=== PATIENT | male | born 1960 | race Caucasian/White ===

== ENCOUNTER 2018-07-23 22:12 | Inpatient (IN) | payer OTHER, SELFPAY ==
[2018-07-23] VITALS (19 sets, daily range): BP systolic 160–229; BP diastolic 81–156; PULSE 68–89; RESP 4–37; TEMP 36.6–36.8; O2SAT 91–98
--- NOTE | 2018-07-23 22:40 | W.ED.GENAD ---
Discharge Plan Disposition Patient Disposition: [facility] INPATIENT Condition: Poor Discharge Details Chief Complaint: SOB Clinical Impression: COPD exacerbation Primary Care Provider: None,None ED Provider: Camacho Brown Home Meds and New Rx's Prescriptions: No Action ibuprofen 200 mg Tablet 600 mg PO PRN PRNRF: 0 Medical Decision Making Patient presenting with increasing shortness of breath with diffuse wheezing throughout. He is a smoker. He has not seen a physician in years. His EKG is unremarkable other than left axis. Will start on neb treatments and give steroids. Will check laboratory studies including troponin. Will get chest x-ray. We will then reevaluate. 00:05 - Patient feels like he is breathing a little better but he is still short of breath with wheezing. His labs are unremarkable including normal BNP and troponin. Chest x-ray is unremarkable per my review and prelim radiology read. His blood pressure has come down but is still high. Room air saturations are > 95% after nebs. He is still SOB with wheezing and will benefit from admision for frequent nebs and IV steroids. He is agreeable to this. Case discussed with hospitalist, Dr. Meyer, who will accept the patient to hospitalist service. I have discussed code status with the patient. He does not wish to be intubated nor does he want to have CPR or resuscitation. I asked him a couple of times if he was sure about this. He replied yes. He does have family (brother and sister) but has not discussed this with them at all. Lab Data Lab results reviewed: Yes I reviewed the patient's lab results. ECG Data Attestation: I personally reviewed and interpreted this ECG (s) as follows: Prior ECG tracings: not available for review Interpretation: Sinus rhythm at 74. Left axis. Normal intervals. No acute ST changes. HPI General Mode of arrival: wheelchair. Date/Time Provider Initiated Documentation: 07/23/18 22:34. Limitations to Documentation: no limitations. Information obtained by: patient. HPI Narrative: Patient presents to ED with complaint of shortness of breath and cough. Patient reports symptoms gradually getting worse over the last couple of weeks. Cough is nonproductive. Shortness of breath is to the point where he could not work today. He describes some chest tightness for the last few days that he associated with coughing. He has had no fever. He has developed a rash over the last couple of days which is pleuritic in nature. He does smoke but is down to about 3 cigarettes a day as opposed to 2 packs. He does not have a primary care doctor and has not seen a physician in years. He denies any leg pain or swelling. He did not have acute onset of shortness of breath. He finally came in tonight as his breathing has just been getting steadily worse. Related Data Home Medications Medication Instructions Recorded Confirmed ibuprofen 600 mg PO PRN PRN 07/23/18 07/23/18 Allergies Allergy/AdvReac Type Severity Reaction Status Date / Time nut - unspecified Allergy Severe Anaphylaxsi Unverified 07/23/18 22:26 s latex Allergy Unverified 07/23/18 23:27 General Stated Complaint: SOB LILI: 2 Review of Systems Review of Systems 11/24 Review of Systems completed and is negative except as stated above in HPI (Systems reviewed: Const, Eyes, ENT, Resp, CV, GI, , MSK, Skin, Neuro) PFSH Social History Smoking/Tobacco Use Status: Current every day Tobacco Type: cigarettes Smoking cigarettes per day: 3 Exam Narrative Exam Narrative: Vitals: Afebrile. Markedly hypertensive. Normal saturations. Const: WDWN male in NAD. HEENT: NC/AT. Normal facial exam. Eyes: Normal conjunctiva and sclera. Neck: Supple. Trachea midline. Lungs: Normal respiratory effort. Lungs with diffuse wheezing throughout. Cor: RRR without murmur/gallop. Good radial pulses. GI: Soft. NT/ND. No guarding or rebound. Neuro: A+O x 3. CN grossly in tact. Good strength and no focal deficit. Ext: No C/C/E. No deformity or tenderness. Venous stasis changes of BLE. Skin: Warm and dry with pruritic, papular type rash that involves torso and extremities. Course Vital Signs Temperature 97.9 F 07/23/18 22:18 Pulse 74 07/23/18 22:18 Respiratory Rate 18 07/23/18 22:18 Blood Pressure 205/124 H 07/23/18 22:18 Pulse Oximetry 97 07/23/18 22:18 Temperature 97.9 F 07/23/18 22:18 Pulse 74 07/23/18 22:18 Respiratory Rate 24 07/23/18 22:29 Respiratory Effort 07/23/18 22:29 Blood Pressure 205/124 H 07/23/18 22:18 Blood Pressure Position Sitting 07/23/18 22:18 Pulse Oximetry 97 07/23/18 22:18 Oxygen Delivery Method Room Air 07/23/18 22:18 Oxygen Flow Rate 0 07/23/18 22:18 Pain Level 0 07/23/18 22:29
[2018-07-23 22:49] LABS: Abs Immature Grans 0.01 k/cumm (0.0-0.09); Absolute Basophil Count 0.02 k/cumm (0.0-0.2); Absolute Lymphocyte Count 0.95 k/cumm (1.2-3.4); Absolute Monocyte Count 0.32 k/cumm (0.11-0.7); Basophils % 0.6; Eosinophils % 11.4; HCT 44.8 % (40.0-50.0); HGB 15.1 g/dL (13.5-17.5); Immature Grans % 0.3; Lymphocytes % 27.1; Mean Corp. HGB Concentration 33.7 g/dL (32.0-36.0); Mean Corpuscular Hemoglobin 28.1 pg (27.0-33.0); Mean Corpuscular Volume 83.3 fL (80-95); Mean Platelet Volume 10.6 fL (8.0-11.0); Monocytes % 9.1; Neutrophils % 51.5; Platelet Count 143 x1000/uL (130-400); RBC 5.38 m/cumm (4.50-6.00); RBC Distribution Width 15.8 % (11.8-14.1)
[2018-07-23] MEDS: Albuterol/Ipratropium 3 ML UPD VIAL UPD (22:49)
[2018-07-23] MEDS: methylPREDNISolone SUCC 125 MG VIAL IVP (22:49)
[2018-07-23] MEDS: Albuterol 2.5 MG/3 ML INH SOLN VIAL UPD ×2 (23:04→23:12)
[2018-07-23 23:09] LABS: ALT 58 U/L (12-78); Albumin 3.3 g/dL (3.4-5.0); Alkaline Phosphatase 130 U/L (46-116); Anion Gap 7.8 mmol/L (3-11); BUN 15 mg/dL (7-18); Bilirubin, Total 0.3 mg/dL (0.2-1.0); CO2 29.2 mmol/L (21.0-32.0); Calcium 8.7 mg/dL (8.5-10.1); Chloride 105 mmol/L (98-107); Glucose 97 mg/dL (70-100); Magnesium 1.7 mg/dL (1.8-2.4); NT-proBNP 150 pg/mL; Potassium 4.1 mmol/L (3.5-5.1); Sodium 142 mmol/L (136-145); Total Protein 7.9 g/dL (6.4-8.2); Troponin I 0.02 ng/mL (0.00-0.06)
[2018-07-23 23:29] LABS: AST 74 U/L (15-37)
--- NOTE | 2018-07-23 23:37 | DI.RAD_ITS ---
SYMPTOM/DIAGNOSIS: COUGH, SOB PA AND LATERAL CHEST: The heart is normal in size. The lungs are clear. The mediastinal structures and pleura appear intact. CONCLUSION: Normal chest.
--- NOTE | 2018-07-23 23:41 | DI.VRAD_ITS ---
EXAM: XR Chest, 2 Views EXAM DATE/TIME: 07/23/2018 10:41 PM CLINICAL HISTORY: 58 years old, male; Signs and symptoms; Cough and shortness of breath; Patient HX: Cough, SOB x couple weeks, worsening TECHNIQUE: Imaging protocol: XR of the chest, 2 views. COMPARISON: No relevant prior studies available. FINDINGS: Lungs: Unremarkable. No consolidation. Pleural space: Unremarkable. No evidence of pneumothorax. Heart/Mediastinum: Unremarkable. Heart size within normal limits for technique. Bones/joints: Unremarkable. IMPRESSION: No acute findings. Dictated and Authenticated by: Jay Meneses MD. Ordering:NENA Sauer MD
[2018-07-24] VITALS (14 sets, daily range): BP systolic 130–179; BP diastolic 88–100; PULSE 67–95; RESP 2–24; TEMP 35.9–36.4; O2SAT 93–97
[2018-07-24 01:49] LABS: C-Reactive Protein 0.41 mg/dL (0.0-0.3)
[2018-07-24] MEDS: Albuterol 2.5 MG/3 ML INH SOLN VIAL UPD (01:55)
[2018-07-24] MEDS: Normal Saline Flush 10 ML SYR IVP ×3 (02:09→08:16)
[2018-07-24] MEDS: MAGNESIUM SULFATE 2 GM/50 ML BAG IVPB (02:09)
[2018-07-24 02:20] LABS: Procalcitonin < 0.1 ng/mL
[2018-07-24 02:22] LABS: ESR 15 MM/HR (1-20)
[2018-07-24 02:38] LABS: D-Dimer 548 ng/mlFEU (<500)
[2018-07-24] MEDS: amLODIPine 5 MG TAB PO ×2 (02:44→18:17)
[2018-07-24] MEDS: methylPREDNISolone SUCC 125 MG VIAL 80 MG IVP (05:41)
[2018-07-24 07:01] LABS: Abs Immature Grans 0.01 k/cumm (0.0-0.09); Absolute Basophil Count 0.01 k/cumm (0.0-0.2); Absolute Eosinophil Count 0.02 k/cumm (0.0-0.7); Absolute Lymphocyte Count 0.54 k/cumm (1.2-3.4); Absolute Monocyte Count 0.07 k/cumm (0.11-0.7); Absolute Neutrophil Count 2.57 k/cumm (1.2-6.7); Basophils % 0.3; Eosinophils % 0.6; Immature Grans % 0.3; Lymphocytes % 16.8; Mean Corp. HGB Concentration 33.3 g/dL (32.0-36.0); Mean Corpuscular Hemoglobin 27.6 pg (27.0-33.0); Mean Corpuscular Volume 82.9 fL (80-95); Mean Platelet Volume 10.5 fL (8.0-11.0); Monocytes % 2.2; Neutrophils % 79.8; Platelet Count 145 x1000/uL (130-400); RBC 5.43 m/cumm (4.50-6.00); RBC Distribution Width 15.7 % (11.8-14.1); White Blood Cell Count 3.22 k/cumm (4.4-10.8)
[2018-07-24 07:02] LABS: Anion Gap 10.4 mmol/L (3-11); BUN 14 mg/dL (7-18); CO2 25.6 mmol/L (21.0-32.0); CREATININE 1.15 mg/dL (0.70-1.30); Chloride 104 mmol/L (98-107); Glucose 192 mg/dL (70-100); Potassium 4.3 mmol/L (3.5-5.1); Sodium 140 mmol/L (136-145)
[2018-07-24] MEDS: Albuterol/Ipratropium 3 ML UPD VIAL UPD ×4 (07:40→20:51)
[2018-07-24] MEDS: Budesonide/Formoterol 160/4.5 6 GM 60 PUFF INH IH ×2 (07:47→20:50)
[2018-07-24] MEDS: Enoxaparin 40 MG/0.4 ML SYR SC (08:15)
[2018-07-24] MEDS: Ibuprofen 600 MG TAB PO ×2 (09:51→16:36)
[2018-07-24] MEDS: Chlorthalidone 25 MG TAB PO (10:11)
--- NOTE | 2018-07-24 11:34 | PHARADMIT ---
Admission Pharmacy Clinical Review COPD EXACERBATION (new diagnosis) Code Status DNR/DNI Current Weight Wgt-97.2 kg Renally Cleared and Narrow Therapeutic Index Meds CrCl~ 76 mL/min Meds-OK QTc Value / Action Taken QTc-413 NA BP Control, Fever BP- 167/100 Tmax- 36.8C Electrolytes reviewed Na-140 K+4.3 Mag-2.0 DVT Prophylaxis Lovenox 40m Opiate Usage / Scheduled Bowel Regimen Ordered No Yes Plt/SCr for Heparin / Enoxaparin Plts-145 SCr-1.15 INR for Warfarin NA H/H stable, WBC/Bands H&H- 15.0/45.0 WBC- 3.22 Antibiotic appropriateness NA Cultures and Sensitivities NA Surgical ABX d/c within 24 hr NA DM control / Insulin Dosing BG- 192 Heart Failure (Check EF%) (SAQIB's, B-Block, Diuretics) Norvasc, Chlorthalidone(both New), IV to PO Switch No Home Meds Reviewed Yes Home Meds Not Ordered None, Ordered Comments
--- NOTE | 2018-07-24 11:57 | W.PM.PROGNOT ---
Date of Service Date of service: 07/24/18 Time of Service: 11:57 Assessment and Plan (1) Restrictive airway disease: Start date: 07/24/18 Start time: 12:10 Current visit: Yes Status: Acute Questionable underlying COPD, has never had PFT will need an outpatient study to diagnose. Treat with steroids, nebs, udrafts. Spoke at length about smoking cessation. Lungs with rhonchi, RA saturation 97% however RODRIGUEZ. (2) HTN (hypertension): Start date: 07/24/18 Start time: 12:11 Current visit: Yes Status: Chronic Was being monitored as an outpatient started on norvasc and chlorithadone for BP in 190's systolically and 100's diastolically. Continue to monitor bp. (3) Tobacco abuse: Start date: 07/24/18 Start time: 12:12 Current visit: Yes Status: Acute Endorses smoking marble 1/2 pack daily with marijuana. Nicoderm patch ordered. Smoking cessation discussed. (4) Headache: Start date: 07/24/18 Start time: 12:13 Current visit: Yes Status: Acute C/O h.a x weeks, could be related to BP, ibuprofen 600 given for headache. Recommend follow up with neurology if headache continues. (5) DVT prophylaxis: Start date: 07/24/18 Start time: 12:13 Current visit: Yes Status: Acute enoxaparin Subjective Patient reports: no new complaints Interval history since last seen: Continues to have SOB with excertion, Lungs with rhonchi, slight expiratory wheezing to upper lobes. RA saturation 97. Transitioned to PO steroids BID. Asking to go home though he could use another night of nebs. Nebs changed to every 4 hours, continue updrafts, symbicort, steroids. Spoke at length about smoking cessation and COPD, will need PFT as an outpatient. Nicoderm patch ordered for patient. Also c/o headache could be blood pressure related ibuprofen for headache. BP at 167/100 after on dose norvasc, chloritaldone added to bp medication. Continue to monitor patient and make adjustments as needed. Denies SOB, CP, n/v/d Exam Const General: cooperative and no acute distress HENMT Head: normal to inspection Eyes General: appearance normal, both eyes and all related structures Neck Lymphatic: no lymphadenopathy noted and no lymphedema noted Chest Chest: normal inspection of the chest Resp Effort & Inspection: able to speak in complete sentences Auscultation: rhonchi and wheezes (scattered) expiratory wheezes Cardio Jugular venous pressure: no JVD Rate: regular rate Rhythm: regular rhythm GI Inspection: normal to inspection Palpation: soft Auscultation: normal bowel sounds Skin General skin exam: no rashes or lesions noted Rashes: no rashes Neuro General: alert, awake and oriented x3 Cognition: normal cognition Speech: speech normal Objective Objective Clinical Data: Abnormal lab results 07/23/18 07/23/18 07/23/18 Range/Units 00:35 22:35 22:35 WBC 3.50 L (4.4-10.8) k/cumm RDW 15.8 H (11.8-14.1) % Absolute Lymphocytes 0.95 L (1.2-3.4) k/cumm Absolute Monocytes (0.11-0.7) k/cumm D-Dimer (<500) ng/mlFEU Glucose (70-100) mg/dL Magnesium 1.7 L (1.8-2.4) mg/dL AST 74 H (15-37) U/L Alkaline Phosphatase 130 H (46-116) U/L C-Reactive Protein 0.41 H (0.0-0.3) mg/dL Albumin 3.3 L (3.4-5.0) g/dL 07/24/18 07/24/18 07/24/18 Range/Units 00:35 06:36 06:36 WBC 3.22 L (4.4-10.8) k/cumm RDW 15.7 H (11.8-14.1) % Absolute Lymphocytes 0.54 L (1.2-3.4) k/cumm Absolute Monocytes 0.07 L (0.11-0.7) k/cumm D-Dimer 548 H (<500) ng/mlFEU Glucose 192 H D (70-100) mg/dL Magnesium (1.8-2.4) mg/dL AST (15-37) U/L Alkaline Phosphatase (46-116) U/L C-Reactive Protein (0.0-0.3) mg/dL Albumin (3.4-5.0) g/dL Vital Signs Temperature 36.2 C L 07/24/18 07:44 Temperature Source Tympanic 07/24/18 07:44 Pulse 95 H 07/24/18 07:44 Pulse Rhythm Regular 07/24/18 07:56 Pulse 72 07/24/18 00:20 Respiratory Rate 24 07/24/18 07:44 Respiratory Effort 07/24/18 07:56 Respiratory Depth Shallow 07/24/18 07:56 Respiratory Pattern Tachypnea 07/24/18 07:56 Blood Pressure 167/100 H 07/24/18 07:44 Blood Pressure Mean 109 07/24/18 00:01 Blood Pressure Position Sitting 07/23/18 22:18 Pulse Oximetry 97 07/24/18 07:44 Oxygen Delivery Method Room Air 07/24/18 07:44 Oxygen Flow Rate 0 07/24/18 07:44 Pain Level 0 07/24/18 07:44 Intake & Output 07/23/18 07/23/18 07/24/18 11:59 23:59 11:59 Intake Total 570 / 570 Balance 570 / 570 Weight 96.1 kg 97.2 kg Intake: Oral 570 / 570 Laboratory Results WBC 3.22 k/cumm (4.4-10.8) L 07/24/18 06:36 RBC 5.43 m/cumm (4.50-6.00) 07/24/18 06:36 Hgb 15.0 g/dL (13.5-17.5) 07/24/18 06:36 Hct 45.0 % (40.0-50.0) 07/24/18 06:36 MCV 82.9 fL (80-95) 07/24/18 06:36 MCH 27.6 pg (27.0-33.0) 07/24/18 06:36 MCHC 33.3 g/dL (32.0-36.0) 07/24/18 06:36 RDW 15.7 % (11.8-14.1) H 07/24/18 06:36 Plt Count 145 x1000/uL (130-400) 07/24/18 06:36 MPV 10.5 fL (8.0-11.0) 07/24/18 06:36 Immature Gran % 0.3 07/24/18 06:36 Neutrophils % 79.8 07/24/18 06:36 Lymphocytes % 16.8 07/24/18 06:36 Monocytes % 2.2 07/24/18 06:36 Eosinophils % 0.6 07/24/18 06:36 Basophils % 0.3 07/24/18 06:36 Absolute Neutrophils 2.57 k/cumm (1.2-6.7) 07/24/18 06:36 Absolute Lymphocytes 0.54 k/cumm (1.2-3.4) L 07/24/18 06:36 Absolute Monocytes 0.07 k/cumm (0.11-0.7) L 07/24/18 06:36 Absolute Eosinophils 0.02 k/cumm (0.0-0.7) 07/24/18 06:36 Absolute Basophils 0.01 k/cumm (0.0-0.2) 07/24/18 06:36 ESR 15 MM/HR (1-20) 07/23/18 00:35 D-Dimer 548 ng/mlFEU (<500) H 07/24/18 00:35 Sodium 140 mmol/L (136-145) 07/24/18 06:36 Potassium 4.3 mmol/L (3.5-5.1) 07/24/18 06:36 Chloride 104 mmol/L (98-107) 07/24/18 06:36 Carbon Dioxide 25.6 mmol/L (21.0-32.0) 07/24/18 06:36 Anion Gap 10.4 mmol/L (3-11) 07/24/18 06:36 BUN 14 mg/dL (7-18) 07/24/18 06:36 Creatinine 1.15 mg/dL (0.70-1.30) 07/24/18 06:36 Estimated GFR/1.73 m2 >= 60.00 (mL/min/1.73m2) 07/24/18 06:36 Glucose 192 mg/dL (70-100) H D 07/24/18 06:36 Calcium 9.0 mg/dL (8.5-10.1) 07/24/18 06:36 Magnesium 2.0 mg/dL (1.8-2.4) 07/24/18 06:36 Total Bilirubin 0.3 mg/dL (0.2-1.0) 07/23/18 22:35 AST 74 U/L (15-37) H 07/23/18 22:35 ALT 58 U/L (12-78) 07/23/18 22:35 Alkaline Phosphatase 130 U/L (46-116) H 07/23/18 22:35 Troponin I 0.02 ng/mL (0.00-0.06) 07/23/18 22:35 C-Reactive Protein 0.41 mg/dL (0.0-0.3) H 07/23/18 00:35 NT-Pro-B Natriuret Pep 150 pg/mL (-299) 07/23/18 22:35 Total Protein 7.9 g/dL (6.4-8.2) 07/23/18 22:35 Albumin 3.3 g/dL (3.4-5.0) L 07/23/18 22:35 Procalcitonin < 0.1 ng/mL 07/23/18 00:35
--- NOTE | 2018-07-24 14:10 | CHAPLAIN ---
Orlin had just has a visit from his sister when I arrived. He said he wasn't on his way out, but I told him I visit most all patients. He was pleasant and said he appreciated the visit.
--- NOTE | 2018-07-24 16:56 | PDOC.CMIN ---
- If Service Date Differs Date of service: 07/24/18 Time of Service: 16:56 Care Management Initial Assess REASON FOR HOSPITALIZATION:: COPD PAST MEDICAL HISTORY/PAST SURGICAL HISTORY:: HTN, restrictive airway disease, tobacco abuse, headaches. PREVIOUS FUNCTIONAL STATUS/SOCIAL/FAMILY SUPPORTS:: Orlin is indepdent he lives in [place], [place]. He works fulltime at [employer]. He is independent with ADLS including transportation. CURRENT FUNCTIONAL STATUS:: Orlin is sitting up in the chair when CM into visit. He is about to start his updraft treatment when CM into meet with him. He reports he does not have a long history of COPD that he is aware of. ADVANCE DIRECTIVES:: None on file - CM offered packet. Has patient been provided with information about the portal?: Yes Did the patient sign up for the portal?: No CODE STATUS:: DNR/DNI INSURANCE COVERAGE / FINANCIAL ISSUES:: CBA CURRENT HOME/COMMUNITY SERVICES/EQUIPMENT:: None PRIMARY CARE PHYSICIAN:: POTENTIAL DISCHARGE NEEDS:: Follow up appointment with primary care provider, outpatient schedule for PFT's PATIENT/FAMILY EDUCATION NEEDS:: Discharge education, limitations and follow up plan of care including ask me three. Pt has a blue book with education related to COPD ANTICIPATED BARRIERS TO DISCHARGE:: none TRANSPORTATION:: Via private car at time of discharge. PLAN:: Orlin is receiving oral steroids, resp support including updrafts. Anticipate he will need follow up outpatient PFT's and follow up with primary care provider. Anticiapte no other home services at time of discharge. CM to continue to provide support discharge planning and disposition.
--- NOTE | 2018-07-24 17:09 | INITIAL_ITS ---
- If Service Date Differs Date of service: 07/24/18 Time of Service: 16:56 Care Management Initial Assess REASON FOR HOSPITALIZATION:: COPD PAST MEDICAL HISTORY/PAST SURGICAL HISTORY:: HTN, restrictive airway disease, tobacco abuse, headaches. PREVIOUS FUNCTIONAL STATUS/SOCIAL/FAMILY SUPPORTS:: Orlin is indepdent he lives in [place], [place]. He works fulltime at [employer]. He is independent with ADLS including transportation. CURRENT FUNCTIONAL STATUS:: Orlin is sitting up in the chair when CM into visit. He is about to start his updraft treatment when CM into meet with him. He reports he does not have a long history of COPD that he is aware of. ADVANCE DIRECTIVES:: None on file - CM offered packet. Has patient been provided with information about the portal?: Yes Did the patient sign up for the portal?: No CODE STATUS:: DNR/DNI INSURANCE COVERAGE / FINANCIAL ISSUES:: CBA CURRENT HOME/COMMUNITY SERVICES/EQUIPMENT:: None PRIMARY CARE PHYSICIAN:: POTENTIAL DISCHARGE NEEDS:: Follow up appointment with primary care provider, outpatient schedule for PFT's PATIENT/FAMILY EDUCATION NEEDS:: Discharge education, limitations and follow up plan of care including ask me three. Pt has a blue book with education related to COPD ANTICIPATED BARRIERS TO DISCHARGE:: none TRANSPORTATION:: Via private car at time of discharge. PLAN:: Orlin is receiving oral steroids, resp support including updrafts. Anticipate he will need follow up outpatient PFT's and follow up with primary care provider. Anticiapte no other home services at time of discharge. CM to continue to provide support discharge planning and disposition.
[2018-07-24] MEDS: predniSONE 20 MG TAB 60 MG PO (20:50)
[2018-07-24] MEDS: Pantoprazole 40 MG TABCR PO (20:53)
[2018-07-25] VITALS (7 sets, daily range): BP systolic 99–153; BP diastolic 51–82; PULSE 84–110; RESP 1–19; TEMP 35.9–36.8; O2SAT 94–98
[2018-07-25] MEDS: Albuterol/Ipratropium 3 ML UPD VIAL UPD ×4 (00:03→11:26)
[2018-07-25] MEDS: Budesonide/Formoterol 160/4.5 6 GM 60 PUFF INH IH (07:24)
[2018-07-25] MEDS: Nicotine 21 MG/24 HR PATCH TD (07:44)
[2018-07-25] MEDS: Enoxaparin 40 MG/0.4 ML SYR SC (07:44)
[2018-07-25] MEDS: Pantoprazole 40 MG TABCR PO (07:45)
[2018-07-25] MEDS: Chlorthalidone 25 MG TAB PO (07:45)
[2018-07-25] MEDS: amLODIPine 5 MG TAB PO (07:46)
[2018-07-25] MEDS: predniSONE 20 MG TAB 60 MG PO (07:46)
--- NOTE | 2018-07-25 12:39 | W.PM.DS.N ---
Date of service: 07/25/18 Time of Service: 12:39 DS: Diagnosis Discharge Diagnosis (1) Restrictive airway disease: Status: Acute (2) HTN (hypertension): Status: Chronic (3) Tobacco abuse: Status: Acute (4) Headache: Status: Acute Discharge Plan Disposition Patient Disposition: HOME Condition: Improving Discharge Details Reason For Visit: COPD EXACERBATION Admit Date/Time: 07/24/18 00:04 Admit Provider: Daquan Meyer Attending Provider: Daquan Meyer Primary Care Provider: Roni Zhang [facility] Course Hospital Course: Mr. Daniel is a very pleasant 58 year old male smoker who has not seen a provider for several years, who presented to the ED on 07/23/18 with progressively worsening shortness of breath, cough and wheezing. He does not have a documented hisotry of COPD although he has never had PFTs. He had a chest x-ray in the ED which was negative for a acute process. EKG showed normal sinus rhythm with a rate of 74bpm, left axis, no acute ST segment changes. His labs showed no leukocytosis, normal BNP, and negative troponin. He was found to be hypertensive in the ED. He was admitted to the med/surg floor for likely COPD exacerbation and blood pressure control. He was initiated on steroids. He was counseled on smoking cessation, he was started on a nicotine patch which he wishes to continue as an outpatient. His breathing improved, he did not feel wheezy or short of breath on the day of discharge. His lung exam revealed a few scattered wheezes, no rales. He was mildly tachycardic after nebulizer treatments. He was started on Norvasc and chlorthalidone for blood pressure and appropriate control was achieved. His blood pressure was 200s over 100s on admission. At the time of discharge, his blood pressure was down to 140/76. He will be advised to continue to monitor his blood pressure at home. Consider changing blood pressure regimen if he remains tachycardic without nebulizer treatments. He did not have a PCP on admission. Dr. Ochoa has agreed to follow him an an outpatient. He will be discharged home on a prednisone taper. He will have a new prescription for nicotine patches. He is referred for pulmonary function testing as an outpatient. Home Meds and New Rx's Prescriptions: New chlorthalidone 25 mg Tablet 25 mg PO DAILY Qty: 30 RF: 0 amlodipine 5 mg Tablet 5 mg PO DAILY Qty: 30 RF: 0 prednisone 10 mg tablet 10 mg PO DAILY Qty: 20 RF: 0 nicotine 14 mg/24 hr patch 24 hour 1 patch TD DAILY Qty: 14 RF: 0 omeprazole 40 mg capsule,delayed release(DR/EC) 40 mg PO DAILY Qty: 14 RF: 0 Continued ibuprofen 200 mg Tablet 600 mg PO PRN PRNRF: 0 Discharge Instructions Instructions: COPD (Chronic Obstructive Pulmonary Disease) (DC), Pulmonary Function Tests (DC) Additional Instructions: Monitor your blood pressure at home. Taper off steroids as follows: Take 4 tablets x 2 days, then decrease to 3 tablets x 2 days, then 2 tablets x 2 days, then 1 tablet x 2 days, then stop. Take omeprazole to protect your stomach while on prednisone. You have been referred for Pulmonary Function Testing as an outpatient. Follow up with Dr. Ochoa as scheduled. Continue smoking cessation. Take care! Stand Alone Forms: Nursing Discharge Form Referrals: Jay Ochoa MD [ [facility] STAFF PHYSICIAN] - 08/08/18 10:45 am Activity:: Activity as Tolerated Equipment/Supplies:: No Equipment Needed Diet:: As Tolerated Discharge Orders Discharge Orders: Discharge Order (Routine); Ordered 07/25/18 Ordered By: Laura Lagos Other Ambulatory Orders: PFT Spirometry (Outpt) (ONCE) Timeframe: [id number] Location: Determined by Patient Ordered By: Laura Lagos Exam Narrative Exam Narrative: General: Sitting up in bed, alert and oriented x3, answers questions appropriately. Speech is clear and articulate. HEENT: Normocephalic, atraumatic, letitia complexion, extraocular movements intact, mucous membranes moist. Neck: Supple, no JVD. Respiratory: Respirations appear even and unlabored, few scattered expiratory wheezes noted on lung exam. No rales. Cardiovascular: Heart sounds regular, mildly tachycardic, no murmur appreciated. GI: Normoactive bowel sounds x4 quadrants, abdomen soft, nontender on palpation, no masses appreciated. Extremities: Well perfused, no clubbing, cyanosis or edema. Skin: Tattoos. No open areas noted. DS: Data Vitals/I&O Vitals and I&O: Vital Signs Temperature 36.8 C 07/25/18 12:02 Temperature Source Tympanic 07/25/18 12:02 Pulse 102 H 07/25/18 12:02 Pulse Rhythm Regular 07/24/18 23:54 Pulse 72 07/24/18 00:20 Respiratory Rate 19 07/25/18 12:02 Respiratory Effort 07/24/18 23:54 Respiratory Depth Normal 07/24/18 23:54 Respiratory Pattern Normal 07/24/18 23:54 Blood Pressure 140/76 07/25/18 12:02 Blood Pressure Mean 109 07/24/18 00:01 Blood Pressure Position Sitting 07/23/18 22:18 Pulse Oximetry 96 07/25/18 12:02 Oxygen Delivery Method Room Air 07/25/18 12:02 Oxygen Flow Rate 0 07/25/18 12:02 Pain Level 2 07/24/18 10:51 Comment 07/25/18 09:27 Intake & Output 07/24/18 07/25/18 07/25/18 23:59 11:59 23:59 Intake Total 490 / 1060 710 / 710 Balance 490 / 1060 710 / 710 Intake: Oral 490 / 1060 710 / 710 Other: Comment indep to BR. VOiding into toilet Voiding Methods Toilet Completed studies during hospitalization [Text1]: PA AND LATERAL CHEST: The heart is normal in size. The lungs are clear. The mediastinal structures and pleura appear intact. CONCLUSION: Normal chest. [facility] Social History Smoking/Tobacco Use Status: Current every day Tobacco Type: cigarettes Smoking cigarettes per day: 3
--- NOTE | 2018-07-25 14:24 | PDOC.CMDIS ---
- If Service Date Differs Date of service: 07/25/18 Time of Service: 14:24 LACE Index Scoring Tool - Questions: Length of Stay (in days): 3 Acuity (Admit via E.D.?): Yes Comorbidities: Chronic Pulmonary Disease E.D. Visits: 1 - Answers: Total Score: 9 Risk of Readmission: Low Risk Care Management Discharge Reason for Hospitalization: COPD Discharge Plan: Orlin is being discharged home today and follow up with new PCP . He will be discharged home with new medications. He will have outpatient follow up for PFT.'s and ongoing management [facility] PCP. Patient/Family Education Needs: Discharge education, limitations and follow up plan of care including ask me three and self management.
--- NOTE | 2018-07-25 14:38 | CMDISCH_ITS ---
- If Service Date Differs Date of service: 07/25/18 Time of Service: 14:24 LACE Index Scoring Tool - Questions: Length of Stay (in days): 3 Acuity (Admit via E.D.?): Yes Comorbidities: Chronic Pulmonary Disease E.D. Visits: 1 - Answers: Total Score: 9 Risk of Readmission: Low Risk Care Management Discharge Reason for Hospitalization: COPD Discharge Plan: Orlin is being discharged home today and follow up with new PCP . He will be discharged home with new medications. He will have outpatient follow up for PFT.'s and ongoing management [facility] PCP. Patient/Family Education Needs: Discharge education, limitations and follow up plan of care including ask me three and self management.
--- NOTE | 2018-07-28 16:10 | HPE_ITS ---
DATE OF ADMISSION: July 23, 2018 DATE OF DICTATION: July 28, 2018 DATE OF DISCHARGE: July 25, 2018 CHIEF COMPLAINT: Shortness of breath. ASSESSMENT: 1. Progressive exertional dyspnea, now progressing to dyspnea at rest associated with acute bronchosp astic airway. [id number] smoker. Most-likely cause is COPD exacerbation. 2. Atypical chest pain associated with coughing. 3. Untreated hypertension associated with headaches. 4. 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 PLAN: The patient will be admitted overnight and treated for a COPD exacerbation. He will be started on an ti-hypertensives including Norvasc, which was started on the evening of admission. Further adjustmen t of blood pressure medications will be performed in the morning by the day hospitalist. Patient markie l continue to receive IV corticosteroids for his acute bronchospasm, as well as aerosolized bronchodi lators including Duo-Neb treatments. Patient has been counselled on the need to quit smoking. Once his blood pressures stabilized and his COPD exacerbation has been treated, further evaluation should be performed as an outpatient for cardiac stress testing to evaluate future risk for ischemic events. HISTORY OF PRESENT ILLNESS: This is a 58-year-old male who has not been to a doctor in a n umber of years. He is a chronic smoker for the last 50 years, up to 3 packs a day, currently down to about 2 packs a day. For the last two weeks he's been having increasing shortness of breath and a n on-productive cough, along with chest tightness with his cough, not associated with any fever or chil ls. The patient presented to the Emergency Department with progressive dyspnea. He was seen in the Emerg ency Department by Dr. Camacho Brown. Workup included routine labs, along with a chest x-ray and EKG. CBC showed no leukocytosis; there was actually a mild leukopenia of 3500; no anemia. D-dimer was s lightly elevated at 548, but within the age adjusted normal parameters. Chemistry profile showed no electrolyte abnormalities; he had normal BUN and creatinine. LFT's were slightly elevated with an T of 74 and alkaline phosphatase 130, normal glucose of 97, normal renal function, normal Troponin of 0.02. Procalcitonin level was < 0.1. The patient was treated in the Emergency Department with multiple aerosolized bronchodilators. He wa s started on IV Solumedrol and was admitted to the hospital for treatment of acute COPD exacerbation, although the patient has not had a formal diagnostic workup for COPD, he was found to be bronchospas tic in the Emergency Room, but markedly improved after the aerosolized bronchodilators. During his initial evaluation he was found to be hypertensive with blood pressures as high as 229/124 , which necessitated initiation of Norvasc on the evening of admission, which brought his blood press ure down to 168/81. PAST MEDICAL HISTORY: 1. Labile blood pressures. 2. Significant smoking history of 2 packs a day for the last 50 years. Otherwise he has been relatively healthy. MEDICATIONS: None. ALLERGIES: No known drug allergies. 1. Anaphylactic reaction to nuts. 2. Allergic to latex. REVIEW OF SYSTEMS: CONSTITUTIONAL: Negative for fevers, chills, night sweats. CARDIOVASCULAR: No exertional chest pain, but he's had chest discomfort with coughing. PULMONARY: Significant for non-productive cough and progressive shortness of breath over the last tw o weeks. NEUROLOGIC: Significant for bilateral frontal headaches. The rest of review of systems is unremarkable. PHYSICAL EXAMINATION: VITAL SIGNS: Per nursing notes. HEENT: Unremarkable. NECK: Without JVD; normal carotid pulses, no bruits. LUNGS: Reveal diffuse end-expiratory wheezes; no rales; no rhonchi. HEART: Regular without murmur, rub or gallop. ABDOMEN: Soft and nondistended; nontender; no organomegaly; no palpable masses. PERIPHERAL EXAMINATION: Reveals no peripheral cyanosis or edema. No calf tenderness or swelling. NEUROLOGIC EXAM: Grossly unremarkable. Normal motor strength. Normal sensation to light touch in b oth upper and lower extremities. Normal range of motion. No focal nerve deficits. DTR's not tested . Genital and rectal exam deferred. REVIEW OF DIAGNOSTIC STUDIES: 1. Portable chest x-ray was read by [facility] as showing no acute findings. This is a 2-view chest x-ray . 2. EKG demonstrates normal sinus rhythm at a rate of 74 bpm with evidence of an old inferior infarct with Q-waves in II, III and AVF. No acute ischemic ST or T-wave changes. LABORATORY STUDIES: 1. CBC shows no leukocytosis, white count 3500, no anemia, hemoglobin 15 grams, hematocrit 44%. 2. ESR is normal at 15. 3. D-dimer is elevated at 548, which is just above the upper limit of normal. The upper limit of nor mal is 500, but his age adjusted normal limit would be 560. 4. CMP - electrolytes within normal limits; BUN and creatinine at normal at 15 and 1.1; magnesium sli ghtly low at 1.7; AST is mildly elevated at 74; alkaline phosphatase 130. Procalcitonin level was no rmal at < 0.1.
== END 2018-07-25 13:50 | disposition home or self-care (01) | DRG 206 ==
LOC: ER 07-24 00:11 → MS 07-24 00:45
PROVIDERS: Admitting Provider Internal Medicine; Emergency Provider Emergency Medicine; PCP Internal Medicine; Visit Provider Internal Medicine
DX: J98.4 Other disorders of lung (principal); I10 Essential (primary) hypertension; F17.210 Nicotine dependence, cigarettes, uncomplicated; R51 Headache
CPT/HCPCS: 36415; 80048; 80053; 84145; 85652; 93005; 94640; 99233; 99239; 99285; J1650; 71046; 83735; 83880; 84484; 85025; 85379; 86140; 93010; 99217; J2930; J7512; J7613; J7620

== ENCOUNTER 2018-08-08 13:50 | Outpatient (CLI) | payer OTHER, SELFPAY ==
[2018-08-08] MEDS: Omnipaque 350 MG/ML 100 ML BTL IJ (13:17)
--- NOTE | 2018-08-08 13:18 | DI.CT_ITS ---
SYMPTOM/DIAGNOSIS: PLEURITIC CHEST PAIN, R07.81 CT ANGIOGRAPHY CHEST: CT angiography was performed with multi slice acquisition and multi planar and 3D reconstruction. CT angiography of the chest was performed with a bolus infusion of 100 cc's of Omnipaque 350. Images obtained through the upper abdomen show unremarkable appearance of visualized portions of the liver, spleen, pancreas, adrenals and kidneys. No mediastinal or hilar adenopathy. Tracheobronchial tree appears intact. There is predominantly subpleural emphysema mostly in the upper lobes. Some centrilobular emphysema appears to be present. No focal consolidation is seen. No pleural effusion or pneumothorax. No evidence of pulmonary embolic disease. No abnormality of the thoracic aorta. CONCLUSION: No evidence of pulmonary emboli disease. Pulmonary emphysematous changes as described above.
== END 2018-08-08 14:10 ==
PROVIDERS: PCP Internal Medicine; Visit Provider Internal Medicine
DX: R07.81 Pleurodynia (principal)
CPT/HCPCS: 71275; J3490

== ENCOUNTER 2018-08-08 19:25 | Outpatient (REF) | payer OTHER, SELFPAY ==
[2018-08-08 21:00] LABS: HCT 48.2 % (40.0-50.0); HGB 16.3 g/dL (13.5-17.5); Mean Corp. HGB Concentration 33.8 g/dL (32.0-36.0); Mean Corpuscular Hemoglobin 27.7 pg (27.0-33.0); Mean Platelet Volume 11.2 fL (8.0-11.0); Platelet Count 172 x1000/uL (130-400); RBC 5.88 m/cumm (4.50-6.00); RBC Distribution Width 15.6 % (11.8-14.1)
[2018-08-08 21:42] LABS: ALT 43 U/L (12-78); AST 25 U/L (15-37); Albumin 3.8 g/dL (3.4-5.0); Alkaline Phosphatase 125 U/L (46-116); BUN 21 mg/dL (7-18); Bilirubin, Total 0.4 mg/dL (0.2-1.0); CREATININE 1.17 mg/dL (0.70-1.30); Calcium 9.3 mg/dL (8.5-10.1); Calculated LDL 107 mg/dL; Chloride 102 mmol/L (98-107); Cholesterol 183 mg/dL (50-200); Glucose 90 mg/dL (70-100); HDL Cholesterol 36 mg/dL (40-60); Potassium 3.7 mmol/L (3.5-5.1); Sodium 140 mmol/L (136-145); TSH 2.61 uIU/mL (0.358-3.74); Total Protein 8.1 g/dL (6.4-8.2); Triglyceride 204 mg/dL (30-150)
[2018-08-11 11:21] LABS: Hepatitis C Ab w Rflx HCV PCR Negative (NEGAT)
== END 2018-08-08 19:45 ==
LOC: NCHCN 19:25
PROVIDERS: PCP Internal Medicine; Visit Provider Internal Medicine
DX: I10 Essential (primary) hypertension (principal); R94.5 Abnormal results of liver function studies; Z11.59 Encounter for screening for other viral diseases; R06.09 Other forms of dyspnea; R07.81 Pleurodynia; R13.19 Other dysphagia; R53.83 Other fatigue; J44.9 Chronic obstructive pulmonary disease, unspecified
CPT/HCPCS: 80053; 80061; 83721; 85027; 86803; 84443

== ENCOUNTER 2018-08-19 02:19 | Outpatient (CLI) | payer OTHER, SELFPAY ==
[2018-08-19] MEDS: Inhaler, Assist Device 1 EACH MC (14:14)
[2018-08-19] MEDS: Albuterol HFA 18 GM 200 PUFF INH IH (14:15)
--- NOTE | 2018-08-19 15:44 | PFT_ITS ---
PULMONARY FUNCTION TEST REPORT DATE OF SERVICE: August 19, 2018 REQUESTING PROVIDER: Jay Ochoa M.D. Spirometry shows moderately severe obstructive airways disease with significant bronchodilator response. Lung volumes show no evidence of restriction. There is mild hyperinflation. Diffusion capacity mildly reduced, even when corrected to alveolar volume. Airways resistance elevated. IMPRESSION: Moderately severe obstructive airways disease with significant bronchodilator response. This is associated with mild hyperinflation and mild diffusion defect. Clinical correlation recommended. GAURAV/belen D/
== END 2018-08-19 02:39 ==
PROVIDERS: PCP Internal Medicine; Visit Provider Internal Medicine
DX: J44.9 Chronic obstructive pulmonary disease, unspecified (principal); R07.81 Pleurodynia; R06.09 Other forms of dyspnea; Z87.891 Personal history of nicotine dependence
CPT/HCPCS: 94060; 94150; 94726; 94729

== ENCOUNTER 2019-07-20 15:10 | Outpatient (REF) | payer OTHER, SELFPAY ==
[2019-07-20 20:44] LABS: HCT 43.9 % (40.0-50.0); HGB 14.6 g/dL (13.5-17.5); Mean Corp. HGB Concentration 33.3 g/dL (32.0-36.0); Mean Corpuscular Hemoglobin 27.9 pg (27.0-33.0); Mean Corpuscular Volume 83.9 fL (80-95); Mean Platelet Volume 11.2 fL (8.0-11.0); Platelet Count 151 x1000/uL (130-400); RBC 5.23 m/cumm (4.50-6.00); RBC Distribution Width 15.4 % (11.8-14.1); White Blood Cell Count 4.67 k/cumm (4.4-10.8)
[2019-07-20 20:50] LABS: Anion Gap 10.2 mmol/L (3-11); BUN 16 mg/dL (7-18); CO2 26.8 mmol/L (21.0-32.0); CREATININE 1.18 mg/dL (0.70-1.30); Calcium 8.8 mg/dL (8.5-10.1); Chloride 105 mmol/L (98-107); Glucose 86 mg/dL (74-106); Potassium 4.5 mmol/L (3.5-5.1); Sodium 142 mmol/L (136-145)
== END 2019-07-20 15:30 ==
LOC: NCHCN 15:10
PROVIDERS: PCP Internal Medicine; Visit Provider Internal Medicine
DX: R13.13 Dysphagia, pharyngeal phase (principal); I10 Essential (primary) hypertension; F32.9 Major depressive disorder, single episode, unspecified; J44.9 Chronic obstructive pulmonary disease, unspecified
CPT/HCPCS: 80048; 85027

== ENCOUNTER 2019-07-22 01:02 | Outpatient (CLI) | payer OTHER, SELFPAY ==
--- NOTE | 2019-07-22 | DI.RAD_ITS ---
EXAM: RF BARIUM SWALLOW CLINICAL HISTORY: PHARYNGEAL DYSHAGIA, R13.13 TECHNIQUE: 2D and realtime digital imaging was performed. CONTRAST MATERIAL: Oral contrast was administered. COMPARISON: No exams were available for comparison FINDINGS: CHEST X-RAY: The heart and pulmonary vasculature are within normal limits. The lungs are clear. No pl eural effusion or pneumothorax is present. The bones are within normal limits fo the patient's age. ESOPHAGRAM: The esophagus is patent with no evidence for erosions, fold thickening, strictures, or ma sses. With regards to the motility, there is a normal primary stripping wave. No tertiary contraction s were noted. There is a small hiatal hernia. No gastroesophageal reflux is present. Note was made of penetration of the oral contrast into the upper airway but no aspiration was identified. IMPRESSION: 1. Small hiatal hernia. 2. Penetration of oral contrast into the upper airway but no aspiration was identified.
[2019-07-22] MEDS: Simethicone/Sod Bicarb/Cit Ac, 4 gram PACKET 1 PACKET PO (09:27)
[2019-07-22] MEDS: Barium Sulfate 60% W/V 355 ML BTL 150 ML PO (09:30)
== END 2019-07-22 01:22 ==
PROVIDERS: PCP Internal Medicine; Visit Provider Internal Medicine
DX: R13.13 Dysphagia, pharyngeal phase (principal); K44.9 Diaphragmatic hernia without obstruction or gangrene
CPT/HCPCS: 74221; J3490

== ENCOUNTER 2019-12-11 13:31 | Emergency (ER) | payer OTHER, SELFPAY ==
[2019-12-11 13:38] VITALS: BP 144/89; PULSE 89; RESP 18; TEMP 36.3; O2SAT 98
--- NOTE | 2019-12-11 13:55 | ED.GENADUL_ITS ---
Discharge Plan Disposition Patient Disposition: HOME Condition: Stable Discharge Details Clinical Impression: Dental infection Primary Care Provider: Jay Ochoa ED Provider: Daquan Rabago Home Meds and New Rx's Prescriptions: New amoxicillin 875 mg tablet 875 mg PO BID 10 Days Qty: 20 RF: 0 Continued chlorthalidone 25 mg Tablet 25 mg PO DAILY Qty: 30 RF: 0 amlodipine 5 mg Tablet 5 mg PO DAILY Qty: 30 RF: 0 omeprazole 40 mg capsule,delayed release(DR/EC) 40 mg PO DAILY Qty: 14 RF: 0 venlafaxine 75 mg capsule,extended release 24hr 75 mg PO DAILY RF: 0 Anoro Ellipta 62.5-25 mcg/actuation blister with device 1 inh INHALATION DAILY RF: 0 Discharge Instructions Instructions: Dental Abscess (ED) Additional Instructions: Amoxicillin as directed. Pjud-kwm-rercgla Tylenol, Motrin, Orajel as directed. Cool and/or warm compresses every 2 hours for 20 minutes. Salt water gargle swish and spit as tolerated. Please watch for new or worsening symptoms and return to the ER for any concerns. Using the list provided, please reach out to the dental providers and follow-up at next available appointment. Medical Decision Making 59-year-old gentleman presents with dental fracture for 1 month, pain over the past day and a half. Has tried gwtm-xko-vfghdro medication with some relief. Does not have a dentist. Clinically he appears well, nontoxic. He is afebrile. There is no pointing abscess that would require drainage. I feel as though conservative measures for pain control, adding on amoxicillin, and prompt outpatient dental follow-up is prudent. I will provide a prescription and a dental list. Patient has no additional questions or concerns and is comfortable with this plan. Medical Records Medical records reviewed: Yes I reviewed the patient's medical records. HPI General Mode of arrival: ambulatory . Date/Time Provider Initiated Documentation: 12/11/19 13:46 . Limitations to Documentation: no limitations . Information obtained by: patient . HPI Narrative: This is a 59-year-old gentleman, current smoker, history of hypertension, COPD, presents to the ER complaining of dental pain. He states that he fractured his tooth nearly 1 month ago but pain began over the past 24-36 hours. He denies fever, facial swelling, difficulty swallowing, sore throat, neck pain. He has taken qzpj-rjn-zzclddz medication with mild relief. Unfortunately he does not have a dentist who came to the ER. Related Data Home Medications Medication Instructions Recorded Confirmed amlodipine 5 mg PO DAILY #30 tab 07/25/18 12/11/19 chlorthalidone 25 mg PO DAILY #30 tab 07/25/18 12/11/19 omeprazole 40 mg PO DAILY #14 cap 07/25/18 12/11/19 Anoro Ellipta 1 inh INHALATION DAILY 12/11/19 12/11/19 amoxicillin 875 mg PO BID 10 Days #20 tab 12/11/19 venlafaxine 75 mg PO DAILY 12/11/19 12/11/19 Previous Rx's Medication Instructions Recorded amlodipine 5 mg PO DAILY #30 tab 07/25/18 chlorthalidone 25 mg PO DAILY #30 tab 07/25/18 omeprazole 40 mg PO DAILY #14 cap 07/25/18 amoxicillin 875 mg PO BID 10 Days #20 tab 12/11/19 Allergies Allergy/AdvReac Type Severity Reaction Status Date / Time nut - unspecified Allergy Severe Anaphylaxsi Unverified 12/11/19 13:41 s latex Allergy Unverified 12/11/19 13:41 General Stated Complaint: DentalOral LILI: 5 Review of Systems Constitutional Constitutional: Denies fever(s) and Denies headache(s) ENT Ears, Nose, Mouth, and Throat: Denies otalgia, Denies headache(s), Denies nose pain and Denies sore throat Cardiovascular Cardiovascular: Denies chest pain and Denies dyspnea Respiratory Respiratory: Denies dyspnea Integumentary/Breasts Skin/Breast: Denies rash Neurologic Neurologic: Denies headache(s) [facility] Social History Smoking/Tobacco Use Status: Current every day Tobacco Type: cigarettes Smoking risk assessment performed?: Yes Alcohol Intake: current Alcohol Intake frequency: holidays/special occasions only Substance use type: does not use Do you feel safe at home: Yes Do you feel safe in your relationship?: Yes Exam Const General: cooperative, healthy appearing, comfortable and no acute distress Orientation: alert and awake [facility] Head: normal to inspection, normocephalic and atraumatic Ears: external ears normal, TM's normal bilaterally and EAC's normal General nose exam: external nose normal Face and sinus: normal facial exam Mouth: moist mucous membranes Teeth and gingiva: poor dentition Teeth image: 1. This tooth is fractured-decayed to the gumline. There is local mild erythema without pointing abscess or drainage. Poor dentition throughout Throat: posterior oropharynx normal Eyes Conjunctivae: conjunctivae normal Sclera: sclerae normal Neck Neck: normal visual inspection, full ROM, no lymphadenopathy, trachea midline, supple and nontender Resp Effort & Inspection: normal respiratory effort and able to speak in complete sentences Cardio Rate: regular rate Rhythm: regular rhythm Skin General skin exam: no rashes or lesions noted Neuro General: patient alert, patient awake, moves all extremities and no focal motor deficits Cognition: normal cognition Speech: speech normal Gait: normal gait Sensory Exam: no sensory deficits noted Psych Appearance: grossly normal Mental Status: mental status grossly normal Course Vital Signs Vital signs: Vital Signs Temperature 36.3 C L 12/11/19 13:38 Pulse 89 12/11/19 13:38 Respiratory Rate 18 12/11/19 13:38 Blood Pressure 144/89 H 12/11/19 13:38 Pulse Oximetry 98 12/11/19 13:38 Temperature 36.3 C L 12/11/19 13:38 Temperature Source Temporal Artery Scan 12/11/19 13:38 Pulse 89 12/11/19 13:38 Respiratory Rate 18 12/11/19 13:38 Respiratory Effort 12/11/19 13:40 Blood Pressure 144/89 H 12/11/19 13:38 Blood Pressure Position Sitting 12/11/19 13:38 Pulse Oximetry 98 12/11/19 13:38 Oxygen Delivery Method Room Air 12/11/19 13:38 Oxygen Flow Rate 0 12/11/19 13:38 Pain Level 10 12/11/19 13:40
== END 2019-12-11 14:05 | disposition home or self-care (01) ==
PROVIDERS: Emergency Provider Physician Assistant; PCP Internal Medicine
DX: K08.89 Other specified disorders of teeth and supporting structures (principal); K04.7 Periapical abscess without sinus; I10 Essential (primary) hypertension; J44.9 Chronic obstructive pulmonary disease, unspecified; F17.210 Nicotine dependence, cigarettes, uncomplicated
CPT/HCPCS: 99283

== ENCOUNTER 2021-03-03 00:54 | Inpatient (IN) | payer OTHER, SELFPAY ==
[2021-03-03] VITALS (11 sets, daily range): BP systolic 107–157; BP diastolic 67–98; PULSE 68–88; RESP 16–22; TEMP 36.3–38.3; O2SAT 90–96
--- NOTE | 2021-03-03 01:15 | RT.EKG_ITS ---
APPROVED REPORT Exam: Resting ECG Reason for Exam: cp Patient Location: E HR:82 bpm ECG Measurements Heart Rate 82 AXIS MD 161 P 44 QRSd 95 QRS 42 QT 351 T 37 QTc 410 Conclusion Sinus rhythm...normal P axis, V-rate 60- 99 Low voltage, extremity leads...all extremity leads <0.5mV ST elevation, consider inferior injury...ST >0.08mV, II III aVF Significant artifact in limb leads needs repeat.
--- NOTE | 2021-03-03 01:15 | DI.CT_ITS ---
Exam(s) CT CHEST/ABD/PEL W EXAM: CT CHEST/ABD/PEL W CLINICAL HISTORY: cough, chest pain, abdominal pain, diarrhea. TECHNIQUE: Imaging Protocol: Axial computed tomography images with coronal and sagittal reformatted images were created and reviewed CONTRAST MATERIAL: Intravenous: Omnipaque 350 Contrast volume:100 ml Oral: no COMPARISON: CT CT CHEST PE CTA from 08/08/2018 FINDINGS: CHEST: Tracheobronchial tree: Patent where visualized. Mediastinum and Deirdre: No dominant adenopathy or fluid collection. Pulmonary parenchyma: Paraseptal and centrilobular emphysema, greatest at the upper lobes.. Patchy i nfiltrates in the left upper lobe and lingula as well as a small portion of the anterior left lower l obe. No consolidation or dominant measurable mass. Pleura: No effusion or pneumothorax. Lymph nodes: Within normal limits. Aorta: Thoracic portion non-dilated. Heart: Normal size. Mild coronary artery calcifications. Bones: Unremarkable for age. No lytic or blastic lesions. ABDOMEN: Liver: Normal density. No measurable mass. Gallbladder and biliary tract: No radiodense calculus or dilation. Pancreas: Normal density, no abnormal calcifications or inflammatory process. Spleen: Normal. Kidneys: Normal size, contour and axis. No radiodense stones or obstructive uropathy. No masses seen. Adrenal glands: No masses seen. Aorta: Abdominal portion non-dilated. Lymph nodes: Within normal limits. Soft tissues: Unremarkable. PELVIS: Bladder: Symmetric distention, no gross wall thickening. Bowel: No obstruction or bowel wall thickening. Appendix normal. Peritoneal cavity: No ascites, collection or mesenteric inflammatory response. Bones: Unremarkable for age.. Reproductive organs: Within normal limits. IMPRESSION: Patchy left-sided pulmonary infiltrates. No acute abnormality in the abdomen or pelvis. RADIATION DOSE DELIVERED: 1,123.74mGy.cm Total DLP DATA REPOSITORY: All CT scans at this facility are submitted to the National Radiology Data Registry (NRDR) Dose Index Registry (DIR) with the [employer] (ACR). RADIATION OPTIMIZATION: All CT scans at this facility use at least one of these dose optimization te chniques: automated exposure control; mA and/or kV adjustment per patient size (includes targeted exa ms where dose is matched to clinical indication); or iterative reconstruction.
--- NOTE | 2021-03-03 01:31 | ED.GENADUL_ITS ---
Discharge Plan Disposition Patient Disposition: [facility] INPAT[facility] Condition: Fair Discharge Details Clinical Impression: Viral illness, Elevated troponin Primary Care Provider: Jay Ochoa ED Provider: Camacho Brown [place] Meds and New Rx's Prescriptions: No Action chlorthalidone 25 mg Tablet 25 mg PO DAILY Qty: 30 RF: 0 amlodipine 5 mg Tablet 5 mg PO DAILY Qty: 30 RF: 0 omeprazole 40 mg capsule,delayed release(DR/EC) 40 mg PO DAILY Qty: 14 RF: 0 venlafaxine 75 mg capsule,extended release 24hr 75 mg PO DAILY RF: 0 Anoro Ellipta 62.5-25 mcg/actuation blister with device 1 inh INHALATION DAILY RF: 0 Medical Decision Making Patient presents to ED with both URI type symptoms as well as GI symptoms ongoing for at least a couple of weeks at this point. Has had chest pain but none currently. Has worsening abdominal pain. Has tested negative for COVID twice. Does not appear acutely ill and has benign abdomen. He is not tachycardic and not febrile. IV established and labs sent. Fluids and Phen ergan given. CT scan of the chest abdomen pelvis ordered. EKG obtained. Initial EKG was significant baseline artifact in the limb leads. Repeat EKG shows no STEMI or evidence of ischemic changes. Laboratory studies significant for troponin of 295. Doubt ischemia. More likely myocarditis/pericarditis given viral symptoms. White count is slightly low at 4. He has some mild anemia with a hemoglobin of 11.9. Chemistries are unremarkable except for magnesium being 1.5. Urinalysis negative for infection. CT pending. CT scan unremarkable. Evidence of emphysematous changes nonspecific left lower lobe infiltrate not described as consolidation no pneumonia. Magnesium has been replaced. Sed rate and C-reactive protein are not significantly elevated. COVID pending. Case discussed with hospitalist who agrees to observation admission for trending of enzymes and echo to evaluate for presumptive viral myocarditis in association with his viral syndrome and elevated troponin. Lab Data Lab results reviewed: Yes I reviewed the patient's lab results. ECG Data Attestation: I personally reviewed and interpreted this ECG (s) as follows: Prior ECG tracings: available for review HPI General Mode of arrival: ambulatory . Date/Time Provider Initiated Documentation: 03/03/21 00:57 . Limitations to Documentation: no limitations . Information obtained by: patient, RN notes reviewed and old records reviewed . HPI Narrative: Patient presents to ED with complaint of nausea, diffuse abdominal pain, diarrhea whenever he tries to eat anything. He has also had URI type symptoms, cough, chest pain. Currently has no chest pain or shortness of breath. Abdominal pain has been getting worse. There has been no vomiting. He has no hematochezia. Symptoms have been ongoing for 2 to 3 weeks. He was tested for COVID twice and has been negative. 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 He denies having a fever at any time. Related Data Home Medications Medication Instructions Recorded Confirmed amlodipine 5 mg PO DAILY #30 tab 07/25/18 12/11/19 chlorthalidone 25 mg PO DAILY #30 tab 07/25/18 12/11/19 omeprazole 40 mg PO DAILY #14 cap 07/25/18 12/11/19 Anoro Ellipta 1 inh INHALATION DAILY 12/11/19 12/11/19 venlafaxine 75 mg PO DAILY 12/11/19 12/11/19 Previous Rx's Medication Instructions Recorded amlodipine 5 mg PO DAILY #30 tab 07/25/18 chlorthalidone 25 mg PO DAILY #30 tab 07/25/18 omeprazole 40 mg PO DAILY #14 cap 07/25/18 Allergies Allergy/AdvReac Type Severity Reaction Status Date / Time nut - unspecified Allergy Severe Anaphylaxsi Unverified 12/11/19 13:41 s latex Allergy Unverified 12/11/19 13:41 General Stated Complaint: Abd Prob LILI: 3 Review of Systems Narrative: 11/24 Review of Systems completed and is negative except as stated above in HPI (Systems reviewed: Const, Eyes, ENT, Resp, CV, GI, , MSK, Skin, Neuro) PFSH All Active Problems (Updated 03/03/21 @ 03:46 by Camacho Brown MD) Viral illness (Acute) Elevated troponin (Acute) DVT prophylaxis (Acute) Headache (Acute) Tobacco abuse (Acute) Medical History HTN (hypertension) Restrictive airway disease Surgical History No significant past surgical history Social History Smoking/Tobacco Use Status: Current every day Tobacco Type: cigarettes Smoking risk assessment performed?: Yes Alcohol Intake: current Alcohol Intake frequency: holidays/special occasions only Substance use type: does not use Do you feel safe at home: Yes Do you feel safe in your relationship?: Yes Exam Narrative Exam Narrative: Const: WDWN male in NAD. HEENT: NC/AT. Normal facial exam. Eyes: Normal conjunctiva and sclera. Neck: Supple. Trachea midline. Lungs: Normal respiratory effort. Lungs with some scattered wheezes Cor: RRR without murmur/gallop. Good radial pulses. GI: Soft. NT/ND. No guarding or rebound. Neuro: A+O x 3. Normal speech, mentation, gait. Cranial nerves II - XII grossly intact. No gross motor or sensory deficit. Ext: No C/C/E. Skin: Warm and dry without rash. Course Vital Signs Vital signs: Vital Signs Temperature 97.3 F L 03/03/21 01:20 Pulse 88 03/03/21 01:20 Respiratory Rate 18 03/03/21 01:20 Blood Pressure 157/76 H 03/03/21 01:20 Pulse Oximetry 96 03/03/21 01:20 Temperature 97.3 F L 03/03/21 01:20 Temperature Source Temporal Artery Scan 03/03/21 01:20 Pulse 88 03/03/21 01:20 Respiratory Rate 18 03/03/21 01:20 Respiratory Effort 03/03/21 01:23 Blood Pressure 157/76 H 03/03/21 01:20 Blood Pressure Position Sitting 03/03/21 01:20 Pulse Oximetry 96 03/03/21 01:20
[2021-03-03] MEDS: Lactated Ringers 1,000 ML 200 ML IV (01:36)
[2021-03-03 01:44] LABS: Abs Immature Grans 0.02 10^3/uL (0.0-0.06); Absolute Basophil Count 0.01 10^3/uL (0.0-0.2); Absolute Eosinophil Count 0.19 10^3/uL (0.0-0.7); Absolute Lymphocyte Count 0.86 10^3/uL (1.2-3.4); Absolute Monocyte Count 0.22 10^3/uL (0.1-0.8); Absolute Neutrophil Count 2.73 10^3/uL (1.2-6.7); Basophils % 0.2; Eosinophils % 4.7; HCT 38.3 % (40.0-50.0); HGB 11.9 g/dL (13.5-17.5); Immature Grans % 0.5; Lymphocytes % 21.3; MCH 26.4 pg (27.0-33.0); MCHC 31.1 % (32.0-36.0); MCV 85.1 fL (80-95); Monocytes % 5.5; Neutrophils % 67.8; Nucleated RBC 0 %; Platelet Count 161 10^3/uL (130-400); RDW 15.5 % (11.8-14.1); RDW-SD 47.8 fL; WBC 4.03 10^3/uL (4.4-10.8)
[2021-03-03 01:47] LABS: Bilirubin Negative (Negative); Blood Moderate (Negative); Clarity Clear (Clear); Glucose Negative (Negative); Ketones Negative (Negative); Leukocyte Esterase Negative (Negative); Nitrite Negative (Negative); Specific Gravity >= 1.030 (1.005-1.025); Urobilinogen 0.2 EU/dL (Up TO 0.2); pH 6.5 (5-8)
[2021-03-03 01:49] LABS: Bacteria Rare HPF (Negative); C & S Indicated? No; Casts Negative LPF (Negative); Crystals Negative HPF (Negative); Epithelial Cells Few HPF (Negative); Mucus Negative (Negative); WBC Negative HPF (0-5)
[2021-03-03 01:58] LABS: ALT 30 U/L (16-63); AST 49 U/L (15-37); Albumin 3.4 g/dL (3.4-5.0); Alkaline Phosphatase 116 U/L (46-116); Anion Gap 11.8 mmol/L (3-11); BUN 14 mg/dL (7-18); Bilirubin, Total 0.4 mg/dL (0.2-1.0); CO2 24.2 mmol/L (21.0-32.0); CREATININE 1.2 mg/dL (0.70-1.30); Calcium 8.8 mg/dL (8.5-10.1); Chloride 103 mmol/L (98-107); Glucose 109 mg/dL (74-106); Potassium 3.8 mmol/L (3.5-5.1); Sodium 139 mmol/L (136-145); Total Protein 8.3 g/dL (6.4-8.2)
[2021-03-03 02:05] LABS: Lipase 160 U/L (73-393); Magnesium 1.5 mg/dL (1.8-2.4)
[2021-03-03 02:06] LABS: Troponin I 295 ng/L (<or=60)
[2021-03-03] MEDS: Omnipaque 350 MG/ML 100 ML BTL IV (02:11)
--- NOTE | 2021-03-03 02:15 | RT.EKG_ITS ---
APPROVED REPORT Exam: Resting ECG Reason for Exam: cp Patient Location: E HR:95 bpm ECG Measurements Heart Rate 95 AXIS WV 197 P 71 QRSd 99 QRS 42 QT 332 T 32 QTc 418 Conclusion Sinus rhythm...normal P axis, V-rate 60- 99 Borderline prolonged WV interval...WV >197, V-rate 91-120 Inferior infarct, old...Q >35mS, II III aVF I have reviewed and interpreted ECG and agree with software generated interpretation. No STEMI
[2021-03-03] MEDS: MAGNESIUM SULFATE 2 GM/50 ML BAG IVPB (03:00)
--- NOTE | 2021-03-03 03:27 | DI.VRAD_ITS ---
PROCEDURE INFORMATION: Exam: CT Chest With Contrast; Diagnostic Exam date and time: 03/03/2021 1:28 AM Age: 61 years old Clinical indication: Other: Cough, cp, abd pain, diarrhea TECHNIQUE: Imaging protocol: Diagnostic computed tomography of the chest with contrast. 3D rendering (Not supervised by radiologist): MIP and/or 3D reconstructed images were created by the technologist. Radiation optimization: All CT scans at this facility use at least one of these dose optimization techniques: automated exposure control; mA and/or kV adjustment per patient size (includes targeted exams where dose is matched to clinical indication); or iterative reconstruction. Contrast material: OMNIPAQUE 350; Contrast volume: 100 ml; Contrast route: INTRAVENOUS (IV); COMPARISON: CT CHEST PE CTA 08/08/2018 1:11 PM FINDINGS: Lungs: Nonspecific minimal left lung infiltrate. Pulmonary emphysema. Pleural spaces: Unremarkable. No pneumothorax. No pleural effusion. Heart: Unremarkable. No cardiomegaly. No pericardial effusion. Aorta: Unremarkable. No aortic aneurysm. Lymph nodes: Unremarkable. No enlarged lymph nodes. Bones/joints: Unremarkable. No acute fracture. Soft tissues: Unremarkable. IMPRESSION: Nonspecific minimal left lung infiltrate. PROCEDURE INFORMATION: Exam: CT Abdomen And Pelvis With Contrast Exam date and time: 03/03/2021 1:28 AM Age: 61 years old Clinical indication: Other: Cough, cp, abd pain, diarrhea TECHNIQUE: Imaging protocol: Computed tomography of the abdomen and pelvis with contrast. 3D rendering (Not supervised by radiologist): MIP and/or 3D reconstructed images were created by the technologist. Radiation optimization: All CT scans at this facility use at least one of these dose optimization techniques: automated exposure control; mA and/or kV adjustment per patient size (includes targeted exams where dose is matched to clinical indication); or iterative reconstruction. Contrast material: OMNIPAQUE 350; Contrast volume: 100 ml; Contrast route: INTRAVENOUS (IV); COMPARISON: CT CHEST PE CTA 08/08/2018 1:11 PM FINDINGS: Liver: Normal. No mass. Gallbladder and bile ducts: Normal. No calcified stones. No ductal dilation. Pancreas: Normal. No ductal dilation. Spleen: Normal. No splenomegaly. Adrenal glands: Normal. No mass. Kidneys and ureters: Normal. No hydronephrosis. Stomach and bowel: Unremarkable. No obstruction. No mucosal thickening. Appendix: No evidence of appendicitis. Intraperitoneal space: Unremarkable. No free air. No significant fluid collection. Vasculature: Unremarkable. No abdominal aortic aneurysm. Lymph nodes: Unremarkable. No enlarged lymph nodes. Urinary bladder: Unremarkable as visualized. Reproductive: Unremarkable as visualized. Bones/joints: Unremarkable. No acute fracture. Soft tissues: Unremarkable. IMPRESSION: No acute findings. Dictated and Authenticated by: Guzman Alonso MD. Ordering:NENA Sauer MD
[2021-03-03 03:35] LABS: ESR 18 mm/hr (0-20)
[2021-03-03 03:41] LABS: C-Reactive Protein 1.08 mg/dL (0.0-0.3)
[2021-03-03 04:13] LABS: Source Nasal/Nares
[2021-03-03 04:55] LABS: COVID-19 PCR POSITIVE (Negative)
[2021-03-03 06:56] LABS: Troponin I 270 ng/L (<or=60)
[2021-03-03 07:39] LABS: Lab Add On Test DONE
--- NOTE | 2021-03-03 07:50 | HPE_ITS ---
Date of service: 03/03/21 Time of Service: 07:50 Assessment and Plan Assessment and plan (1) Elevated troponin: Status: Acute Assessment and plan: He is not having chest pain. His electrocardiogram shows no acute changes. His elevated troponins are mild and I suspect he has myocarditis from his COVID infection. (2) Diarrhea: Status: Acute Assessment and plan: Etiology of his diarrhea could be coronavirus related but will check stool samples for other causes. He has not been on recent a ntibiotics. (3) COVID: Status: Acute Assessment and plan: He did receive the coronavirus vaccine but has not received it recently. We will consider remdesivir for his current infection. He is out of the therapeutic window for monoclonal antibody. (4) COPD (chronic obstructive pulmonary disease): Assessment and plan: We will continue his albuterol and other inhalers for his COPD maintenance. He is using a nicotine patch at present time and will continue this while he was hospitalized. History of Present Illness History of Present Illness Chief Complaint: diarrhea, abd pain, dyspnea Narrative: This 61-year-old male who is here because of an illness for 1 month. He lives with his sister who developed coronavirus infection but he says he was sick before she was sick. He did receive a dose of [employer] COVID- vaccine but did not receive a booster. He says that he was trying to get by without a booster. He did 2 home tests 3 to 4 weeks ago but they were negative. He has had persistent shortness of breath and cough and has developed abdominal pain and diarrhea. He says diarrhea occurs after each meal. He has not missed any work except today. He came to the emergency department last night because of the symptoms. Review of Systems Constitutional Constitutional: Reports chills, Reports fever(s) and Reports malaise Cardiovascular Cardiovascular: Denies chest pain, Denies rapid heart rate, Denies irregular heart rhythm, Reports dyspnea and Reports dyspnea on exertion Respiratory Respiratory: Reports cough, Denies hemoptysis, Reports dyspnea and Reports dyspnea on exertion Gastrointestinal Gastrointestinal: Reports abdominal pain, Denies heartburn, Reports diarrhea, Reports loose stools, Denies vomiting and Denies hematemesis Genitourinary Genitourinary: Denies oliguria, Denies urinary incontinence and Denies urinary urgency PFSH All Active Problems (Updated 03/03/21 @ 08:25 by Roni Crandall MD) COVID (Acute) Diarrhea (Acute) Viral illness (Acute) Elevated troponin (Acute) DVT prophylaxis (Acute) Headache (Acute) Tobacco abuse (Acute) Medical History (Updated 03/03/21 @ 08:25 by Roni Crandall MD) COPD (chronic obstructive pulmonary disease) HTN (hypertension) Restrictive airway disease Surgical History No significant past surgical history Social History Smoking/Tobacco Use Status: Current every day Tobacco Type: cigarettes Smoking risk assessment performed?: Yes Alcohol Intake: current Alcohol Intake frequency: holidays/special occasions only Substance use type: does not use Do you feel safe at home: Yes Do you feel safe in your relationship?: Yes Meds Allergies and Home Medications Allergies Allergy/AdvReac Type Severity Reaction Status Date / Time nut - unspecified Allergy Severe Anaphylaxsi Unverified 03/03/21 04:05 s latex Allergy Unverified 03/03/21 04:05 Home Medications Medication Instructions Recorded Confirmed Type amlodipine 5 mg PO DAILY #30 tab 07/25/18 03/03/21 Rx chlorthalidone 25 mg PO DAILY #30 tab 07/25/18 12/11/19 Rx omeprazole 40 mg PO DAILY #14 cap 07/25/18 12/11/19 Rx Anoro Ellipta 1 inh INHALATION DAILY 12/11/19 03/03/21 History venlafaxine 75 mg PO DAILY 12/11/19 12/11/19 History albuterol sulfate 90 mcg INHALATION PRN PRN 03/03/21 03/03/21 History Exam Const General: cooperative, comfortable and no acute distress Nutritional Appearance: well nourished Orientation: alert, awake and oriented x3 HENMT Head: normal to inspection Neck Neck: normal visual inspection and no lymphadenopathy Thyroid: thyroid normal Resp Effort & Inspection: normal respiratory effort and able to speak in complete sentences Auscultation: no rales, no rhonchi and no wheezes Cardio Jugular venous pressure: no JVD Rate: regular rate Rhythm: regular rhythm Heart Sounds: S1 normal, S2 normal, no gallops and no murmurs GI Inspection: normal to inspection Palpation: soft, no hepatosplenomegaly and nontender Skin General skin exam: no rashes or lesions noted Neuro Cranial Nerves: CN's II-XI intact bilaterally Cognition: normal cognition Speech: speech normal Extrem General: normal to inspection, no pedal edema and no calf tenderness Results Labs Result diagrams: 03/03/21 01:03/03/21 01:29 Labs: Laboratory Results - last 24 hr 03/03/21 03/03/21 03/03/21 00:29 01:29 01:29 WBC RBC Hgb Hct MCV MCH MCHC RDW Plt Count MPV Immature Gran % Neutrophils % Lymphocytes % Monocytes % Eosinophils % Basophils % Nucleated RBC % Absolute Neutrophils Absolute Lymphocytes Absolute Monocytes Absolute Eosinophils Absolute Basophils ESR VBG Lactate 1.0 Sodium Potassium Chloride Carbon Dioxide Anion Gap BUN Creatinine Estimated GFR/1.73 m2 Glucose Calcium Magnesium 1.5 L Total Bilirubin AST ALT Alkaline Phosphatase Troponin I 295 H* C-Reactive Protein Total Protein Albumin Lipase 160 Urine Color Yellow Urine Clarity Clear Urine pH 6.5 Ur Specific [place] >= 1.030 H Urine Protein 100 H Urine Ketones Negative Urine Blood Moderate H Urine Nitrite Negative Urine Bilirubin Negative Urine Urobilinogen 0.2 Ur Leukocyte Esterase Negative Urine RBC 5-10 H Urine WBC Negative Ur Epithelial Cells Few Urine Crystals Negative Urine Bacteria Rare Urine Casts Negative Urine Mucus Negative Ur Culture Indicated? No Urine Glucose Negative COVID-19 Source SARS-CoV-2 (PCR) 03/03/21 03/03/21 03/03/21 01:29 01:29 01:29 WBC 4.03 L RBC 4.50 Hgb 11.9 L Hct 38.3 L MCV 85.1 MCH 26.4 L MCHC 31.1 L RDW 15.5 H Plt Count 161 MPV 11.0 Immature Gran % 0.5 Neutrophils % 67.8 Lymphocytes % 21.3 Monocytes % 5.5 Eosinophils % 4.7 Basophils % 0.2 Nucleated RBC % 0 Absolute Neutrophils 2.73 Absolute Lymphocytes 0.86 L Absolute Monocytes 0.22 Absolute Eosinophils 0.19 Absolute Basophils 0.01 ESR 18 VBG Lactate Sodium 139 Potassium 3.8 Chloride 103 Carbon Dioxide 24.2 Anion Gap 11.8 H BUN 14 Creatinine 1.2 Estimated GFR/1.73 m2 >= 60.00 Glucose 109 H Calcium 8.8 Magnesium Total Bilirubin 0.4 AST 49 H ALT 30 Alkaline Phosphatase 116 Troponin I C-Reactive Protein Total Protein 8.3 H Albumin 3.4 Lipase Urine Color Urine Clarity Urine pH Ur Specific [place] Urine Protein Urine Ketones Urine Blood Urine Nitrite Urine Bilirubin Urine Urobilinogen Ur Leukocyte Esterase Urine RBC Urine WBC Ur Epithelial Cells Urine Crystals Urine Bacteria Urine Casts Urine Mucus Ur Culture Indicated? Urine Glucose COVID-19 Source SARS-CoV-2 (PCR) 03/03/21 03/03/21 03/03/21 01:29 02:26 06:15 WBC RBC Hgb Hct MCV MCH MCHC RDW Plt Count MPV Immature Gran % Neutrophils % Lymphocytes % Monocytes % Eosinophils % Basophils % Nucleated RBC % Absolute Neutrophils Absolute Lymphocytes Absolute Monocytes Absolute Eosinophils Absolute Basophils ESR VBG Lactate Sodium Potassium Chloride Carbon Dioxide Anion Gap BUN Creatinine Estimated GFR/1.73 m2 Glucose Calcium Magnesium Total Bilirubin AST ALT Alkaline Phosphatase Troponin I 270 H* C-Reactive Protein 1.08 H Total Protein Albumin Lipase Urine Color Urine Clarity Urine pH Ur Specific [place] Urine Protein Urine Ketones Urine Blood Urine Nitrite Urine Bilirubin Urine Urobilinogen Ur Leukocyte Esterase Urine RBC Urine WBC Ur Epithelial Cells Urine Crystals Urine Bacteria Urine Casts Urine Mucus Ur Culture Indicated? Urine Glucose COVID-19 Source Nasal/Nares SARS-CoV-2 (PCR) POSITIVE A* Last Vital Signs Temp 38.3 C H 03/03/21 04:47 Pulse 81 03/03/21 04:47 Resp 22 03/03/21 04:47 BP 140/98 H 03/03/21 04:47 Pulse Ox 95 03/03/21 04:47
[2021-03-03 08:01] LABS: Abs Immature Grans 0.02 10^3/uL (0.0-0.06); Absolute Basophil Count 0.02 10^3/uL (0.0-0.2); Absolute Eosinophil Count 0.13 10^3/uL (0.0-0.7); Absolute Lymphocyte Count 0.73 10^3/uL (1.2-3.4); Absolute Monocyte Count 0.24 10^3/uL (0.1-0.8); Absolute Neutrophil Count 2.71 10^3/uL (1.2-6.7); Basophils % 0.5; Eosinophils % 3.4; HCT 37.6 % (40.0-50.0); HGB 11.7 g/dL (13.5-17.5); Immature Grans % 0.5; MCH 26.7 pg (27.0-33.0); MCHC 31.1 % (32.0-36.0); MCV 85.8 fL (80-95); MPV 11.3 fL (8.0-11.0); Monocytes % 6.2; Neutrophils % 70.4; Nucleated RBC 0 %; Platelet Count 153 10^3/uL (130-400); RBC 4.38 10^6/uL (4.36-5.78); RDW 15.5 % (11.8-14.1); WBC 3.85 10^3/uL (4.4-10.8)
[2021-03-03 08:13] LABS: Procalcitonin 0.1 ng/mL
--- NOTE | 2021-03-03 08:52 | INITIAL_ITS ---
- If Service Date Differs Date of service: 03/03/21 Time of Service: 08:52 Care Management Initial Assess REASON FOR HOSPITALIZATION:: Elevated troponin, Diarrhea, Covid, COPD PAST MEDICAL HISTORY/PAST SURGICAL HISTORY:: All Active Problems (Updated 03/03/21 @ 08:25 by Roni Crandall MD). COVID (Acute). Diarrhea (Acute). Viral illness (Acute). Elevated troponin (Acute). DVT prophylaxis (Acute). Headache (Acute). Tobacco abuse (Acute). Medical History (Updated 03/03/21 @ 08:25 by Roni Crandall MD). COPD (chronic obstructive pulmonary disease). HTN (hypertension). Restrictive airway disease. Surgical History . No significant past surgical history PREVIOUS FUNCTIONAL STATUS/SOCIAL/FAMILY SUPPORTS:: Orlin lives in [facility]. He is employed at [employer]. He is independent at baseline. CURRENT FUNCTIONAL STATUS:: CM spoke with Orlin via phone due to covid precautions. Orlin continues to have a non productive cough and sob, worse with exertion. He is currently 94% on 1L NC. He has diarrhea, stool sample is pending. Orlin has no questions or needs at this time. CM will continue to monitor discharge planning needs. ADVANCE DIRECTIVES:: None on file, CM will offer. Has patient been provided with info about the portal/API?: Yes Did the patient sign up for the portal?: No CODE STATUS:: Full Code INSURANCE COVERAGE / FINANCIAL ISSUES:: CBA. [employer] CURRENT HOME/COMMUNITY SERVICES/EQUIPMENT:: None PRIMARY CARE PHYSICIAN:: Jay Ochoa POTENTIAL DISCHARGE NEEDS:: Note for work. PATIENT/FAMILY EDUCATION NEEDS:: Review discharge instructions, limitations and plan to follow up with community providers. ask me three. TRANSPORTATION:: Via private vehicle located in the parking lot. PLAN:: Anticipate Orlin will discharge home with no new [facility] services when medically cleared by provider. He will transport via private vehicle and follow up with his community providers.
[2021-03-03 08:57] LABS: D-Dimer 1051 ng/mlFEU (<500)
[2021-03-03] MEDS: Nicotine 14 MG/24 HR PATCH TD (09:14)
[2021-03-03] MEDS: amLODIPine 5 MG TAB PO (09:15)
[2021-03-03] MEDS: Acetaminophen 500 MG TAB PO (09:15)
[2021-03-03 09:21] LABS: Magnesium 1.8 mg/dL (1.8-2.4)
[2021-03-03 09:26] LABS: Ferritin 1306 ng/mL (26-388)
[2021-03-03] MEDS: Famotidine 20 MG TAB PO ×2 (09:56→19:58)
--- NOTE | 2021-03-03 12:34 | PHACLINREV_ITS ---
Pharmacy Admission Review - Admission Clinical Review (Last Updated 03/03/21 @ 08:25 by Roni Crandall MD) COVID (Acute) Diarrhea (Acute) Viral illness (Acute) Elevated troponin (Acute) nut - unspecified Allergy (Severe, Unverified 03/03/21 04:05) Anaphylaxsis latex Allergy (Unverified 03/03/21 04:05) Resuscitation Status Full Code Height 5 ft 11 in Weight 97.1 kg - Renal Dosing Renal Dosing: BUN 14 mg/dL (7-18) 03/03/21 01:29 Creatinine 1.2 mg/dL (0.70-1.30) 03/03/21 01:29 Medications needing adjustments: Reviewed (Crcl ~70 mL/min, current meds okay) - Anticoagulation Anticoagulation: Hgb 11.7 g/dL (13.5-17.5) L 03/03/21 06:15 Hct 37.6 % (40.0-50.0) L 03/03/21 06:15 Plt Count 153 10^3/uL (130-400) 03/03/21 06:15 Creatinine 1.2 mg/dL (0.70-1.30) 03/03/21 01:29 DVT Prophylaxis: Intervened (None currently ordered, will check with provider about need.) Therapeutic Anticoagulation: N/A - Opiate Usage Evaluate Pain Scale/Pains Meds: N/A - Relevant Labs ESR 18 mm/hr (0-20) 03/03/21 01:29 Sodium 139 mmol/L (136-145) 03/03/21 01:29 Potassium 3.8 mmol/L (3.5-5.1) 03/03/21 01:29 Chloride 103 mmol/L (98-107) 03/03/21 01:29 Magnesium 1.8 mg/dL (1.8-2.4) 03/03/21 08:10 C-Reactive Protein 1.08 mg/dL (0.0-0.3) H 03/03/21 01:29 Electrolytes, C-Reactive P, ESR: Reviewed - DM Control DM Control: Glucose 109 mg/dL (74-106) H 03/03/21 01:29 Insulin Dosing: N/A (No DM noted in pt's medical history, no A1c on file.) - Heart Failure/NY Heart Failure/NY: Troponin I Cancelled 03/03/21 07:46 EF%, SAQIB's, B-Blockers, Diuretics: Reviewed - BP Control BP Control: Blood Pressure 107/67 Blood Pressure 135/90 Blood Pressure 140/98 Blood Pressure 152/72 Blood Pressure 155/74 Blood Pressure 157/76 If elevated: Reviewed (BP was elevated on admission but has been within normal limits the past few checks.) - Qtc Review If Elevated: N/A (QTc 418 on most recent EKG this admission) - IV to PO Switch IV Medications: Reviewed - Home Meds Home Med List reviewed: Intervened (Some home meds were on the med list in [employer] but were unconfirmed and not in the external med history. PCP's office was contacted and the home med list was updated.) Relevent Home Meds Not ordered & why?: yashira duckworth (has stiolto substituted for this) - Current meds Current Medication Order Review: Intervened (Discontinued DI med that had already been given.) - Comments Comments/Follow Ups: Watch BP, labs and for med changes.
[2021-03-03] MEDS: Tiotropium/Olodaterol 10 PUFF INHALER 2 PUFF IH (14:45)
[2021-03-03] MEDS: Indomethacin 25 MG CAP PO ×2 (14:46→19:58)
[2021-03-03 15:58] LABS: C Diff PCR Negative (Negative)
[2021-03-03] MEDS: Enoxaparin 40 MG/0.4 ML SYR SC (19:59)
[2021-03-04] VITALS (14 sets, daily range): BP systolic 120–160; BP diastolic 69–96; PULSE 63–73; RESP 17–30; TEMP 36.4–38.4; O2SAT 92–98
[2021-03-04] MEDS: Acetaminophen 500 MG TAB PO (04:49)
[2021-03-04 07:10] LABS: Abs Immature Grans 0.01 10^3/uL (0.0-0.06); Absolute Basophil Count 0.01 10^3/uL (0.0-0.2); Absolute Lymphocyte Count 0.36 10^3/uL (1.2-3.4); Absolute Monocyte Count 0.16 10^3/uL (0.1-0.8); Absolute Neutrophil Count 1.81 10^3/uL (1.2-6.7); Basophils % 0.4; Eosinophils % 7.8; HCT 34.9 % (40.0-50.0); Immature Grans % 0.4; Lymphocytes % 14.1; MCH 26.9 pg (27.0-33.0); MCHC 31.5 % (32.0-36.0); MCV 85.3 fL (80-95); MPV 10.9 fL (8.0-11.0); Monocytes % 6.3; Nucleated RBC 0 %; Platelet Count 144 10^3/uL (130-400); RBC 4.09 10^6/uL (4.36-5.78); RDW 15.5 % (11.8-14.1); RDW-SD 48.1 fL; WBC 2.55 10^3/uL (4.4-10.8)
[2021-03-04 07:23] LABS: Anion Gap 12.4 mmol/L (3-11); BUN 17 mg/dL (7-18); CO2 24.6 mmol/L (21.0-32.0); CREATININE 1.1 mg/dL (0.70-1.30); Calcium 8.3 mg/dL (8.5-10.1); Chloride 103 mmol/L (98-107); Glucose 103 mg/dL (74-106); Potassium 4.7 mmol/L (3.5-5.1); Sodium 140 mmol/L (136-145)
[2021-03-04] MEDS: Tiotropium/Olodaterol 10 PUFF INHALER 2 PUFF IH (07:51)
[2021-03-04] MEDS: Normal Saline Flush 10 ML SYR IVP ×2 (08:08→20:57)
[2021-03-04] MEDS: Nicotine 14 MG/24 HR PATCH TD (08:08)
[2021-03-04] MEDS: Indomethacin 25 MG CAP PO ×3 (08:09→20:56)
[2021-03-04] MEDS: Famotidine 20 MG TAB PO ×2 (08:09→20:56)
[2021-03-04] MEDS: amLODIPine 5 MG TAB PO (08:09)
[2021-03-04] MEDS: Normal Saline 500 ML 30 ML IV (10:42)
[2021-03-04] MEDS: REMDESIVIR 200 MG in Normal Saline 250 ML 250 MG IVPB (10:43)
[2021-03-04 11:14] LABS: Campylobacter PCR Negative (Negative); Salmonella PCR Negative (Negative); Shiga Toxin PCR Negative (Negative); Shigella/Enteroinvasive Ecoli Negative (Negative)
--- NOTE | 2021-03-04 11:14 | NUR.NOTE ---
Nursing Note: Discussed proning with the patient , He stated he has been proning while in bed at night
--- NOTE | 2021-03-04 11:15 | RT.EKG_ITS ---
APPROVED REPORT Exam: Resting ECG Reason for Exam: follow up elevated troponin Patient Location: I HR:71 bpm ECG Measurements Heart Rate 71 AXIS TX 155 P 20 QRSd 97 QRS 0 QT 411 T -5 QTc 447 Conclusion Sinus rhythm...normal P axis, V-rate 60- 99 Inferior infarct, recent...Q>35mS, ST>0.07mV, T neg, II-aVF
--- NOTE | 2021-03-04 11:21 | W.PM.PROGNOT ---
Date of Service Date of service: 03/04/21 Time of Service: : Assessment and Plan Assessment and plan (1) COVID: Status: Acute Assessment and plan: The patient was started on prophylactic remdesivir. It is likely that his diarrhea is due to COVID-19. Supplement vitamin C, D, zinc. Not requiring O2 at this time. (2) Elevated troponin: Status: Acute Assessment and plan: Repeat EKG. Troponins were downtrending yesterday. Agree that the most likely etiology is myocarditis due to COVID-19. Echo ordered for Saturday. Continue monitoring on tele. (3) Diarrhea: Status: Acute Assessment and plan: Diarrhea has improved/is resolving. Continue prn loperamide. Await stool studies. Agree it is most likely due to COVID-19 infection; the patient states, however, that this has been going on for weeks. (4) COPD (chronic obstructive pulmonary disease): Assessment and plan: Continue home medications. High risk for pulmonary involvement of COVID-19 - as above, start prophylactic remdesivir. (5) DVT prophylaxis: Status: Acute Assessment and plan: SC lovenox (6) Discharge planning issues: Status: Acute Assessment and plan: Full code Continues to require hospitalization. Subjective Subjective Interval history since last seen: No diarrhea today. Tolerating PO. Continues to feel weak, was febrile last night. C/o shortness of breath on ambulation. Has had a cough - nonproductive. Denies dizziness, nausea, abdominal pain. Exam Narrative Exam Narrative: General: Pleasant middle-aged male who appears tired, A&Ox3 HEENT: EOMI, MMM Heart: RRR, no m/r/g Lungs: when grunting on exhalation, there is audible wheezing in the lungs. However, when asked to stop grunting, the patient is no longer wheezing. CTAB Abdomen: soft, nontender, nondistended Extremities: no edema BLEs. Objective Last Vital Signs Temp 37.7 C H 03/04/21 08:06 Pulse 68 03/04/21 08:06 Resp 30 H 03/04/21 08:06 BP 141/95 H 03/04/21 08:06 Pulse Ox 92 03/04/21 10:34 Laboratory Results - last 24 hr 01/21/22 01/21/22 01/22/22 02:47 14:48 06:30 WBC RBC Hgb Hct MCV MCH MCHC RDW Plt Count MPV Immature Gran % Neutrophils % Lymphocytes % Monocytes % Eosinophils % Basophils % Nucleated RBC % Absolute Neutrophils Absolute Lymphocytes Absolute Monocytes Absolute Eosinophils Absolute Basophils Sodium 140 Potassium 4.7 D Chloride 103 Carbon Dioxide 24.6 Anion Gap 12.4 H BUN 17 Creatinine 1.1 Estimated GFR/1.73 m2 >= 60.00 Glucose 103 Calcium 8.3 L Stl C.difficile Tox PCR Negative Add-On Test Request DONE 03/04/21 06:30 WBC 2.55 L D RBC 4.09 L Hgb 11.0 L Hct 34.9 L MCV 85.3 MCH 26.9 L MCHC 31.5 L RDW 15.5 H Plt Count 144 MPV 10.9 Immature Gran % 0.4 Neutrophils % 71.0 Lymphocytes % 14.1 Monocytes % 6.3 Eosinophils % 7.8 Basophils % 0.4 Nucleated RBC % 0 Absolute Neutrophils 1.81 Absolute Lymphocytes 0.36 L Absolute Monocytes 0.16 Absolute Eosinophils 0.20 Absolute Basophils 0.01 Sodium Potassium Chloride Carbon Dioxide Anion Gap BUN Creatinine Estimated GFR/1.73 m2 Glucose Calcium Stl C.difficile Tox PCR Add-On Test Request
[2021-03-04] MEDS: Enoxaparin 40 MG/0.4 ML SYR SC (18:05)
[2021-03-04] MEDS: Ascorbic Acid 500 MG TAB 1000 MG PO (20:56)
[2021-03-05] VITALS (11 sets, daily range): BP systolic 115–148; BP diastolic 65–90; PULSE 59–69; RESP 16–22; TEMP 36.7–37.2; O2SAT 93–96
[2021-03-05 07:18] LABS: Abs Immature Grans 0.01 10^3/uL (0.0-0.06); Absolute Basophil Count 0.02 10^3/uL (0.0-0.2); Absolute Eosinophil Count 0.24 10^3/uL (0.0-0.7); Absolute Lymphocyte Count 0.53 10^3/uL (1.2-3.4); Absolute Monocyte Count 0.21 10^3/uL (0.1-0.8); Absolute Neutrophil Count 1.97 10^3/uL (1.2-6.7); Basophils % 0.7; Eosinophils % 8.1; HCT 35.8 % (40.0-50.0); HGB 11.1 g/dL (13.5-17.5); Immature Grans % 0.3; Lymphocytes % 17.8; MCH 26.6 pg (27.0-33.0); MCV 85.9 fL (80-95); MPV 10.3 fL (8.0-11.0); Neutrophils % 66.1; Nucleated RBC 0 %; Platelet Count 136 10^3/uL (130-400); RBC 4.17 10^6/uL (4.36-5.78); RDW 15.6 % (11.8-14.1); RDW-SD 49.1 fL; WBC 2.98 10^3/uL (4.4-10.8)
[2021-03-05 07:23] LABS: INR 1.1 (0.9-1.1)
[2021-03-05 07:33] LABS: ALT 29 U/L (16-63); AST 48 U/L (15-37); Alkaline Phosphatase 108 U/L (46-116); BUN 18 mg/dL (7-18); Bilirubin, Direct 0.1 mg/dL (0.0-0.2); Bilirubin, Total 0.4 mg/dL (0.2-1.0); CREATININE 1.1 mg/dL (0.70-1.30); Calcium 8.2 mg/dL (8.5-10.1); Chloride 104 mmol/L (98-107); Glucose 99 mg/dL (74-106); Magnesium 1.9 mg/dL (1.8-2.4); PHOSPHORUS 3.5 mg/dL (2.6-4.7); Potassium 4.6 mmol/L (3.5-5.1); Sodium 138 mmol/L (136-145); Total Protein 7.8 g/dL (6.4-8.2)
[2021-03-05 07:49] LABS: D-Dimer 965 ng/mlFEU (<500)
[2021-03-05 07:54] LABS: Procalcitonin 0.1 ng/mL
[2021-03-05] MEDS: Tiotropium/Olodaterol 10 PUFF INHALER 2 PUFF IH (08:00)
[2021-03-05] MEDS: Nicotine 14 MG/24 HR PATCH TD (08:15)
[2021-03-05 08:16] LABS: Ferritin 1280 ng/mL (26-388)
[2021-03-05] MEDS: Indomethacin 25 MG CAP PO ×3 (08:17→19:51)
[2021-03-05] MEDS: Cholecalciferol (Vitamin D3) 1,000 UNIT TAB 2000 UNITS PO (08:17)
[2021-03-05] MEDS: Zinc Sulfate 220 MG TAB PO (08:18)
[2021-03-05] MEDS: Famotidine 20 MG TAB PO ×2 (08:18→19:50)
[2021-03-05] MEDS: Ascorbic Acid 500 MG TAB 1000 MG PO ×2 (08:18→19:51)
[2021-03-05] MEDS: amLODIPine 5 MG TAB PO (08:18)
[2021-03-05] MEDS: REMDESIVIR 100 MG in Normal Saline 250 ML 250 MG IVPB (09:24)
[2021-03-05] MEDS: Normal Saline Flush 10 ML SYR IVP (09:24)
--- NOTE | 2021-03-05 13:22 | W.PM.PROGNOT ---
Date of Service Date of service: 03/05/21 Time of Service: 13:23 Assessment and Plan Assessment and plan (1) COVID: Status: Acute Assessment and plan: Continue prophylactic remdesivir (day 2/3). It is likely that his diarrhea was due to COVID-19. Supplement vitamin C, D, zinc. Not requiring O2 at this time. Encourage IS/acapella. Will check exercise oximetry prior to d/c tomorrow. (2) Elevated troponin: Status: Acute Assessment and plan: Agree that the most likely etiology is myocarditis due to COVID-19. Await Echo tomorrow. Continue monitoring on tele. (3) Diarrhea: Status: Resolved Assessment and plan: Due to COVID-19. Stool studies negative. Continue prn loperamide. (4) COPD (chronic obstructive pulmonary disease): Assessment and plan: Continue home medications. High risk for pulmonary involvement of COVID-19 - continue prophylactic remdesivir. Check exercise oximetry prior to d/c. Encourage IS/acapella as above. (5) DVT prophylaxis: Status: Acute Assessment and plan: SC lovenox (6) Discharge planning issues: Status: Acute Assessment and plan: Full code Anticipate discharge home tomorrow. Subjective Subjective Interval history since last seen: Mr Daniel feels better today, but tired and not back to normal. Diarrhea has stopped. Tolerating PO. Does get SOB when walking, but feels ok at rest. Denies dizziness, chest pain, nausea. When we discussed whether he wanted to go home today or would be willing to wait until tomorrow to get the echo and finish his third dose of remdesivir, he would rather do the latter. Exam Narrative Exam Narrative: General: Pleasant middle-aged male who appears tired, A&Ox3, laying on his left side. HEENT: EOMI, MMM Heart: RRR, no m/r/g Lungs: Crackles L base. Abdomen: soft, nontender, nondistended Extremities: no edema BLEs. Objective Last Vital Signs Temp 37.1 C 03/05/21 11:58 Pulse 65 03/05/21 11:58 Resp 18 03/05/21 11:58 BP 115/81 03/05/21 11:58 Pulse Ox 93 03/05/21 11:58 Laboratory Results - last 24 hr 03/05/21 03/05/21 03/05/21 06:20 06:20 06:20 WBC 2.98 L RBC 4.17 L Hgb 11.1 L Hct 35.8 L MCV 85.9 MCH 26.6 L MCHC 31.0 L RDW 15.6 H Plt Count 136 MPV 10.3 Immature Gran % 0.3 Neutrophils % 66.1 Lymphocytes % 17.8 Monocytes % 7.0 Eosinophils % 8.1 Basophils % 0.7 Nucleated RBC % 0 Absolute Neutrophils 1.97 Absolute Lymphocytes 0.53 L Absolute Monocytes 0.21 Absolute Eosinophils 0.24 Absolute Basophils 0.02 PT INR D-Dimer Sodium 138 Potassium 4.6 Chloride 104 Carbon Dioxide 25.0 Anion Gap 9.0 BUN 18 Creatinine 1.1 Estimated GFR/1.73 m2 >= 60.00 Glucose 99 Calcium 8.2 L Phosphorus 3.5 Magnesium 1.9 Ferritin 1280 H Total Bilirubin 0.4 Conjugated Bilirubin 0.1 AST 48 H ALT 29 Alkaline Phosphatase 108 C-Reactive Protein 2.40 H Total Protein 7.8 Albumin 3.0 L Procalcitonin 0.1 03/05/21 06:20 WBC RBC Hgb Hct MCV MCH MCHC RDW Plt Count MPV Immature Gran % Neutrophils % Lymphocytes % Monocytes % Eosinophils % Basophils % Nucleated RBC % Absolute Neutrophils Absolute Lymphocytes Absolute Monocytes Absolute Eosinophils Absolute Basophils PT 11.0 INR 1.1 D-Dimer 965 H Sodium Potassium Chloride Carbon Dioxide Anion Gap BUN Creatinine Estimated GFR/1.73 m2 Glucose Calcium Phosphorus Magnesium Ferritin Total Bilirubin Conjugated Bilirubin AST ALT Alkaline Phosphatase C-Reactive Protein Total Protein Albumin Procalcitonin
[2021-03-05] MEDS: Enoxaparin 40 MG/0.4 ML SYR SC (16:56)
--- NOTE | 2021-03-06 | DI.US_ITS ---
APPROVED REPORT EXAM: Comprehensive 2D, Doppler, and color-flow Echocardiogram Patient Location: In-Patient Room/Bed: [address] Manager: Janice Amato RDCS (AE) Indications: Elevated troponin, COVID Other Information Study Quality: Adequate. Technically limited study due to inability to position patient, exam done [place] bedside. Conclusion Normal left ventricular wall thickness and chamber size. Estimated ejection fraction is 60%. There are no segmental wall motion abnormalities Normal right ventricular size and systolic function Both atria are normal in size There is no structural or hemodynamically significant valvular disease Mildly dilated ascending aorta, 3.55 cm Wall motion Left Ventricle The left ventricle is normal size. The left ventricular systolic function is normal. The left ventric ular ejection fraction is within the normal range. There is normal left ventricular wall thickness. T here is normal LV segmental wall motion. There is no ventricular septal defect visualized. LVEF is 60 %. Right Ventricle The right ventricle is normal size. The right ventricular systolic function is normal. Atria The left atrium size is normal. The right atrium size is normal. The interatrial septum is intact wit h no evidence for an atrial septal defect. Aortic Valve Aortic valve is trileaflet. The aortic valve is normal in structure. There is no aortic valvular sten osis. No aortic regurgitation is present. Mitral Valve The mitral valve is normal in structure. No evidence of mitral valve stenosis. Trace mitral regurgita tion. Tricuspid Valve The tricuspid valve is normal in structure. There is no tricuspid valve stenosis. Trace tricuspid reg urgitation. Unable to assess PA pressure. Pulmonic Valve The pulmonary valve is normal in structure. There is no pulmonic valvular stenosis. Trace pulmonic re gurgitation. Great Vessels The aortic root is normal in size. The ascending aorta is mildly dilated. IVC is normal in size and c ollapses >50% with inspiration. Pericardium There is no pericardial effusion. 2D Dimensions IVSD d PLAX 1.00 cm M: 0.6-1.2 LV Vol A2C d MOD 122.0 mL LVPW d PLAX 1.02 cm M: 0.6 - 1.2 LV Vol A4C d MOD 124.2 mL LVID d PLAX 4.39 cm M: 4.2 - 5.8 LA vol/ BSA A4C s A-L 13.9 mL/m2 LVDs 2.95 cm M: 2.5 - 4.0 LA Area A4C s MOD 12.80 cm2 Ao Root d 3.26 cm M: 3.1 - 3.7 LV EF A4C MOD 60.8 % RA Area A4C 11.97 cm2 LV EF A2C MOD 59.2 % RA Vol/ BSA A4C s A-L 11.7 mL/m2 LV EF Biplane MOD 59.0 % Ao Asc Diam d 3.55 cm M: 2.6 - 3.4 SV 74.42 mL LV EF Teichholz 61.4 % SV Index 34.29 mL/m2 LVEF (Hernandez's) 59.04 % M: 52 - 72 LV Volume 92.06 mL M: 62 - 150 LV Volume Index 42.42 mL/m2 M: 34 - 74 LV Vol Biplane MOD 126.0 mL FS 32.70 % M-Mode TAPSE 2.29 cm (M/F) >1.7 LV Diastology MV E' medial 0.084 (>0.07 m/s) E/A Ratio 1.1 LV E/e MED 6.00 (<14) MV E Vmax 0.51 (0.4-1.3 m/s) MV E' lateral 0.132 (>0.1 m/s) MV A Vmax 0.45 (0.4-1.3 m/s) LV E/e LAT 3.85 (<14) MV E/A Ratio 1.10 MV E/E' medial 6.03 MV E/E' lateral 3.85 Aortic Valve LVOT Area 3.09 cm2 AoV Area Vmax 2.15 cm2 LVOT Vmax 0.81 m/s AoV Area/ BSA (Vmax) 0.99 cm2/m2 LVOT Mean Deni. 0.53 m/s FLOWER Mean Deni. 2.00 cm2 LVOT Peak Grad 2.7 mmHg FLOWER Mean Deni. Index 0.92 cm2/m2 LVOT Mean Grad 1.3 mmHg LVOT VTI 0.153 m LVOT Diam s 1.95 cm AoV Vmax 1.17 m/s Velocity Ratio 0.69 AoV Mean Deni. 0.81 m/s AoV Peak Grad 5.5 mmHg LVOT SV 47.33 mL AoV Mean Grad 2.9 mmHg AoV VTI 0.188 m AoV Area VTI 2.52 cm2 AoV Area/ BSA (VTI) 1.16 cm/m2 Mitral Valve MV DT 300 (160-240 msec) MV PHT 87 msec MV Area PHT 2.53 cm2 MV VTI 0.154 m MV Area VTI 3.08 (4.0-6.0 cm2) Pulmonary Valve PV Vmax 0.89 (0.5-1.5 m/s) RVOT Peak Gr. 1.44 mmHg PV Peak Grad 3.1 mmHg RVOT Mean Gr. 0.65 mmHg PV Mean Grad 1.8 mmHg RVOT VTI 0.098 m PV VTI 0.147 m RVOT Vmax 0.60 m/s
[2021-03-06 03:05] VITALS: PULSE 62; RESP 20; O2SAT 94
[2021-03-06 05:30] LABS: Vitamin D 25 Total 12.4 ng/mL (30-100)
[2021-03-06 07:00] VITALS: PULSE 72
[2021-03-06 07:21] LABS: Abs Immature Grans 0.02 10^3/uL (0.0-0.06); Absolute Eosinophil Count 0.26 10^3/uL (0.0-0.7); Absolute Lymphocyte Count 0.51 10^3/uL (1.2-3.4); Absolute Monocyte Count 0.17 10^3/uL (0.1-0.8); Absolute Neutrophil Count 1.98 10^3/uL (1.2-6.7); Eosinophils % 8.8; HCT 37.4 % (40.0-50.0); HGB 11.9 g/dL (13.5-17.5); Immature Grans % 0.7; Lymphocytes % 17.3; MCH 26.7 pg (27.0-33.0); MCHC 31.8 % (32.0-36.0); MCV 83.9 fL (80-95); MPV 11.2 fL (8.0-11.0); Monocytes % 5.8; Neutrophils % 67.4; Nucleated RBC 0 %; Platelet Count 157 10^3/uL (130-400); RBC 4.46 10^6/uL (4.36-5.78); RDW 15.7 % (11.8-14.1); RDW-SD 47.8 fL; WBC 2.94 10^3/uL (4.4-10.8)
[2021-03-06 07:34] LABS: INR 1.1 (0.9-1.1); Prothrombin Time 11.5 sec (9.3-11.0)
[2021-03-06 07:43] LABS: Anion Gap 8.8 mmol/L (3-11); BUN 18 mg/dL (7-18); CO2 25.2 mmol/L (21.0-32.0); Calcium 8.4 mg/dL (8.5-10.1); Chloride 104 mmol/L (98-107); Glucose 98 mg/dL (74-106); Magnesium 1.7 mg/dL (1.8-2.4); Potassium 4.6 mmol/L (3.5-5.1); Sodium 138 mmol/L (136-145)
[2021-03-06 07:50] VITALS: BP 141/91; PULSE 75; RESP 18; TEMP 37.9; O2SAT 95
[2021-03-06] MEDS: Tiotropium/Olodaterol 10 PUFF INHALER 2 PUFF IH (07:52)
[2021-03-06] MEDS: Nicotine 14 MG/24 HR PATCH TD (07:53)
[2021-03-06] MEDS: Zinc Sulfate 220 MG TAB PO (07:54)
[2021-03-06] MEDS: Cholecalciferol (Vitamin D3) 1,000 UNIT TAB 2000 UNITS PO (07:54)
[2021-03-06 07:55] LABS: D-Dimer 1154 ng/mlFEU (<500)
[2021-03-06] MEDS: Indomethacin 25 MG CAP PO (07:55)
[2021-03-06] MEDS: Ascorbic Acid 500 MG TAB 1000 MG PO (07:55)
[2021-03-06] MEDS: amLODIPine 5 MG TAB PO (07:55)
[2021-03-06] MEDS: Famotidine 20 MG TAB PO (07:55)
[2021-03-06 08:42] VITALS: PULSE 61; PULSE 62; PULSE 76; RESP 17; RESP 18; RESP 20; O2SAT 92; O2SAT 95
[2021-03-06 09:12] LABS: Ferritin 1481 ng/mL (26-388)
[2021-03-06] MEDS: REMDESIVIR 100 MG in Normal Saline 250 ML 250 MG IVPB (09:13)
[2021-03-06 09:37] LABS: Lab Add On Test DONE
[2021-03-06 09:47] LABS: C-Reactive Protein 1.74 mg/dL (0.0-0.3)
[2021-03-06] MEDS: MAGNESIUM SULFATE 2 GM/50 ML BAG IVPB (10:41)
[2021-03-06 12:01] VITALS: BP 128/87; PULSE 69; RESP 18; TEMP 37; O2SAT 92
--- NOTE | 2021-03-06 12:03 | DSE_ITS ---
Date of service: 03/06/21 Time of Service: 12:03 DS: Diagnosis Discharge Diagnosis (1) COVID: Status: Acute (2) Myocarditis 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: Status: Acute (3) Diarrhea: Status: Resolved (4) COPD (chronic obstructive pulmonary disease): (5) Hypomagnesemia: Status: Acute (6) Vitamin D deficiency: Status: Acute Discharge Plan Disposition Patient Disposition: HOME Condition: Improving Discharge Details Reason For Visit: Viral Illness;Elevated Troponin Admit Date/Time: 03/04/21 11:35 Admit Provider: Roni Crandall Attending Provider: Roni Crandall Primary Care Provider: Jay Ochoa Hospital Course Hospital Course: Mr Daniel is a 61 year old male with PMHx of non-oxygen dependent COPD as well as restrictive lung disease, hypertension, tobacco abuse, who was vaccinated against COVID-19 with a J&J vaccine but had not yet received a booster, who was a patient on [facility] hospitalist service from 03/03/21 until 03/06/21 having presented with shortness of breath on exertion, nonproductive cough, abdominal pain, and intractable diarrhea x 1 month, with two negative at- home COVID tests. He tested positive for COVID-19 in our ED, has had fevers in the hospital, and bloodwork markers c/w acute COVID-19 infection (leucopenia, elevated D-dimer, ferritin, and CRP). He also had mildly elevated troponins. His CT chest/abdomen/pelvis showed patchy L-sided infiltrates, but no acute disease in abdomen/pelvis. His procalcitonin was negative, ruling out a bacterial pulmonary process. His EKG did not show ischemic changes, and his echocardiogram did not reveal any wall motion abnormalities, demonstrating a preserved LVEF. He has not had any arrhythmic events on telemetry. He has not required oxygen supplementation in the hospital, including on ambulation. He received a three- day course of remdesivir as he is considered high risk for developing a severe illness from COVID-19. His diarrhea was treated with prn loperamide. His elevated troponin is felt to be due to a mild myocarditis due to COVID-19. At this point, the patient is deemed stable for discharge home with pulse oximetry monitoring - he confirms that he has a pulse oximeter. He is instructed to return to the ED should he notice O2 saturations 88% or below which do not quickly recover. He verbalized understanding. He is instructed to self-isolate until he has been afebrile x 24 hours without use of antipyretics and feels overall better. He is encouraged to get a COVID-19 vaccine booster and to stop smoking. The patient is ready for discharge home today. Care for patient as well as completion of his discharge summary on day of discharge took 45 minutes. Home Meds and New Rx's Prescriptions: New loperamide 2 mg Capsule 2 mg PO Q4H PRN PRN (Reason: loose stool) Qty: 30 RF: 0 ascorbic acid (vitamin C) [Vitamin C] 500 mg Tablet 1,000 mg PO BID Qty: 112 RF: 0 cholecalciferol (vitamin D3) 25 mcg (1,000 unit) Tablet 2,000 units PO DAILY Qty: 30 RF: 0 nicotine 14 mg/24 hr Patch 24 Hour 14 mg transdermal DAILY Qty: 30 RF: 0 zinc sulfate [Zinc-220] 50 mg zinc (220 mg) Capsule 220 mg PO DAILY Qty: 10 RF: 0 acetaminophen [Aphen] 325 mg tablet 650 mg PO Q6H PRN (Reason: fever or pain) Qty: 30 RF: 0 Continued amlodipine 5 mg Tablet 5 mg PO DAILY Qty: 30 RF: 0 Anoro Ellipta 62.5-25 mcg/actuation blister with device 1 inh INHALATION DAILY RF: 0 albuterol sulfate 90 mcg/actuation HFA aerosol inhaler 2 puff INHALATION Q4H PRN PRNRF: 0 Discharge Instructions Instructions: Loperamide (By mouth), How to Stop Smoking (DC), Cigarette Smoking and Your Health (GEN), Myocarditis (DC), Vitamin D Deficiency (ED), COVID-19 (Coronavirus Disease 2019) (DC) Additional Instructions: Continue to self-isolate until your fevers have resolved for 24 hrs without the use of antipyretics (tylenol/NSAIDs). Return to the hospital if your oxygen saturations on pulse oximetry drop to 88% or below and stay there, if you develop chest pain, worsening shortness of breath, or bleeding. You must try to stop smoking! You are strongly encouraged to get an mRNA COVID-19 vaccine booster (Pfizer or Moderna) 2-3 weeks after your recovery. Follow up with your PCP in 2-3 weeks. Stand Alone Forms: Nursing Discharge Form Referrals: Jay Ochoa MD [Primary Care Provider] - Activity:: Activity as Tolerated Equipment/Supplies:: No Equipment Needed Diet:: As Tolerated Discharge Orders Discharge Orders: Discharge Order (Routine); Ordered 03/06/21 Ordered By: Leida Barrera DS: Summary Time Spent with Patient providing and/or coordinating discharge services: Greater than 30 minutes Status at Discharge Functional status at discharge: independent ambulation Overall status at discharge: patient is progressing back to baseline Mental Status: mental status grossly normal Speech and Movement: speech and movement normal Mood: congruent mood Affect: normal affect Exam Narrative Exam Narrative: Today's exam is done via the phone due to patient's diagnosis of COVID-19 and his stability. The patient was speaking in full sentences, no dyspena/tachypnea, appropriate thought pattern/content. Psych Mental Status: mental status grossly normal Speech and Movement: speech and movement normal Mood: congruent mood Affect: normal affect DS: Data Vitals/I&O Vitals and I&O: Vital Signs Temperature 37 C 03/06/21 12:01 Temperature Source Tympanic 03/06/21 12:01 Pulse 69 03/06/21 12:01 Pulse Rhythm Regular 03/06/21 08:35 Respiratory Rate 18 03/06/21 12:01 Respiratory Effort Non-Labored 03/06/21 08:35 Respiratory Depth Normal 03/06/21 08:35 Respiratory Pattern Normal 03/06/21 08:35 Blood Pressure 128/87 03/06/21 12:01 Blood Pressure Position Sitting 03/03/21 01:20 Pulse Oximetry 92 03/06/21 12:01 Oxygen Delivery Method Room Air 03/06/21 12:01 Oxygen Flow Rate 0 03/06/21 12:01 Fraction of Inspired Oxygen (FIO2) 21 03/05/21 08:01 Pain Level 0 03/06/21 07:50 Comment 03/06/21 03:05 Intake & Output 03/05/21 03/06/21 03/06/21 23:59 11:59 23:59 Intake Total 800 / 1800 500 / 500 Output Total 400 / 1250 400 / 400 Balance 400 / 550 100 / 100 Intake: IV 250 / 1000 250 / 250 Oral 550 / 800 250 / 250 Output: Urine 400 / 1250 400 / 400 Other: Urine Color Yellow Yellow Urine Appearance Clear Urine Odor None Emesis Description Clear/Water Voiding Methods Toilet Toilet Data Completed and Pending Completed studies during hospitalization [Text1]: CT chest/abdomen/pelvis: Patchy left-sided pulmonary infiltrates. No acute abnormality in the abdomen or pelvis. Echo; Normal left ventricular wall thickness and chamber size. Estimated ejection fraction is 60%. There are no segmental wall motion abnormalities Normal right ventricular size and systolic function Both atria are normal in size There is no structural or hemodynamically significant valvular disease Mildly dilated ascending aorta, 3.55 cm Labs on day of discharge: Labs from last 24 hours 03/06/21 03/06/21 03/06/21 06:40 06:40 06:40 WBC RBC Hgb Hct MCV MCH MCHC RDW Plt Count MPV Immature Gran % Neutrophils % Lymphocytes % Monocytes % Eosinophils % Basophils % Nucleated RBC % Absolute Neutrophils Absolute Lymphocytes Absolute Monocytes Absolute Eosinophils Absolute Basophils PT 11.5 H INR 1.1 D-Dimer 1154 H Sodium Potassium Chloride Carbon Dioxide Anion Gap BUN Creatinine Estimated GFR/1.73 m2 Glucose Calcium Phosphorus Magnesium Ferritin C-Reactive Protein 1.74 H 25-OH Vitamin D Total Add-On Test Request DONE 03/06/21 03/06/21 03/05/21 06:40 06:40 06:20 WBC 2.94 L RBC 4.46 Hgb 11.9 L Hct 37.4 L MCV 83.9 MCH 26.7 L MCHC 31.8 L RDW 15.7 H Plt Count 157 MPV 11.2 H Immature Gran % 0.7 Neutrophils % 67.4 Lymphocytes % 17.3 Monocytes % 5.8 Eosinophils % 8.8 Basophils % 0.0 Nucleated RBC % 0 Absolute Neutrophils 1.98 Absolute Lymphocytes 0.51 L Absolute Monocytes 0.17 Absolute Eosinophils 0.26 Absolute Basophils 0.00 PT INR D-Dimer Sodium 138 Potassium 4.6 Chloride 104 Carbon Dioxide 25.2 Anion Gap 8.8 BUN 18 Creatinine 1.0 Estimated GFR/1.73 m2 >= 60.00 Glucose 98 Calcium 8.4 L Phosphorus 3.0 Magnesium 1.7 L Ferritin 1481 H C-Reactive Protein 25-OH Vitamin D Total 12.4 L Add-On Test Request PFSH All Active Problems Vitamin D deficiency (Acute) Hypomagnesemia (Acute) 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) Discharge planning issues (Acute) COVID (Acute) Viral illness (Acute) Elevated troponin (Acute) DVT prophylaxis (Acute) Headache (Acute) Tobacco abuse (Acute) Medical History COPD (chronic obstructive pulmonary disease) HTN (hypertension) Restrictive airway disease Surgical History No significant past surgical history Social History Smoking/Tobacco Use Status: Current every day Tobacco Type: cigarettes Smoking risk assessment performed?: Yes Alcohol Intake: current Alcohol Intake frequency: holidays/special occasions only Substance use type: does not use Do you feel safe at home: Yes Do you feel safe in your relationship?: Yes
--- NOTE | 2021-03-06 12:11 | NUR.NOTE ---
pt was told by doctor that he was being discharged so pt removed tele and wanted IV stopped and IV removed. Nursing stated that discharge order was not in yet however pt requested to have IV stopped now. Nursing Note:
--- NOTE | 2021-03-06 13:18 | PDOC.CMDIS ---
- If Service Date Differs Date of service: 03/06/21 Time of Service: 13:18 LACE Index Scoring Tool - Questions: Length of Stay (in days): 3 Acuity (Admit via E.D.?): Yes Comorbidities: Chronic Pulmonary Disease E.D. Visits: 1 - Answers: Total Score: 9 Risk of Readmission: Low Risk Care Management Discharge Reason for Hospitalization: Elevated troponin, Diarrhea, Covid, COPD Discharge Plan: Per MD: the patient is deemed stable for discharge home with pulse oximetry monitoring - he confirms that he has a pulse oximeter. He is instructed to return to the ED should he notice O2 saturations 88% or below which do not quickly recover. He verbalized understanding. He is instructed to self-isolate until he has been afebrile x 24 hours without use of antipyretics and feels overall better. He is encouraged to get a COVID-19 vaccine booster and to stop smoking. He will follow up with his PCP and plan of care as prescribed. He will transport via private vehicle with family. Patient/Family Education Needs: Review of discharge instructions, discuss Ask Me Three. Services Needed at Discharge: DME Agency ([employer] )
== END 2021-03-06 12:54 | disposition home or self-care (01) | DRG 177 ==
LOC: ER 03:50 → MS 04:28
PROVIDERS: Internal Medicine; Nurse Practitioner Acute Care; Admitting Provider Family Medicine; Emergency Provider Emergency Medicine; PCP Internal Medicine; Visit Provider Family Medicine
DX: U07.1 COVID-19 (principal); I40.0 Infective myocarditis; I10 Essential (primary) hypertension; J44.9 Chronic obstructive pulmonary disease, unspecified; F17.210 Nicotine dependence, cigarettes, uncomplicated; B97.89 Other viral agents as the cause of diseases classified elsewhere; R19.7 Diarrhea, unspecified; R51.9 Headache, unspecified; E55.9 Vitamin D deficiency, unspecified
CPT/HCPCS: 36415; 74177; 80048; 80053; 80076; 82306; 83690; 84145; 85652; 87329; 87493; 87505; 87635; 93005; 94618; 94640; 96361; 96365; 96375; 99285; J1650; 71260; 81003; 81015; 82728; 83605; 83630; 83735; 84100; 84484; 85025; 85379; 85610; 86140; 93010; 93306; 94667; 99219; 99232; 99239; G0378; J0248; J3490

== ENCOUNTER 2021-04-30 17:28 | Emergency (ER) | payer OTHER, SELFPAY ==
[2021-04-30] VITALS (7 sets, daily range): BP systolic 123–167; BP diastolic 75–99; PULSE 71–97; RESP 17–28; TEMP 36.7; O2SAT 96–100
--- NOTE | 2021-04-30 17:30 | RT.EKG_ITS ---
APPROVED REPORT Exam: Resting ECG Reason for Exam: chest pain Patient Location: E HR:89 bpm ECG Measurements Heart Rate 89 AXIS MO 155 P 78 QRSd 92 QRS -22 QT 343 T 6 QTc 418 Conclusion Sinus rhythm...normal P axis, V-rate 60- 99 Inferior infarct, old...Q >35mS, II III aVF
[2021-04-30] MEDS: Famotidine 20 MG/2 ML VIAL IVP (18:30)
[2021-04-30] MEDS: Pantoprazole 40 MG TABCR PO (18:31)
[2021-04-30 18:39] LABS: Abs Immature Grans 0.02 10^3/uL (0.0-0.06); Absolute Basophil Count 0.01 10^3/uL (0.0-0.2); Absolute Eosinophil Count 0.13 10^3/uL (0.0-0.7); Absolute Lymphocyte Count 0.67 10^3/uL (1.2-3.4); Absolute Monocyte Count 0.21 10^3/uL (0.1-0.8); Absolute Neutrophil Count 2.12 10^3/uL (1.2-6.7); Basophils % 0.3; Eosinophils % 4.1; HCT 36.3 % (40.0-50.0); HGB 11.2 g/dL (13.5-17.5); Immature Grans % 0.6; Lymphocytes % 21.2; MCHC 30.9 % (32.0-36.0); MCV 84.4 fL (80-95); MPV 10.4 fL (8.0-11.0); Monocytes % 6.6; Neutrophils % 67.2; Nucleated RBC 0 %; Platelet Count 149 10^3/uL (130-400); RDW-SD 54.5 fL; WBC 3.16 10^3/uL (4.4-10.8)
--- NOTE | 2021-04-30 18:42 | W.ED.GENAD ---
Discharge Plan Disposition Patient Disposition: HOME Condition: Stable Discharge Details Clinical Impression: Substernal chest pain, Gastroesophageal reflux disease Primary Care Provider: Jay Ochoa ED Provider: Joe Mahmood Home Meds and New Rx's Prescriptions: New pantoprazole [Protonix] 40 mg tablet,delayed release (DR/EC) 40 mg PO DAILY Qty: 30 0RF Continued amlodipine 5 mg Tablet 5 mg PO DAILY Qty: 30 0RF Anoro Ellipta 62.5-25 mcg/actuation blister with device 1 inh INHALATION DAILY 0RF albuterol sulfate 90 mcg/actuation HFA aerosol inhaler 2 puff INHALATION Q4H PRN PRN0RF Rx Instructions: 2 PUFFS Q4-6H PRN loperamide 2 mg Capsule 2 mg PO Q4H PRN PRN (Reason: loose stool) Qty: 30 0RF ascorbic acid (vitamin C) [Vitamin C] 500 mg Tablet 1,000 mg PO BID Qty: 112 0RF cholecalciferol (vitamin D3) 25 mcg (1,000 unit) Tablet 2,000 units PO DAILY Qty: 30 0RF nicotine 14 mg/24 hr Patch 24 Hour 14 mg transdermal DAILY Qty: 30 0RF zinc sulfate [Zinc-220] 50 mg zinc (220 mg) Capsule 220 mg PO DAILY Qty: 10 0RF acetaminophen [Aphen] 325 mg tablet 650 mg PO Q6H PRN (Reason: fever or pain) Qty: 30 0RF Discharge Instructions Instructions: Chest Pain (ED), GERD (Gastroesophageal Reflux Disease) (ED) Additional Instructions: Please take antiacid medication Protonix as prescribed. Please follow-up with your primary care physician. Please follow-up with general surgery for endoscopy. Call to schedule an appointment to schedule an appointment. Return to the emergency department for any worsening or new concerning symptoms. Referrals: [facility] [Provider Group] Jay Ochoa MD [Primary Care Provider] - Medical Decision Making 1850 -- 61-year-old male diagnosed with COVID and COVID-19 myocarditis in February, notes substernal chest discomfort over the past 2 months, reproducible with swallowing. Patient notes that he did a home antigen COVID-19 test and has tested positive for the third time today. Patient notes diarrhea and generally does not feel well. Patient does not have active sternal pain at this time but notes that he would if you were to have something to drink. Patient has had 25 pound unintentional weight loss as he has not been eating or drinking as much because of pain. I suspect patient has gastroesophageal reflux disease. Plan to treat with Pepcid IV and Protonix orally. I will order IV fluid bolus given decreased p.o. intake and poor hydration. I considered ACS. History is atypical for coronary artery disease. Screening EKG was performed and nondiagnostic, no STEMI. 1941 --labs reviewed and nondiagnostic. Chronic anemia noted. Consider gastric ulcer. Plan to continue to treat with PPI. I will refer the patient to follow-up with general surgery for likely endoscopy. HPI General Mode of arrival: ambulatory. Date/Time Provider Initiated Documentation: 04/30/21 17:59. Limitations to Documentation: no limitations. Information obtained by: patient. HPI Narrative: 61-year-old male with history of COPD, COVID-19 and COVID-19 myocarditis in February 2021, notes he has continued to have positive COVID-19 results on home antigen testing, presents today with chief complaint of substernal chest pain. Patient notes lower substernal chest pain that has been going on for 2 months. Patient states he has pain persistently and it is worse after he swallows. He denies pain currently but notes that if he were to drink something here it would reproduce pain. He notes he has not been eating or drinking as much and has had weight loss because of this. Patient denies associated abdominal pain. No nausea or vomiting. Patient notes intermittent cough. No fever. Related Data Home Medications Medication Instructions Recorded Confirmed amlodipine 5 mg tablet 5 mg PO DAILY #30 tab 07/25/18 04/30/21 umeclidinium 62.5 mcg-vilanterol 1 inh INHALATION DAILY 12/11/19 04/30/21 25 mcg/actuation powdr for inhalation (Anoro Ellipta) albuterol sulfate 90 mcg/actuation 2 puff INHALATION Q4H PRN PRN 03/03/21 04/30/21 aerosol inhaler acetaminophen 325 mg tablet (Aphen) 650 mg PO Q6H PRN #30 tab 03/06/21 04/30/21 ascorbic acid (vitamin C) 500 mg 1,000 mg PO BID #112 tab 03/06/21 04/30/21 tablet (Vitamin C) cholecalciferol (vitamin D3) 25 2,000 units PO DAILY #30 tab 03/06/21 04/30/21 mcg (1,000 unit) tablet loperamide 2 mg capsule 2 mg PO Q4H PRN PRN #30 cap 03/06/21 04/30/21 nicotine 14 mg/24 hr daily 14 mg TRANSDERMAL DAILY #30 ea 03/06/21 04/30/21 transdermal patch zinc sulfate 50 mg zinc (220 mg) 220 mg PO DAILY #10 cap 03/06/21 04/30/21 capsule (Zinc-220) pantoprazole 40 mg tablet,delayed 40 mg PO DAILY #30 tab 04/30/21 release (Protonix) Previous Rx's Medication Instructions Recorded amlodipine 5 mg tablet 5 mg PO DAILY #30 tab 07/25/18 acetaminophen 325 mg tablet (Aphen) 650 mg PO Q6H PRN #30 tab 03/06/21 ascorbic acid (vitamin C) 500 mg 1,000 mg PO BID #112 tab 03/06/21 tablet (Vitamin C) cholecalciferol (vitamin D3) 25 2,000 units PO DAILY #30 tab 03/06/21 mcg (1,000 unit) tablet loperamide 2 mg capsule 2 mg PO Q4H PRN PRN #30 cap 03/06/21 nicotine 14 mg/24 hr daily 14 mg TRANSDERMAL DAILY #30 ea 03/06/21 transdermal patch zinc sulfate 50 mg zinc (220 mg) 220 mg PO DAILY #10 cap 03/06/21 capsule (Zinc-220) pantoprazole 40 mg tablet,delayed 40 mg PO DAILY #30 tab 04/30/21 release (Protonix) Allergies Allergy/AdvReac Type Severity Reaction Status Date / Time nut - unspecified Allergy Severe Anaphylaxsi Unverified 04/30/21 17:42 s latex Allergy Unverified 04/30/21 17:42 General Stated Complaint: Chest Pain LILI: 2 Review of Systems All systems reviewed & are unremarkable except as noted in HPI and below Constitutional Constitutional: Denies fever(s) Cardiovascular Cardiovascular: Denies dyspnea Respiratory Respiratory: Reports cough and Denies dyspnea Gastrointestinal Gastrointestinal: Reports as per HPI PFSH All Active Problems (Updated 04/30/21 @ 19:46 by Joe Mahmood MD) Substernal chest pain (Acute) Gastroesophageal reflux disease (Chronic) Vitamin D deficiency (Acute) Hypomagnesemia (Acute) 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) COVID (Acute) Elevated troponin (Acute) Headache (Acute) Tobacco abuse (Acute) Medical History COPD (chronic obstructive pulmonary disease) HTN (hypertension) Restrictive airway disease Surgical History No significant past surgical history Social History Smoking/Tobacco Use Status: Current every day Tobacco Type: cigarettes Smoking risk assessment performed?: Yes Alcohol Intake: current Alcohol Intake frequency: holidays/special occasions only Substance use type: does not use Do you feel safe at home: Yes Do you feel safe in your relationship?: Yes Exam Const General: cooperative and no acute distress HENMT Mouth: mucous membranes dry Eyes Conjunctivae: normal conjunctivae Sclera: normal sclerae Resp Auscultation: clear to auscultation bilaterally, no rales, no rhonchi and no wheezes Cardio Rate: regular rate and not tachycardic Rhythm: regular rhythm GI Palpation: soft, not firm, no guarding, no masses, not rigid and nontender Skin General skin exam: no rashes or lesions noted Neuro General: patient alert, patient awake and tone normal Extrem General: no edema Psych Appearance: grossly normal Mental Status: mental status grossly normal Speech and Movement: speech and movement normal Course Vital Signs Vital signs: Vital Signs Temperature 36.7 C 04/30/21 17:37 Pulse 93 H 04/30/21 17:37 Respiratory Rate 17 04/30/21 17:37 Blood Pressure 167/99 H 04/30/21 17:37 Pulse Oximetry 100 04/30/21 17:37 Temperature 36.7 C 04/30/21 17:37 Temperature Source Skin 04/30/21 17:37 Pulse 93 H 04/30/21 17:37 Respiratory Rate 17 04/30/21 17:37 Respiratory Effort 04/30/21 17:37 Blood Pressure 167/99 H 04/30/21 17:37 Blood Pressure Position Supine 04/30/21 17:37 Pulse Oximetry 100 04/30/21 17:37 Oxygen Delivery Method Room Air 04/30/21 17:37 Oxygen Flow Rate 0 04/30/21 17:37 Pain Level 3 04/30/21 17:37 Lab/Test Results Lab/Test Results: Laboratory Tests Range/Units 04/30/21 18:30 WBC (4.4-10.8) 10^3/uL 3.16 L RBC (4.36-5.78) 10^6/uL 4.30 L Hgb (13.5-17.5) g/dL 11.2 L Hct (40.0-50.0) % 36.3 L MCV (80-95) fL 84.4 MCH (27.0-33.0) pg 26.0 L MCHC (32.0-36.0) % 30.9 L RDW (11.8-14.1) % 18.0 H Plt Count (130-400) 10^3/uL 149 MPV (8.0-11.0) fL 10.4 Immature Gran % 0.6 Neutrophils % 67.2 Lymphocytes % 21.2 Monocytes % 6.6 Eosinophils % 4.1 Basophils % 0.3 Nucleated RBC % % 0 Absolute Neutrophils (1.2-6.7) 10^3/uL 2.12 Absolute Lymphocytes (1.2-3.4) 10^3/uL 0.67 L Absolute Monocytes (0.1-0.8) 10^3/uL 0.21 Absolute Eosinophils (0.0-0.7) 10^3/uL 0.13 Absolute Basophils (0.0-0.2) 10^3/uL 0.01
--- NOTE | 2021-04-30 18:45 | DI.RAD_ITS ---
Exam(s) XR PORTABLE CHEST AP EXAM: XR PORTABLE CHEST AP CLINICAL HISTORY: pain substernal postprandial. TECHNIQUE: 2D digital imaging was performed. COMPARISON: CR XR CHEST 2V PA LATERAL from 07/23/2018 CR,RF RF BARIUM SWALLOW from 07/22/2019 FINDINGS: Single AP portable view. Heart size is upper normal. The mediastinum is not widened. There are mild increased markings in the left lung base adjacent to the heart border. Right lung is clear. No pleural effusions. IMPRESSION: Mild increased markings consistent with possible developing infiltrate just above the left hemidiaphr agm adjacent to the heart border, either within the lingular segment inferior aspect or left lower lo be. There are no pleural effusions DATA REPOSITORY: RADIATION DOSE DELIVERED: All CT scans at this facility use at least one of these dose optimization techniques: automated exposure control; mA and/or kV adjustment per patient size (includes targeted e xams where dose is matched to clinical indication); or iterative reconstruction.
[2021-04-30] MEDS: Lactated Ringers 500 ML IV (19:00)
[2021-04-30 19:01] LABS: ALT 23 U/L (16-63); AST 27 U/L (15-37); Albumin 3.3 g/dL (3.4-5.0); Alkaline Phosphatase 145 U/L (46-116); Anion Gap 6.6 mmol/L (3-11); BUN 14 mg/dL (7-18); Bilirubin, Total 0.4 mg/dL (0.2-1.0); CO2 26.4 mmol/L (21.0-32.0); CREATININE 1.1 mg/dL (0.70-1.30); Calcium 8.2 mg/dL (8.5-10.1); Chloride 105 mmol/L (98-107); Glucose 101 mg/dL (74-106); Potassium 3.8 mmol/L (3.5-5.1); Sodium 138 mmol/L (136-145); Troponin I < 50 ng/L (<or=60)
--- NOTE | 2021-04-30 20:04 | DI.VRAD_ITS ---
PROCEDURE INFORMATION: Exam: XR Chest Exam date and time: 04/30/2021 6:56 PM Age: 61 years old Clinical indication: Sternal or substernal pain; Patient HX: Pain substernal postprandial TECHNIQUE: Imaging protocol: XR of the chest. Views: 1 view. Other technique: Portable exam. COMPARISON: CT CHEST/ABD/PEL W 03/03/2021 2:17 AM FINDINGS: Lungs: There are some coarse interstitial markings in the left upper lobe and left lower lobe with mild atelectasis. No definite consolidation. Pleural spaces: Unremarkable. No pleural effusion. No pneumothorax. Heart/Mediastinum: Mild cardiomegaly. Bones/joints: Unremarkable. IMPRESSION: Left lower lobe atelectasis and minimal left upper lobe interstitial changes, probably not acute. Dictated and Authenticated by: Lisa Artis MD. Ordering:BRIGITTE Diaz MD
== END 2021-04-30 20:26 | disposition home or self-care (01) ==
PROVIDERS: Emergency Provider Student in an Organized Health Care Education/Training Program; PCP Internal Medicine
DX: R07.89 Other chest pain (principal); K21.9 Gastro-esophageal reflux disease without esophagitis; U07.1 COVID-19; Z86.16 Personal history of COVID-19; R19.7 Diarrhea, unspecified; R63.4 Abnormal weight loss; D59.9 Acquired hemolytic anemia, unspecified
CPT/HCPCS: 80053; 93005; 96361; 96374; 99284; 71045; 84484; 85025; 93010

== ENCOUNTER 2021-05-08 09:16 | Outpatient (REF) | payer OTHER, SELFPAY ==
[2021-05-08 17:12] LABS: Abs Immature Grans 0.02 10^3/uL (0.0-0.06); Absolute Basophil Count 0.01 10^3/uL (0.0-0.2); Absolute Eosinophil Count 0.15 10^3/uL (0.0-0.7); Absolute Lymphocyte Count 0.98 10^3/uL (1.2-3.4); Absolute Monocyte Count 0.24 10^3/uL (0.1-0.8); Absolute Neutrophil Count 1.93 10^3/uL (1.2-6.7); Basophils % 0.3; Eosinophils % 4.5; HGB 11.6 g/dL (13.5-17.5); Immature Grans % 0.6; Lymphocytes % 29.4; MCH 26.2 pg (27.0-33.0); MCHC 30.5 % (32.0-36.0); MCV 85.8 fL (80-95); MPV 11.4 fL (8.0-11.0); Monocytes % 7.2; Nucleated RBC 0 %; Platelet Count 149 10^3/uL (130-400); RBC 4.43 10^6/uL (4.36-5.78); RDW 18.1 % (11.8-14.1); RDW-SD 56.4 fL; WBC 3.33 10^3/uL (4.4-10.8)
[2021-05-08 17:45] LABS: Iron 49 ug/dL (65-175); Total Iron Binding Capacity 246 ug/dL (250-450); Transferrin Sat 20 % (20-55)
[2021-05-08 18:06] LABS: ALT 21 U/L (16-63); AST 26 U/L (15-37); Albumin 3.3 g/dL (3.4-5.0); Alkaline Phosphatase 130 U/L (46-116); Anion Gap 9.4 mmol/L (3-11); BUN 10 mg/dL (7-18); Bilirubin, Total 0.4 mg/dL (0.2-1.0); C-Reactive Protein 0.42 mg/dL (0.0-0.3); CO2 25.6 mmol/L (21.0-32.0); Calcium 8.3 mg/dL (8.5-10.1); Chloride 107 mmol/L (98-107); Glucose 146 mg/dL (74-106); Potassium 3.9 mmol/L (3.5-5.1); Sodium 142 mmol/L (136-145); TSH (W/Ref FT4) 1.66 uIU/mL (0.36-3.74); Total Protein 7.7 g/dL (6.4-8.2)
[2021-05-08 18:09] LABS: Ferritin 1230 ng/mL (26-388)
[2021-05-08 18:27] LABS: NT-proBNP 434 pg/mL (<300)
[2021-05-10 09:47] LABS: Prealbumin 24 mg/dL (20-40)
== END 2021-05-08 09:17 | disposition home or self-care (01) ==
LOC: NCHCN 09:16
PROVIDERS: PCP Internal Medicine; Visit Provider Family Medicine
DX: U07.1 COVID-19 (principal); R62.7 Adult failure to thrive; R13.19 Other dysphagia
CPT/HCPCS: 80053; 82728; 83540; 83550; 83880; 84134; 84443; 85025; 86140

== ENCOUNTER 2021-05-22 18:27 | Outpatient (REF) | payer OTHER, SELFPAY ==
[2021-05-22 18:25] LABS: Abs Immature Grans 0.02 10^3/uL (0.0-0.06); Absolute Basophil Count 0.01 10^3/uL (0.0-0.2); Absolute Eosinophil Count 0.12 10^3/uL (0.0-0.7); Absolute Lymphocyte Count 0.83 10^3/uL (1.2-3.4); Absolute Monocyte Count 0.28 10^3/uL (0.1-0.8); Absolute Neutrophil Count 2.44 10^3/uL (1.2-6.7); Basophils % 0.3; Eosinophils % 3.2; HCT 37.8 % (40.0-50.0); HGB 11.6 g/dL (13.5-17.5); Immature Grans % 0.5; Lymphocytes % 22.4; MCH 26.4 pg (27.0-33.0); MCHC 30.7 % (32.0-36.0); MCV 85.9 fL (80-95); MPV 12.1 fL (8.0-11.0); Monocytes % 7.6; Nucleated RBC 0 %; Platelet Count 160 10^3/uL (130-400); RDW 17.6 % (11.8-14.1); RDW-SD 55.2 fL
[2021-05-22 19:28] LABS: ALT 20 U/L (16-63); AST 23 U/L (15-37); Albumin 3.4 g/dL (3.4-5.0); Alkaline Phosphatase 124 U/L (46-116); Anion Gap 10.4 mmol/L (3-11); BUN 13 mg/dL (7-18); Bilirubin, Total 0.4 mg/dL (0.2-1.0); CO2 26.6 mmol/L (21.0-32.0); Calcium 8.3 mg/dL (8.5-10.1); Chloride 103 mmol/L (98-107); Glucose 99 mg/dL (74-106); Potassium 3.3 mmol/L (3.5-5.1); Sodium 140 mmol/L (136-145); Total Protein 7.5 g/dL (6.4-8.2)
== END 2021-05-22 18:28 | disposition home or self-care (01) ==
LOC: NCHCN 18:27
PROVIDERS: PCP Internal Medicine; Visit Provider Family Medicine
DX: R62.7 Adult failure to thrive (principal); U09.9 Post COVID-19 condition, unspecified
CPT/HCPCS: 80053; 82533; 85025

== ENCOUNTER → 2021-05-24 01:29 | Outpatient (CLI) | payer OTHER, SELFPAY ==
--- NOTE | 2021-05-24 06:45 | DI.RAD_ITS ---
Exam(s) RF BARIUM SWALLOW EXAM: RF BARIUM SWALLOW CLINICAL HISTORY: pain/difficulty swallowing/unexplained weght loss,ODYNOPHAGIA,R13.10,K21.9 TECHNIQUE: 2D and realtime digital imaging was performed. CONTRAST MATERIAL: Thick and thin barium were administered. COMPARISON: CT CT CHEST/ABD/PEL W from 03/03/2021 CR,XR XR PORTABLE CHEST AP from 04/30/2021 FINDINGS: PA and lateral fuse assembler views of the chest show normal heart size. Mild emphysematous and fibrotic alcantara ges.. The lateral fuse assembler view of the neck shows degenerative changes greatest at C5-6 and C6-7. Esophagus: The patient swallowed barium without difficulty. No aspiration. Diffuse fold thickening and diffuse mild mucosal erosions consistent with esophagitis.. No mass is visible. Nostricture. Motility: There is a normal primary stripping wave. No tertiary contractions were noted. There is a small sliding hiatal hernia. Severe gastroesophageal reflux was observed during the exam. Stomach grossly unremarkable. IMPRESSION: Small small sliding hiatal hernia and severe gastroesophageal reflux. Diffuse esophagitis. RADIATION DOSE DELIVERED: setph Henao=26.6 mGy
[2021-05-24] MEDS: Barium Sulfate 60% W/V 355 ML BTL PO (09:21)
[2021-05-24] MEDS: Simethicone/Sod Bicarb/Cit Ac, 4 gram PACKET 1 PACKET PO (09:22)
== END ==
PROVIDERS: PCP Internal Medicine; Visit Provider Surgery
DX: J44.9 Chronic obstructive pulmonary disease, unspecified (principal); J98.4 Other disorders of lung; K21.9 Gastro-esophageal reflux disease without esophagitis; R13.10 Dysphagia, unspecified; R63.4 Abnormal weight loss; Z72.0 Tobacco use
CPT/HCPCS: 74221; J3490

== ENCOUNTER 2021-06-06 17:18 | Outpatient (REF) | payer OTHER, SELFPAY ==
[2021-06-06 18:47] LABS: NT-proBNP 324 pg/mL (<300)
[2021-06-06 19:04] LABS: Hemoglobin A1C 5.8 % (<5.7)
[2021-06-08 10:43] LABS: IgA 484 mg/dL (85-499); IgG 1651 mg/dL (610-1,616); IgM 90 mg/dL (35-242)
[2021-06-09 08:38] LABS: IgE 458 IU/mL (<158)
== END 2021-06-06 17:19 | disposition home or self-care (01) ==
LOC: LBN 17:18
PROVIDERS: PCP Internal Medicine; Visit Provider Student in an Organized Health Care Education/Training Program
DX: U09.9 Post COVID-19 condition, unspecified (principal)
CPT/HCPCS: 82784; 82785; 82787; 83036; 83880

== ENCOUNTER 2021-06-13 13:14 | Outpatient (CLI) | payer OTHER, SELFPAY ==
--- NOTE | 2021-06-13 13:30 | RT.EKG_ITS ---
APPROVED REPORT Exam: Resting ECG Reason for Exam: new patient Patient Location: O HR:86 bpm ECG Measurements Heart Rate 86 AXIS ME 121 P 54 QRSd 94 QRS 31 QT 371 T 2 QTc 444 Conclusion Sinus rhythm...normal P axis, V-rate 50- 99 Ventricular premature complex...V complex w/ short R-R interval Borderline low voltage, extremity leads...all extremity leads <0.6mV Abnormal inferior Q waves...Qs add to 80 mS in II III aVF
== END 2021-06-13 13:15 | disposition home or self-care (01) ==
PROVIDERS: PCP Internal Medicine; Visit Provider Internal Medicine Cardiovascular Disease
DX: I10 Essential (primary) hypertension (principal); I25.10 Atherosclerotic heart disease of native coronary artery without angina pectoris; R07.9 Chest pain, unspecified
CPT/HCPCS: 93010

== ENCOUNTER 2021-07-03 08:52 | Outpatient (REF) | payer OTHER, SELFPAY ==
[2021-07-03 14:43] LABS: HCT 40.4 % (40.0-50.0); HGB 12.7 g/dL (13.5-17.5); MCH 27.3 pg (27.0-33.0); MCHC 31.4 % (32.0-36.0); MCV 87 fL (80-95); MPV 11.6 fL (8.0-11.0); Platelet Count 109 10^3/uL (130-400); RBC 4.65 10^6/uL (4.36-5.78); RDW 16.8 % (11.8-14.1); RDW-SD 53.5 fL; WBC 2.86 10^3/uL (4.4-10.8)
[2021-07-03 16:11] LABS: ALT 32 U/L (16-63); AST 34 U/L (15-37); Albumin 3.7 g/dL (3.4-5.0); Alkaline Phosphatase 129 U/L (46-116); Anion Gap 9.5 mmol/L (3-11); BUN 15 mg/dL (7-18); Bilirubin, Total 0.3 mg/dL (0.2-1.0); CO2 25.5 mmol/L (21.0-32.0); Calcium 8.7 mg/dL (8.5-10.1); Chloride 107 mmol/L (98-107); Glucose 90 mg/dL (74-106); Potassium 4.4 mmol/L (3.5-5.1); Sodium 142 mmol/L (136-145)
== END 2021-07-03 08:53 | disposition home or self-care (01) ==
LOC: NCHCN 08:52
PROVIDERS: PCP Internal Medicine; Visit Provider Family Medicine
DX: U09.9 Post COVID-19 condition, unspecified (principal); R62.7 Adult failure to thrive; J44.9 Chronic obstructive pulmonary disease, unspecified; I10 Essential (primary) hypertension
CPT/HCPCS: 80053; 85027

== ENCOUNTER 2021-07-11 15:02 | Outpatient (REF) | payer OTHER, SELFPAY | END 2021-07-11 15:03 | disposition home or self-care (01) | LOC: LBN 15:02 | PROVIDERS: PCP Internal Medicine; Visit Provider Family Medicine | DX: R06.09 Other forms of dyspnea (principal); R91.8 Other nonspecific abnormal finding of lung field; R05.8 Other specified cough | CPT/HCPCS: 87070; 87205 ==

== ENCOUNTER 2021-07-15 17:43 | Inpatient (IN) | payer OTHER, SELFPAY ==
[2021-07-15] VITALS (20 sets, daily range): BP systolic 93–137; BP diastolic 58–102; PULSE 79–133; RESP 2–32; TEMP 37.3–38.8; O2SAT 89–96
--- NOTE | 2021-07-15 17:42 | ED.GENADUL_ITS ---
Discharge Plan Disposition Patient Disposition: [facility] INPATIENT Condition: Stable Discharge Details Clinical Impression: COVID-19, Pneumonia, Thrombocytopenia, Hypoxia Admit Date/Time: 07/15/21 19:42 Admit Provider: Shiva Rain Attending Provider: Shiva Rain Primary Care Provider: Erwin Sahu ED Provider: Jemima Fish Discharge Data Discharge Date/Time-TO BE ENTERED AT DEPARTURE: 07/15/21 21:15 Medical Decision Making 1745 -- 61-year-old male with a history of COPD on chronic nasal cannula oxygen as needed, hypertension, coronary artery disease, with a h/o myocarditits, pneumonia, and acute respiratory failure with hypoxia secondary to COVID in February 2021 presents with generalized weakness, fatigue and vomiting and diarrhea for the past few hours. Heart rate 120s, temp 101.9 on arrival. Oxygen saturation 94% on his baseline 2 L nasal cannula oxygen. He currently denies any shortness of breath and he is speaking in full sentences. He appears generally fatigued but nontoxic with out meningeal signs. Abdomen soft nontender. Normal ENT exam. Differential diagnosis includes MRSA, COVID-19, UTI, pneumonia, viral syndrome. History and presentation does not appear consistent with meningitis, PE or ACS. Will place an IV, bolus IV fluids, screening labs, urinalysis, Fluvid, cxr and give IV toradol and reassess. 1899 --labs and imaging reviewed. Normal white blood cell count. Hemoglobin 12. Platelet 68 which is decreased compared to baseline. Magnesium 1.5, will replete. Troponin negative. Chest x-ray notes: IMPRESSION: 1. Hyperinflation consistent with emphysema. 2. Left mid to lower lung field mild opacification which may represent the multiple nodular foci which are evident on CT 07/04/2021. Cannot exclude an atypical infectious etiology. Recommend clinical correlation. 3. No pleural effusions. Patient has no report of cough but does endorse some shortness of breath today. He intermittently uses oxygen at home but not recently until today. Will cover for community-acquired pneumonia. Dose of Rocephin and Zithromax IV ordered. Case discussed with hospitalist who accepts patient for admission. 1999 -- Covid PCR resulted POSITIVE. Hospitalist informed. Blood pressure mildly hypertensive at 93/58. We will continue IV fluid hydration. We will add a lactate. Patient otherwise appears nontoxic and admits to improvement in symptoms. Medical Records Medical records reviewed: Yes I reviewed the patient's medical records. Imaging Data Radiologic Study: Radiologist's impression: XR Chest Exam date and time: 07/15/2021 6:08 PM Age: 61 years old Clinical indication: Other: Fever, R/O acute disease TECHNIQUE: Imaging protocol: XR of the chest. Views: 1 view. COMPARISON: CT CHEST WO 07/04/2021 8:26 AM FINDINGS: Lungs: Mild hyperinflation which could represent underlying emphysema. Mild opacification of the left lower lung field may represent an infiltrative process. A previous CT 07/04/2021 showed multiple nodules in the left lung base and lingular segment of the left upper lobe. This could be causing the opacification seen on plain film. No louisa lobar infiltrative changes. Right lung is clear. Pleural spaces: No pleural effusion. Heart/Mediastinum: Normal heart size. Bones/joints: Unremarkable. IMPRESSION: 1. Hyperinflation consistent with emphysema. 2. Left mid to lower lung field mild opacification which may represent the multiple nodular foci which are evident on CT 07/04/2021. Cannot exclude an atypical infectious etiology. Recommend clinical correlation. 3. No pleural effusions. Lab Data Lab results reviewed: Yes I reviewed the patient's lab results. Labs: Laboratory Tests Range/Units 07/15/21 07/15/21 07/15/21 18:05 18:17 18:17 WBC (4.4-10.8) 10^3/uL 4.67 RBC (4.36-5.78) 10^6/uL 4.52 Hgb (13.5-17.5) g/dL 12.3 L Hct (40.0-50.0) % 37.3 L MCV (80-95) fL 83 MCH (27.0-33.0) pg 27.2 MCHC (32.0-36.0) % 33.0 RDW (11.8-14.1) % 16.8 H Plt Count (130-400) 10^3/uL 68 L MPV (8.0-11.0) fL 9.6 Immature Gran % 0.4 Neutrophils % 78.6 Lymphocytes % 14.6 Monocytes % 4.9 Eosinophils % 1.3 Basophils % 0.2 Nucleated RBC % (0.0-0.3) % 0.0 Absolute Neutrophils (1.2-6.7) 10^3/uL 3.67 Absolute Lymphocytes (1.2-3.4) 10^3/uL 0.68 L Absolute Monocytes (0.1-0.8) 10^3/uL 0.23 Absolute Eosinophils (0.0-0.7) 10^3/uL 0.06 Absolute Basophils (0.0-0.2) 10^3/uL 0.01 RBC Morphology Normal Sodium (136-145) mmol/L 136 Potassium (3.5-5.1) mmol/L 3.5 Chloride (98-107) mmol/L 103 Carbon Dioxide (21.0-32.0) mmol/L 22.2 Anion Gap (3-11) mmol/L 10.8 BUN (7-18) mg/dL 14 Creatinine (0.70-1.30) mg/dL 1.2 Estimated GFR/1.73 m2 (mL/min/1.73m2) >= 60.00 Glucose (74-106) mg/dL 145 H Calcium (8.5-10.1) mg/dL 8.5 Magnesium (1.8-2.4) mg/dL 1.5 L Total Bilirubin (0.2-1.0) mg/dL 0.6 AST (15-37) U/L 55 H ALT (16-63) U/L 43 Alkaline Phosphatase (46-116) U/L 127 H Troponin I (<or=60) ng/L < 50 Total Protein (6.4-8.2) g/dL 8.3 H Albumin (3.4-5.0) g/dL 3.6 Procalcitonin ng/mL Urine Color (Yellow) Urine Clarity (Clear) Urine pH (5-8) Ur Specific Irwin (1.005-1.025) Urine Protein (Negative) mg/dL Urine Ketones (Negative) mg/dL Urine Blood (Negative) Urine Nitrite (Negative) Urine Bilirubin (Negative) Urine Urobilinogen (Up TO 0.2) EU/dL Ur Leukocyte Esterase (Negative) Urine RBC (0-2) HPF Urine WBC (0-5) HPF Ur Epithelial Cells (Negative) HPF Urine Crystals (Negative) HPF Urine Bacteria (Negative) HPF Urine Casts (Negative) LPF Urine Mucus (Negative) Ur Culture Indicated? Urine Glucose (Negative) mg/dL COVID-19 Source Nasopharynx SARS-CoV-2 (PCR) (Negative) Positive A Influenza Type A (PCR) (Negative) Negative Influenza Type B (PCR) (Negative) Negative RSV (PCR) (Negative) Negative Range/Units 07/15/21 07/15/21 18:17 19:18 WBC (4.4-10.8) 10^3/uL RBC (4.36-5.78) 10^6/uL Hgb (13.5-17.5) g/dL Hct (40.0-50.0) % MCV (80-95) fL MCH (27.0-33.0) pg MCHC (32.0-36.0) % RDW (11.8-14.1) % Plt Count (130-400) 10^3/uL MPV (8.0-11.0) fL Immature Gran % Neutrophils % Lymphocytes % Monocytes % Eosinophils % Basophils % Nucleated RBC % (0.0-0.3) % Absolute Neutrophils (1.2-6.7) 10^3/uL Absolute Lymphocytes (1.2-3.4) 10^3/uL Absolute Monocytes (0.1-0.8) 10^3/uL Absolute Eosinophils (0.0-0.7) 10^3/uL Absolute Basophils (0.0-0.2) 10^3/uL RBC Morphology Sodium (136-145) mmol/L Potassium (3.5-5.1) mmol/L Chloride (98-107) mmol/L Carbon Dioxide (21.0-32.0) mmol/L Anion Gap (3-11) mmol/L BUN (7-18) mg/dL Creatinine (0.70-1.30) mg/dL Estimated GFR/1.73 m2 (mL/min/1.73m2) Glucose (74-106) mg/dL Calcium (8.5-10.1) mg/dL Magnesium (1.8-2.4) mg/dL Total Bilirubin (0.2-1.0) mg/dL AST (15-37) U/L ALT (16-63) U/L Alkaline Phosphatase (46-116) U/L Troponin I (<or=60) ng/L Total Protein (6.4-8.2) g/dL Albumin (3.4-5.0) g/dL Procalcitonin ng/mL 0.1 Urine Color (Yellow) Yellow Urine Clarity (Clear) Clear Urine pH (5-8) 6.0 Ur Specific Irwin (1.005-1.025) >= 1.030 H Urine Protein (Negative) mg/dL 100 H Urine Ketones (Negative) mg/dL Negative Urine Blood (Negative) Trace-intact H Urine Nitrite (Negative) Negative Urine Bilirubin (Negative) Negative Urine Urobilinogen (Up TO 0.2) EU/dL 2.0 H Ur Leukocyte Esterase (Negative) Negative Urine RBC (0-2) HPF 5-10 H Urine WBC (0-5) HPF 0-2 Ur Epithelial Cells (Negative) HPF Rare Urine Crystals (Negative) HPF Negative Urine Bacteria (Negative) HPF Few Urine Casts (Negative) LPF Negative Urine Mucus (Negative) Negative Ur Culture Indicated? No Urine Glucose (Negative) mg/dL Negative COVID-19 Source SARS-CoV-2 (PCR) (Negative) Influenza Type A (PCR) (Negative) Influenza Type B (PCR) (Negative) RSV (PCR) (Negative) ECG Data Attestation: I personally reviewed and interpreted this ECG (s) as follows: Interpretation: Rate of 105, sinus, no STEMI. HPI General Mode of arrival: EMS . Date/Time Provider Initiated Documentation: 07/15/21 17:47 . Limitations to Documentation: no limitations . Information obtained by: patient . HPI Narrative: Patient is a 61-year-old male with a history of COPD, coronary artery disease, with a severe course of COVID in February 2021 resulting in respiratory failure with hypoxia and now chronically on nasal cannula oxygen as needed presents with generalized weakness, fatigue, vomiting and diarrhea that started a few hours ago. Patient states he felt fine earlier today. He states he has received his COVID-vaccine and a booster. He denies any known exposure to coronavirus. He states he vomited twice today which was mainly clear and food. He states he had 2 episodes of soft brown diarrhea. He denies any hematemesis or hematochezia. He denies sore throat, chest pain, shortness of breath, abdominal pain or urinary symptoms. Related Data Home Medications Medication Instructions Recorded Confirmed amlodipine 5 mg tablet 5 mg PO DAILY #30 tabs 07/25/18 07/15/21 albuterol sulfate 90 mcg/actuation 2 puff inhalation Q4H PRN PRN 03/03/21 07/15/21 aerosol inhaler acetaminophen 325 mg tablet (Aphen) 650 mg PO Q6H PRN fever or pain 03/06/21 07/15/21 #30 tabs ascorbic acid (vitamin C) 500 mg 1,000 mg PO BID #112 tabs 03/06/21 07/15/21 tablet (Vitamin C) cholecalciferol (vitamin D3) 25 2,000 units PO DAILY #30 tabs 03/06/21 07/15/21 mcg (1,000 unit) tablet pantoprazole 40 mg tablet,delayed 40 mg PO BID #60 tabs 05/24/21 07/15/21 release (Protonix) Oxygen #1 ea 06/06/21 06/13/21 fluticasone fur. 100 mcg-umeclid 1 inh inhalation DAILY #60 ea 06/07/21 07/15/21 62.5 mcg-vilant 25 mcg inhalat.powder (Trelegy Ellipta) fluticasone fur. 100 mcg-umeclid inhalation 07/15/21 62.5 mcg-vilant 25 mcg inhalat.powder (Trelegy Ellipta) venlafaxine 75 mg capsule,extended 1 cap PO DAILY 07/15/21 07/15/21 release 24 hr Previous Rx's Medication Instructions Recorded amlodipine 5 mg tablet 5 mg PO DAILY #30 tabs 07/25/18 acetaminophen 325 mg tablet (Aphen) 650 mg PO Q6H PRN fever or pain 03/06/21 #30 tabs ascorbic acid (vitamin C) 500 mg 1,000 mg PO BID #112 tabs 03/06/21 tablet (Vitamin C) cholecalciferol (vitamin D3) 25 2,000 units PO DAILY #30 tabs 03/06/21 mcg (1,000 unit) tablet pantoprazole 40 mg tablet,delayed 40 mg PO BID #60 tabs 05/24/21 release (Protonix) Oxygen #1 ea 06/06/21 fluticasone fur. 100 mcg-umeclid 1 inh inhalation DAILY #60 ea 06/07/21 62.5 mcg-vilant 25 mcg inhalat.powder (Trelegy Ellipta) Allergies Allergy/AdvReac Type Severity Reaction Status Date / Time nut - unspecified Allergy Severe Anaphylaxsi Verified 07/15/21 17:46 s latex Allergy Verified 07/15/21 17:46 General Stated Complaint: GenMedical LILI: 2 Review of Systems All systems reviewed & are unremarkable except as noted in HPI and below Constitutional Constitutional: Denies chills, Denies excessive sweating, Reports fatigue, Denies fever(s), Reports weakness and Denies weight loss Eyes Eyes: Reports system reviewed and no additional complaints, except as documented and Denies blurry vision ENT Ears, Nose, Mouth, and Throat: Denies vertigo, Denies dizziness, Denies otalgia, Denies nasal congestion, Denies sore throat and Denies throat swelling Cardiovascular Cardiovascular: Denies chest pain, Denies syncope, Denies rapid heart rate and Denies dyspnea Respiratory Respiratory: Denies chest congestion, Denies cough, Denies pain on inspiration and Denies dyspnea Gastrointestinal Gastrointestinal: Denies abdominal pain, Reports diarrhea and Reports vomiting Genitourinary Genitourinary: Denies hematuria, Denies dysuria and Denies flank pain Musculoskeletal Musculoskeletal: Denies back pain and Denies joint swelling Integumentary/Breasts Skin/Breast: Denies lesions and Denies rash Neurologic Neurologic: Denies behavioral changes, Denies confusion, Denies vertigo, Denies dizziness, Denies syncope, Denies localized weakness and Reports weakness Psychiatric Psychiatric: Denies behavioral changes, Denies confusion and Denies depression Endocrine Endocrine: Denies excessive sweating and Reports fatigue Hematologic/Lymphatic Hematologic/Lymphatic: Denies easy bruising and Denies lymphadenopathy Allergic/Immunologic Allergic/Immunologic: Denies throat swelling PFSH All Active Problems COVID-19 (Acute) Pneumonia (Acute) Thrombocytopenia (Chronic) Hypoxia (Acute) COVID-19 virus infection (Acute) COPD exacerbation (Acute) Hypoxemia (Acute) Pneumonia (Acute) Pulmonary nodules (Acute) Chest pain at rest (Acute) Coronary artery disease (Chronic) Activity of daily living alteration (Acute) Pulmonary infiltrate (Acute) 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) Respiratory failure with hypoxia (Acute) COPD (chronic obstructive pulmonary disease) (Chronic) RODRIGUEZ (dyspnea on exertion) (Acute) sat 76 after [address] to office Chronic obstructive pulmonary disease with hypoxia (Acute) Unexplained weight loss (Acute) Pneumonia 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 (Acute ~02/2021) Odynophagia (Acute) Adult failure to thrive (Acute) Vitamin D deficiency (Acute) Hypomagnesemia (Acute) 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) COVID (Acute) February 2019 Elevated troponin (Acute) Headache (Acute) Tobacco abuse (Acute) Medical History COPD (chronic obstructive pulmonary disease) HTN (hypertension) Restrictive airway disease Surgical History No significant past surgical history Social History Smoking/Tobacco Use Status: Current every day Smoking risk assessment performed?: Yes Alcohol Intake: current Alcohol Intake frequency: holidays/special occasions only Substance use type: does not use Do you feel safe at home: Yes Do you feel safe in your relationship?: Yes Exam Const General: cooperative and no acute distress Orientation: alert, awake and oriented x3 HENMT Head: normal to inspection Ears: hearing grossly normal bilaterally, external ears normal and TM's normal bilaterally General nose exam: external nose normal Face and sinus: normal facial exam Mouth: oral mucosae normal Teeth and gingiva: dentition normal Throat: posterior oropharynx normal Eyes General: appearance normal, both eyes and all related structures Eyelids: eyelids normal Pupils: PERRL EOM: EOM intact bilaterally Neck Neck: normal visual inspection Lymphatic: no lymphadenopathy noted Chest Chest: normal inspection of the chest Resp Effort & Inspection: normal respiratory effort and able to speak in complete sentences Auscultation: clear to auscultation bilaterally Cardio Rate: tachycardic Rhythm: regular rhythm GI Inspection: normal to inspection Palpation: soft, not firm, no guarding, no hepatosplenomegaly, no masses and nontender Auscultation: normal bowel sounds Back/Spine/Pelvis Back: no CVA tenderness Skin General skin exam: no rashes or lesions noted Neuro General: patient alert, patient awake and no meningeal signs Cognition: normal cognition Speech: speech normal Gait: normal gait Motor: muscle tone normal throughout Sensory Exam: no sensory deficits noted Extrem General: normal to inspection, full ROM and capillary refill normal Psych Appearance: grossly normal Mental Status: mental status grossly normal Speech and Movement: speech and movement normal Affect: normal affect Thought Process: normal
--- NOTE | 2021-07-15 17:45 | DI.RAD_ITS ---
Exam(s) XR PORTABLE CHEST AP EXAM: XR PORTABLE CHEST AP CLINICAL HISTORY: fever, r/o acute disease. TECHNIQUE: 2D digital imaging was performed. COMPARISON: CR,RF RF BARIUM SWALLOW from 05/24/[address] CHEST WO from 07/04/2021 FINDINGS: Single AP portable view. Heart size is upper normal. The mediastinum is not widened. Right lung is clear. Again noted are subtle nodular infiltrates laterally again noted in the left barbara ng base.. CT scan of 07/04/2021 revealed significant bilateral findings. Please see that separate r eport. IMPRESSION: Left lung base findings. Please see abnormal CT scan report of 07/04/2021. DATA REPOSITORY: RADIATION DOSE DELIVERED: All CT scans at this facility use at least one of these dose optimization techniques: automated exposure control; mA and/or kV adjustment per patient size (includes targeted e xams where dose is matched to clinical indication); or iterative reconstruction.
--- NOTE | 2021-07-15 18:00 | RT.EKG_ITS ---
APPROVED REPORT Exam: Resting ECG Reason for Exam: tachycardia Patient Location: E HR:105 bpm ECG Measurements Heart Rate [address] 151 P 76 QRSd 94 QRS 0 QT 330 T -4 QTc 436 Conclusion Sinus tachycardia...rate> 99 Indeterminate axis...QRS axis indeterminate Inferior infarct, old...Q >35mS, II III aVF. Sinus. No STEMI. I have reviewed and interpreted ECG and agree with software generated interpretation.
[2021-07-15 18:29] LABS: Abs Immature Grans 0.02 10^3/uL (0.0-0.06); Absolute Basophil Count 0.01 10^3/uL (0.0-0.2); Absolute Eosinophil Count 0.06 10^3/uL (0.0-0.7); Absolute Lymphocyte Count 0.68 10^3/uL (1.2-3.4); Absolute Monocyte Count 0.23 10^3/uL (0.1-0.8); Absolute Neutrophil Count 3.67 10^3/uL (1.2-6.7); Basophils % 0.2; Eosinophils % 1.3; HCT 37.3 % (40.0-50.0); HGB 12.3 g/dL (13.5-17.5); Immature Grans % 0.4; Lymphocytes % 14.6; MCH 27.2 pg (27.0-33.0); MCV 83 fL (80-95); MPV 9.6 fL (8.0-11.0); Monocytes % 4.9; Neutrophils % 78.6; RBC 4.52 10^6/uL (4.36-5.78); RDW 16.8 % (11.8-14.1); RDW-SD 49.7 fL; WBC 4.67 10^3/uL (4.4-10.8)
[2021-07-15] MEDS: Normal Saline Flush 10 ML SYR IVP ×2 (18:36→22:18)
[2021-07-15] MEDS: Ketorolac 30 MG/ML VIAL IVP (18:36)
[2021-07-15] MEDS: Normal Saline 1,000 ML 1000 ML IV (18:36)
[2021-07-15] MEDS: Ondansetron 4 MG/2 ML VIAL IVP (18:37)
--- NOTE | 2021-07-15 18:44 | DI.VRAD_ITS ---
PROCEDURE INFORMATION: Exam: XR Chest Exam date and time: 07/15/2021 6:08 PM Age: 61 years old Clinical indication: Other: Fever, R/O acute disease TECHNIQUE: Imaging protocol: XR of the chest. Views: 1 view. COMPARISON: CT CHEST WO 07/04/2021 8:26 AM FINDINGS: Lungs: Mild hyperinflation which could represent underlying emphysema. Mild opacification of the left lower lung field may represent an infiltrative process. A previous CT 07/04/2021 showed multiple nodules in the left lung base and lingular segment of the left upper lobe. This could be causing the opacification seen on plain film. No louisa lobar infiltrative changes. Right lung is clear. Pleural spaces: No pleural effusion. Heart/Mediastinum: Normal heart size. Bones/joints: Unremarkable. IMPRESSION: 1. Hyperinflation consistent with emphysema. 2. Left mid to lower lung field mild opacification which may represent the multiple nodular foci which are evident on CT 07/04/2021. Cannot exclude an atypical infectious etiology. Recommend clinical correlation. 3. No pleural effusions. Dictated and Authenticated by: Clyde Orellana MD. Ordering:ERIC Onofre MD
[2021-07-15 18:53] LABS: ALT 43 U/L (16-63); AST 55 U/L (15-37); Albumin 3.6 g/dL (3.4-5.0); Alkaline Phosphatase 127 U/L (46-116); Anion Gap 10.8 mmol/L (3-11); BUN 14 mg/dL (7-18); Bilirubin, Total 0.6 mg/dL (0.2-1.0); CO2 22.2 mmol/L (21.0-32.0); CREATININE 1.2 mg/dL (0.70-1.30); Calcium 8.5 mg/dL (8.5-10.1); Chloride 103 mmol/L (98-107); Glucose 145 mg/dL (74-106); Magnesium 1.5 mg/dL (1.8-2.4); Potassium 3.5 mmol/L (3.5-5.1); Sodium 136 mmol/L (136-145); Total Protein 8.3 g/dL (6.4-8.2); Troponin I < 50 ng/L (<or=60)
[2021-07-15 19:01] LABS: Platelet Count 68 10^3/uL (130-400)
[2021-07-15 19:02] LABS: Diff Comment PLT Morph Reviewed; RBC Morphology Normal
[2021-07-15 19:23] LABS: Bilirubin Negative (Negative); Blood Trace-intact (Negative); Clarity Clear (Clear); Glucose Negative (Negative); Ketones Negative (Negative); Leukocyte Esterase Negative (Negative); Nitrite Negative (Negative); Specific Gravity >= 1.030 (1.005-1.025)
[2021-07-15 19:27] LABS: Bacteria Few HPF (Negative); C & S Indicated? No; Casts Negative LPF (Negative); Crystals Negative HPF (Negative); Epithelial Cells Rare HPF (Negative); Mucus Negative (Negative); WBC 0-2 HPF (0-5)
[2021-07-15] MEDS: MAGNESIUM SULFATE 1 GM/100 ML BAG IVPB (19:29)
[2021-07-15 19:32] LABS: Influenza A PCR Negative (Negative); Influenza B PCR Negative (Negative); RSV PCR Negative (Negative)
[2021-07-15] MEDS: cefTRIAXone 1 GM/50 ML BAG IVPB (19:34)
[2021-07-15 19:57] LABS: COVID-19 PCR Positive (Negative); Source Nasopharynx
--- NOTE | 2021-07-15 19:59 | HPE_ITS ---
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 He has never fully recovered. He will be placed on IV Rocephin and Zithromax with supportive care for COVID-19 infection. Oxygen supplementation as needed. He has a DNR/DNI. (2) Hypoxemia: Start date: 07/15/21 Status: Acute Assessment and plan: Patient was oxygen dependent after his initial COVID-19 infection earlier this year but oxygen needs increased. Continue support with respiratory care and oxygen supplementation monitoring closely for decompensation. Patient is a DNR/DNI. (3) COPD exacerbation: Status: Acute Assessment and plan: Patient has underlying emphysema and COPD on inhalers but does seem to be slightly worse. He will be on dexamethasone for treatment of COVID-19 infection. Aggressive nebulizer treatments. Treat possible bacterial infection with secondary pneumonia possible. (4) COVID-19 virus infection: Start date: 07/15/21 Status: Acute Assessment and plan: Patient will be placed on remdesivir and dexamethasone. Consider Lovenox though he does have thrombocytopenia. He does have chronic liver disease which may be more COWAN being a nondrinker by history. (5) Thrombocytopenia: Status: Chronic Assessment and plan: Patient has chronic thrombocytopenia and if we need to use caution with anticoagulation with his acute COVID-19 infection. He has had a Where the proximal A. fib heart History of Present Illness History of Present Illness Chief Complaint: Weakness with nausea vomiting and d iarrhea, fever with positive COVID-19 Narrative: Patient is a 61-year-old male with a history of COPD, coronary artery disease, with a severe course of COVID in February 2021 admitted again less severe resulting in respiratory failure with hypoxia the first episode and now chronically on nasal cannula oxygen as needed presents with generalized weakness, fatigue, vomiting and diarrhea that started a few hours prior to presentation.? Patient states he felt fine earlier the day of admission.? He states he has received his J&J COVID-vaccine and a booster.? He denies any known exposure to coronavirus.? He states he vomited twice the day of admission which was mainly clear and food.? He states he had 2 episodes of soft brown diarrhea.? He denies any hematemesis or hematochezia.? He denies sore throat, chest pain, shortness of breath, abdominal pain or urinary symptoms. The patient did have a fever to the ED. Imaging did reveal continued infiltrates and patient was admitted for treatment of the acquired pneumonia having not been in the hospital for more than 2-month. His COVID-19 screen did come back positive therefore he does have another acute COVID-19 infection and will be treated accordingly with his pneumonia. The patient is a DNR/DNI after review of his CODE STATUS and he is chronically ill. I told her that his stated age. He does not drink alcohol but does have some chronic liver function abnormalities along with low platelet count. He denies any bleeding. Flu screen was negative. His WBC, procalcitonin and lactate were unrevealing for acute bacterial infection. He appears to be more affected by his viral infection which is recurrent. Review of Systems Narrative: 13 point review of systems otherwise unrevealing or stable. [facility] All Active Problems COVID-19 (Acute) Pneumonia (Acute) Thrombocytopenia (Chronic) Hypoxia (Acute) COVID-19 virus infection (Acute) COPD exacerbation (Acute) Hypoxemia (Acute) Pneumonia (Acute) Pulmonary nodules (Acute) Chest pain at rest (Acute) Coronary artery disease (Chronic) Activity of daily living alteration (Acute) Pulmonary infiltrate (Acute) 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) Respiratory failure with hypoxia (Acute) COPD (chronic obstructive pulmonary disease) (Chronic) RODRIGUEZ (dyspnea on exertion) (Acute) sat 76 [address] to office Chronic obstructive pulmonary disease with hypoxia (Acute) Unexplained weight loss (Acute) Pneumonia 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 (Acute ~02/2021) Odynophagia (Acute) Adult failure to thrive (Acute) Vitamin D deficiency (Acute) Hypomagnesemia (Acute) 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) COVID (Acute) February 2019 Elevated troponin (Acute) Headache (Acute) Tobacco abuse (Acute) Medical History COPD (chronic obstructive pulmonary disease) HTN (hypertension) Restrictive airway disease Surgical History No significant past surgical history Social History Smoking/Tobacco Use Status: Current every day Smoking risk assessment performed?: Yes Alcohol Intake: current Alcohol Intake frequency: holidays/special occasions only Substance use type: does not use Do you feel safe at home: Yes Do you feel safe in your relationship?: Yes Meds Allergies and Home Medications Allergies Allergy/AdvReac Type Severity Reaction Status Date / Time nut - unspecified Allergy Severe Anaphylaxsi Verified 07/15/21 17:46 s latex Allergy Verified 07/15/21 17:46 Home Medications Medication Instructions Recorded Confirmed Type amlodipine 5 mg tablet 5 mg PO DAILY #30 tabs 07/25/18 07/15/21 Rx albuterol sulfate 90 mcg/actuation 2 puff inhalation Q4H PRN PRN 03/03/21 07/15/21 History aerosol inhaler acetaminophen 325 mg tablet (Aphen) 650 mg PO Q6H PRN fever or pain 03/06/21 07/15/21 Rx #30 tabs ascorbic acid (vitamin C) 500 mg 1,000 mg PO BID #112 tabs 03/06/21 07/15/21 Rx tablet (Vitamin C) cholecalciferol (vitamin D3) 25 2,000 units PO DAILY #30 tabs 03/06/21 07/15/21 Rx mcg (1,000 unit) tablet pantoprazole 40 mg tablet,delayed 40 mg PO BID #60 tabs 05/24/21 07/15/21 Rx release (Protonix) Oxygen #1 ea 06/06/21 06/13/21 Rx fluticasone fur. 100 mcg-umeclid 1 inh inhalation DAILY #60 ea 06/07/21 07/15/21 Rx 62.5 mcg-vilant 25 mcg inhalat.powder (Trelegy Ellipta) fluticasone fur. 100 mcg-umeclid inhalation 07/15/21 History 62.5 mcg-vilant 25 mcg inhalat.powder (Trelegy Ellipta) venlafaxine 75 mg capsule,extended 1 cap PO DAILY 06/04/22 06/04/22 History release 24 hr Exam Narrative Exam Narrative: General: Patient appears older than stated age, unkempt, flattened affect with poor eye contact and very poor dentition with carious and missing teeth. He is alert and oriented at least person and place. He is in no acute distress. He is lying on his left side in the position. HEENT: Normocephalic, eyes with pupils equal and reactive to light symmetrically, extraocular movement intact and sclera anicteric. Oropharynx with dry mucosa and poor dentition as mentioned. Neck: Supple without JVD. Back: Kyphotic without CVA tenderness. Lungs: Bronchovesicular breath sound diffusely with increased coarse crackles on the left more than right hemithorax with normal expiratory phase and no significant expiratory wheeze. Fair aeration. No intercostal retractions. Abdomen: Scaphoid but appears to have been previously obese with weight loss, soft, nontender and no focal guarding. No palpable hepatosplenomegaly. Bowel sounds positive in all quadrants. Genitalia/rectal: Exam deferred. Extremities: Without clubbing, cyanosis or pitting edema with mild and nonpitting edema both lower extremities. Chronic skin changes with hair loss but no shiny atrophic skin and no ulcerations. Good capillary refill with pulses intact. Skin: Pale, warm and dry with fair turgor. Neuro: Cranial nerves II to XII grossly intact, no focalizing motor deficits. Psych: Flattened affect with depressed mood, patient is withdrawn. No abnormal thought processes. Remote and recent memory grossly intact. Results Imaging Imaging Studies: EXAM:? XR PORTABLE CHEST AP CLINICAL HISTORY: ? fever, r/o acute disease. ? TECHNIQUE:? 2D digital imaging was performed. COMPARISON:? CR,RF RF BARIUM SWALLOW from 05/24/[address] CHEST WO from 07/04/2021 FINDINGS: Single AP portable view. Heart size is upper normal.? The mediastinum is not widened. Right lung is clear.? Again noted are subtle nodular infiltrates laterally again noted in the left lung base..? CT scan of 07/04/2021 revealed significant bilateral findings.? Please see that separate report. IMPRESSION: Left lung base findings.? Please see abnormal CT scan report of 07/04/2021. Labs Result diagrams: 07/16/21 05:34 07/16/21 05:34 Labs: Laboratory Results - last 24 hr 07/15/21 07/15/21 07/15/21 18:05 18:17 18:17 WBC 4.67 RBC 4.52 Hgb 12.3 L Hct 37.3 L MCV 83 MCH 27.2 MCHC 33.0 RDW 16.8 H Plt Count 68 L MPV 9.6 Immature Gran % 0.4 Neutrophils % 78.6 Lymphocytes % 14.6 Monocytes % 4.9 Eosinophils % 1.3 Basophils % 0.2 Nucleated RBC % 0.0 Absolute Neutrophils 3.67 Absolute Lymphocytes 0.68 L Absolute Monocytes 0.23 Absolute Eosinophils 0.06 Absolute Basophils 0.01 RBC Morphology Normal Sodium 136 Potassium 3.5 Chloride 103 Carbon Dioxide 22.2 Anion Gap 10.8 BUN 14 Creatinine 1.2 Estimated GFR/1.73 m2 >= 60.00 Glucose 145 H Calcium 8.5 Magnesium 1.5 L Total Bilirubin 0.6 AST 55 H ALT 43 Alkaline Phosphatase 127 H Troponin I < 50 Total Protein 8.3 H Albumin 3.6 Urine Color Urine Clarity Urine pH Ur Specific [place] Urine Protein Urine Ketones Urine Blood Urine Nitrite Urine Bilirubin Urine Urobilinogen Ur Leukocyte Esterase Urine RBC Urine WBC Ur Epithelial Cells Urine Crystals Urine Bacteria Urine Casts Urine Mucus Ur Culture Indicated? Urine Glucose COVID-19 Source Nasopharynx SARS-CoV-2 (PCR) Positive A Influenza Type A (PCR) Negative Influenza Type B (PCR) Negative RSV (PCR) Negative 07/15/21 19:18 WBC RBC Hgb Hct MCV MCH MCHC RDW Plt Count MPV Immature Gran % Neutrophils % Lymphocytes % Monocytes % Eosinophils % Basophils % Nucleated RBC % Absolute Neutrophils Absolute Lymphocytes Absolute Monocytes Absolute Eosinophils Absolute Basophils RBC Morphology Sodium Potassium Chloride Carbon Dioxide Anion Gap BUN Creatinine Estimated GFR/1.73 m2 Glucose Calcium Magnesium Total Bilirubin AST ALT Alkaline Phosphatase Troponin I Total Protein Albumin Urine Color Yellow Urine Clarity Clear Urine pH 6.0 Ur Specific [place] >= 1.030 H Urine Protein 100 H Urine Ketones Negative Urine Blood Trace-intact H Urine Nitrite Negative Urine Bilirubin Negative Urine Urobilinogen 2.0 H Ur Leukocyte Esterase Negative Urine RBC 5-10 H Urine WBC 0-2 Ur Epithelial Cells Rare Urine Crystals Negative Urine Bacteria Few Urine Casts Negative Urine Mucus Negative Ur Culture Indicated? No Urine Glucose Negative COVID-19 Source SARS-CoV-2 (PCR) Influenza Type A (PCR) Influenza Type B (PCR) RSV (PCR) Last Vital Signs Temp 38.8 C H 06/04/22 17:41 Pulse 120 H 07/15/21 17:41 Resp 18 07/15/21 17:41 BP 131/91 H 07/15/21 17:41 Pulse Ox 91 L 07/15/21 17:41
[2021-07-15] MEDS: AZITHROMYCIN 500 MG in Normal Saline 250 ML 250 MG IVPB (20:23)
[2021-07-15 20:46] LABS: Prothrombin Time 10.2 sec (9.3-11.0)
[2021-07-15] MEDS: Normal Saline 500 ML IV (20:47)
[2021-07-15 21:15] LABS: Lactate 0.4 mmol/L (0.9-1.7)
[2021-07-15 21:24] LABS: Procalcitonin 0.1 ng/mL
[2021-07-15] MEDS: REMDESIVIR 200 MG in Normal Saline 250 ML 250 MG IVPB (22:18)
[2021-07-15] MEDS: Pantoprazole 40 MG TABCR PO (22:20)
[2021-07-15] MEDS: Acetaminophen 325 MG TAB 650 MG PO (22:20)
[2021-07-15] MEDS: Dexamethasone 10 MG/ML VIAL IVP (22:21)
[2021-07-15] MEDS: Ascorbic Acid 500 MG TAB 1000 MG PO (22:21)
[2021-07-15] MEDS: Albuterol/Ipratropium 3 ML UPD VIAL UPD (22:21)
[2021-07-15] MEDS: Water,Injection,Sterile 10 ML VIAL (22:40)
[2021-07-16] VITALS (11 sets, daily range): BP systolic 112–126; BP diastolic 67–75; PULSE 50–78; RESP 7–18; TEMP 36.4–36.7; O2SAT 96–100
[2021-07-16 06:08] LABS: Abs Immature Grans 0.05 10^3/uL (0.0-0.06); Absolute Basophil Count 0.01 10^3/uL (0.0-0.2); Absolute Lymphocyte Count 0.51 10^3/uL (1.2-3.4); Absolute Monocyte Count 0.14 10^3/uL (0.1-0.8); Absolute Neutrophil Count 5.25 10^3/uL (1.2-6.7); Basophils % 0.2; HCT 33.1 % (40.0-50.0); HGB 10.7 g/dL (13.5-17.5); Immature Grans % 0.8; Lymphocytes % 8.6; MCH 27.2 pg (27.0-33.0); MCHC 32.3 % (32.0-36.0); MCV 84 fL (80-95); MPV 9.7 fL (8.0-11.0); Monocytes % 2.3; Neutrophils % 88.1; RBC 3.93 10^6/uL (4.36-5.78); RDW 16.8 % (11.8-14.1); RDW-SD 51.4 fL; WBC 5.96 10^3/uL (4.4-10.8)
[2021-07-16 06:25] LABS: ALT 34 U/L (16-63); AST 30 U/L (15-37); Alkaline Phosphatase 110 U/L (46-116); Anion Gap 12.1 mmol/L (3-11); BUN 13 mg/dL (7-18); Bilirubin, Total 0.4 mg/dL (0.2-1.0); CO2 22.9 mmol/L (21.0-32.0); Calcium 7.8 mg/dL (8.5-10.1); Chloride 108 mmol/L (98-107); Glucose 168 mg/dL (74-106); Potassium 4.2 mmol/L (3.5-5.1); Sodium 143 mmol/L (136-145); Total Protein 7.3 g/dL (6.4-8.2)
[2021-07-16 06:31] LABS: Platelet Count 56 10^3/uL (130-400)
[2021-07-16] MEDS: Albuterol/Ipratropium 3 ML UPD VIAL UPD ×3 (08:31→20:26)
[2021-07-16] MEDS: Ascorbic Acid 500 MG TAB 1000 MG PO ×2 (08:48→20:26)
[2021-07-16] MEDS: Cholecalciferol (Vitamin D3) 1,000 UNIT TAB 2000 UNITS PO (08:48)
[2021-07-16] MEDS: Pantoprazole 40 MG TABCR PO ×2 (08:48→20:26)
[2021-07-16] MEDS: amLODIPine 5 MG TAB PO (08:48)
[2021-07-16] MEDS: Venlafaxine 75 MG CAPCR PO (08:48)
[2021-07-16] MEDS: Normal Saline Flush 10 ML SYR IVP ×3 (08:48→21:10)
[2021-07-16] MEDS: Tiotropium Bromide-Respimat 10 PUFF INH 2 PUFF IH (10:40)
[2021-07-16] MEDS: Budesonide/Formoterol 80/4.5 6.9 GM 60 PUFF INH IH ×2 (10:40→20:29)
--- NOTE | 2021-07-16 11:52 | PGE_ITS ---
Date of Service Date of service: 07/16/21 Time of Service: 10:53 Assessment and Plan Assessment and plan (1) Pneumonia: Status: Acute Assessment and plan: left basilar nodular infiltrates on CXR. Patient w/ low grade fevers and purulent sputum. Sputum culture sent. Continue Rocephin 1 gm along w/ azithromycin although the dose can be decreased to 250 mg daily. Encourage use of IS and acapella. continue bronchodilators however in setting of active COVID- 19 these should be MDI not updrafts. continue his LAMA/ICS/LABA (we do not have Trelegy so pharmacy has substituted Symbicort and Spiriva combination. (2) COVID-19 virus infection: Status: Acute Assessment and plan: treat w/ decadron and Remdesivir. (3) COPD (chronic obstructive pulmonary disease): Assessment and plan: as above (4) Pulmonary nodules: Status: Acute Assessment and plan: recent CT of chest from 07/04 has shown interval development of multifocal bilateral pulmonary nodules. I will have Dr. Brown consult on him as he is known to her and she has been following him in the pulmonary clinic. (5) Post-acute sequelae of COVID-19 (PASC): Status: Acute Assessment and plan: patient should follow up in pulmonary rehab and post covid clinic w/ Dr. Brown upon discharge. (6) Thrombocytopenia: Status: Chronic Assessment and plan: unclear etiology. platelets were normal as of 05/22 but started to decline as of 07/03 when they were 109,000 but on admission last night were 68,000 and today are 56,000. INR is normal and LFT are normal. He also has normocytic/ normochromic anemia w/ increased RDW. I will check periopheral blood smear, folate, B12, TSH, HCV, HIV and check him for DIC (d-dimer, fibrinogen, FDP), this may be secondary to his COVID-19. Lovenox was held secondary to the declining platelets. Subjective Subjective Interval history since last seen: Patient has COPD (on home oxygen at 1 lpm) and has been admitted w/ CAP and recurrent COVID-19 infection. He had prior infections of COVID-19 in February and has been vaccinated w/ J&J along w/ booster. This morning he is coughing productive thick yellow mucous. He was started on Ceftriaxone and Azithromycin for CAP. He is afebrile today, T max 38.4 yesterday. He is weak and his oxygen saturation is 98% on 2 LPM. He has been using his IS and acapella. Exam Narrative Exam Narrative: Orlin is lying in bed, no acute distress, not using accessory respiratory muscles Lungs: some bibasilar rhonchi and expiratory wheezing Heart: RRR Abdomen; thin, nondistended, nontender Extremities: warm, no cyanosis, normal pulses. Objective Last Vital Signs Temp 36.4 C L 07/16/21 08:51 Pulse 60 07/16/21 08:51 Resp 18 07/16/21 08:51 BP 117/72 07/16/21 08:51 Pulse Ox 98 07/16/21 08:51 Laboratory Results - last 24 hr 07/15/21 07/15/21 07/15/21 18:05 18:17 18:17 WBC 4.67 RBC 4.52 Hgb 12.3 L Hct 37.3 L MCV 83 MCH 27.2 MCHC 33.0 RDW 16.8 H Plt Count 68 L MPV 9.6 Immature Gran % 0.4 Neutrophils % 78.6 Lymphocytes % 14.6 Monocytes % 4.9 Eosinophils % 1.3 Basophils % 0.2 Nucleated RBC % 0.0 Absolute Neutrophils 3.67 Absolute Lymphocytes 0.68 L Absolute Monocytes 0.23 Absolute Eosinophils 0.06 Absolute Basophils 0.01 RBC Morphology Normal PT INR VBG Lactate Sodium 136 Potassium 3.5 Chloride 103 Carbon Dioxide 22.2 Anion Gap 10.8 BUN 14 Creatinine 1.2 Estimated GFR/1.73 m2 >= 60.00 Glucose 145 H Calcium 8.5 Magnesium 1.5 L Total Bilirubin 0.6 AST 55 H ALT 43 Alkaline Phosphatase 127 H Troponin I < 50 Total Protein 8.3 H Albumin 3.6 Procalcitonin Urine Color Urine Clarity Urine pH Ur Specific [place] Urine Protein Urine Ketones Urine Blood Urine Nitrite Urine Bilirubin Urine Urobilinogen Ur Leukocyte Esterase Urine RBC Urine WBC Ur Epithelial Cells Urine Crystals Urine Bacteria Urine Casts Urine Mucus Ur Culture Indicated? Urine Glucose COVID-19 Source Nasopharynx SARS-CoV-2 (PCR) Positive A Influenza Type A (PCR) Negative Influenza Type B (PCR) Negative RSV (PCR) Negative 07/15/21 07/15/21 07/15/21 18:17 19:18 20:27 WBC RBC Hgb Hct MCV MCH MCHC RDW Plt Count MPV Immature Gran % Neutrophils % Lymphocytes % Monocytes % Eosinophils % Basophils % Nucleated RBC % Absolute Neutrophils Absolute Lymphocytes Absolute Monocytes Absolute Eosinophils Absolute Basophils RBC Morphology PT 10.2 INR 1.0 VBG Lactate Sodium Potassium Chloride Carbon Dioxide Anion Gap BUN Creatinine Estimated GFR/1.73 m2 Glucose Calcium Magnesium Total Bilirubin AST ALT Alkaline Phosphatase Troponin I Total Protein Albumin Procalcitonin 0.1 Urine Color Yellow Urine Clarity Clear Urine pH 6.0 Ur Specific [place] >= 1.030 H Urine Protein 100 H Urine Ketones Negative Urine Blood Trace-intact H Urine Nitrite Negative Urine Bilirubin Negative Urine Urobilinogen 2.0 H Ur Leukocyte Esterase Negative Urine RBC 5-10 H Urine WBC 0-2 Ur Epithelial Cells Rare Urine Crystals Negative Urine Bacteria Few Urine Casts Negative Urine Mucus Negative Ur Culture Indicated? No Urine Glucose Negative COVID-19 Source SARS-CoV-2 (PCR) Influenza Type A (PCR) Influenza Type B (PCR) RSV (PCR) 07/15/21 07/16/21 07/16/21 21:01 05:34 05:34 WBC 5.96 RBC 3.93 L Hgb 10.7 L Hct 33.1 L MCV 84 MCH 27.2 MCHC 32.3 D RDW 16.8 H Plt Count 56 L MPV 9.7 Immature Gran % 0.8 Neutrophils % 88.1 Lymphocytes % 8.6 Monocytes % 2.3 Eosinophils % 0.0 Basophils % 0.2 Nucleated RBC % 0.0 Absolute Neutrophils 5.25 Absolute Lymphocytes 0.51 L Absolute Monocytes 0.14 Absolute Eosinophils 0.00 Absolute Basophils 0.01 RBC Morphology PT INR VBG Lactate 0.4 L Sodium 143 Potassium 4.2 Chloride 108 H Carbon Dioxide 22.9 Anion Gap 12.1 H BUN 13 Creatinine 1.0 Estimated GFR/1.73 m2 >= 60.00 Glucose 168 H Calcium 7.8 L Magnesium 2.0 Total Bilirubin 0.4 AST 30 ALT 34 Alkaline Phosphatase 110 Troponin I Total Protein 7.3 Albumin 3.0 L Procalcitonin Urine Color Urine Clarity Urine pH Ur Specific [place] Urine Protein Urine Ketones Urine Blood Urine Nitrite Urine Bilirubin Urine Urobilinogen Ur Leukocyte Esterase Urine RBC Urine WBC Ur Epithelial Cells Urine Crystals Urine Bacteria Urine Casts Urine Mucus Ur Culture Indicated? Urine Glucose COVID-19 Source SARS-CoV-2 (PCR) Influenza Type A (PCR) Influenza Type B (PCR) RSV (PCR)
--- NOTE | 2021-07-16 13:56 | INITIAL_ITS ---
- If Service Date Differs Date of service: 07/16/21 Time of Service: 13:56 Care Management Initial Assess REASON FOR HOSPITALIZATION:: Pneumonia - Covid positive PAST MEDICAL HISTORY/PAST SURGICAL HISTORY:: All Active Problems . COVID-19 (Acute). Pneumonia (Acute). Thrombocytopenia (Chronic). Hypoxia (Acute). COVID-19 virus infection (Acute). COPD exacerbation (Acute). Hypoxemia (Acute). Pneumonia (Acute). Pulmonary nodules (Acute). Chest pain at rest (Acute). Coronary artery disease (Chronic). Activity of daily living alteration (Acute). Pulmonary infiltrate (Acute). 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). Respiratory failure with hypoxia (Acute). COPD (chronic obstructive pulmonary disease) (Chronic). RODRIGUEZ (dyspnea on exertion) (Acute). sat 76 [address] to office. Chronic obstructive pulmonary disease with hypoxia (Acute). Unexplained weight loss (Acute). Pneumonia 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 (Acute ~02/2021). Odynophagia (Acute). Adult failure to thrive (Acute). Vitamin D deficiency (Acute). Hypomagnesemia (Acute). 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 COVID (Acute). February 2019. Elevated troponin (Acute). Headache (Acute). Tobacco abuse (Acute). Medical History . COPD (chronic obstructive pulmonary disease). HTN (hypertension). Restrictive airway disease. Surgical History . No significant past surgical history PREVIOUS FUNCTIONAL STATUS/SOCIAL/FAMILY SUPPORTS:: Orlin lives in [facility]. He is employed at [employer]. He is independent at baseline. CURRENT FUNCTIONAL STATUS:: LATRICE was unable to meet with Orlin today as he is on Covid precautions. Several attempts to reach him by phone were unsuccessful. Per provider, Orlin has been oxygen dependent since his initial episode of Covid in February. He is chronically ill with COPD and emphysema. He has been requiring 2L of oxygen and is maintaining his O2 saturation in the mid to upper 90's. Orlin had a fever of 38.8 last evening but has been afebrile all day today. ADVANCE DIRECTIVES:: none on file Has patient been provided with info about the portal/API?: Yes Did the patient sign up for the portal?: No CODE STATUS:: DNR/DNI INSURANCE COVERAGE / FINANCIAL ISSUES:: [facility] CURRENT HOME/COMMUNITY SERVICES/EQUIPMENT:: home oxygen PRIMARY CARE PHYSICIAN:: Erwin Sahu POTENTIAL DISCHARGE NEEDS:: follow up appointment with PCP PATIENT/FAMILY EDUCATION NEEDS:: Review discharge instructions, limitations and plan to follow up with community providers. ask me three. TRANSPORTATION:: via private vehicle PLAN:: Anticipate Orlin will discharge home with no new [facility] services when medically cleared by provider. He will transport via private vehicle and follow up with his community providers. CM will follow and assess for ongoing discharge concerns.
[2021-07-16] MEDS: cefTRIAXone 1 GM/50 ML BAG IVPB (20:18)
[2021-07-16] MEDS: Normal Saline 500 ML 30 ML IV (20:19)
[2021-07-16] MEDS: AZITHROMYCIN 500 MG in Normal Saline 250 ML 250 MG IVPB (20:57)
[2021-07-16] MEDS: REMDESIVIR 100 MG in Normal Saline 250 ML 250 MG IVPB (21:09)
[2021-07-16] MEDS: Dexamethasone 10 MG/ML VIAL IVP (21:09)
--- NOTE | 2021-07-16 21:41 | NUR.NOTE ---
pt in tub trying to fix the drain . assured her that we have a maintenance dept to do that. Nursing Note:
[2021-07-17] VITALS (9 sets, daily range): BP systolic 116–137; BP diastolic 69–81; PULSE 55–66; RESP 16–20; TEMP 36–36.7; O2SAT 97–985
[2021-07-17 06:17] LABS: Abs Immature Grans 0.02 10^3/uL (0.0-0.06); Absolute Lymphocyte Count 0.42 10^3/uL (1.2-3.4); Absolute Monocyte Count 0.13 10^3/uL (0.1-0.8); Absolute Neutrophil Count 4.04 10^3/uL (1.2-6.7); HCT 33.5 % (40.0-50.0); HGB 10.7 g/dL (13.5-17.5); Immature Grans % 0.4; Lymphocytes % 9.1; MCH 27.2 pg (27.0-33.0); MCHC 31.9 % (32.0-36.0); MCV 85 fL (80-95); MPV 11.5 fL (8.0-11.0); Monocytes % 2.8; Neutrophils % 87.7; RBC 3.94 10^6/uL (4.36-5.78); RDW 17.1 % (11.8-14.1); RDW-SD 52.5 fL; WBC 4.61 10^3/uL (4.4-10.8)
[2021-07-17 06:27] LABS: Anion Gap 10.5 mmol/L (3-11); BUN 13 mg/dL (7-18); CO2 25.5 mmol/L (21.0-32.0); Calcium 8.5 mg/dL (8.5-10.1); Chloride 109 mmol/L (98-107); Glucose 156 mg/dL (74-106); Potassium 4.2 mmol/L (3.5-5.1); Sodium 145 mmol/L (136-145)
[2021-07-17 06:32] LABS: PTT Activated 27.5 sec (21.0-27.5); Prothrombin Time 10.2 sec (9.3-11.0)
[2021-07-17 06:41] LABS: Diff Comment PLT Morph Reviewed; Platelet Count 66 10^3/uL (130-400)
[2021-07-17 06:50] LABS: D-Dimer 762 ng/mlFEU (<500)
[2021-07-17 06:58] LABS: Folate 18.9 ng/mL (8.6-20.0); LDH 200 U/L (85-227); TSH (W/Ref FT4) 1.26 uIU/mL (0.36-3.74); Vitamin B12 204 pg/mL (193-986)
[2021-07-17] MEDS: Ascorbic Acid 500 MG TAB 1000 MG PO ×2 (08:04→21:51)
[2021-07-17] MEDS: Venlafaxine 75 MG CAPCR PO (08:04)
[2021-07-17] MEDS: Tiotropium Bromide-Respimat 10 PUFF INH 2 PUFF IH (08:05)
[2021-07-17] MEDS: Budesonide/Formoterol 80/4.5 6.9 GM 60 PUFF INH IH ×2 (08:05→21:53)
[2021-07-17] MEDS: Pantoprazole 40 MG TABCR PO ×2 (08:05→21:50)
[2021-07-17] MEDS: Cholecalciferol (Vitamin D3) 1,000 UNIT TAB 2000 UNITS PO (08:05)
[2021-07-17] MEDS: amLODIPine 5 MG TAB PO (08:05)
[2021-07-17] MEDS: Ipratropium/Albuterol 4 GM 120 PUFF INH IH ×4 (08:15→21:53)
--- NOTE | 2021-07-17 09:26 | PDOC.CMPRO ---
- If Service Date Differs Date of service: 07/17/21 Time of Service: 09:30 Care Management Progress Note S/O: Orlin is on Covid isolation and CM spoke with pt via phone. Orlin shares that he is on 1L NC and is reportedly feeling much better. He has been up ambulating in his room and feels ready to discharge home. He has home O2 at baseline, through [facility]. Orlin does not want [facility] services at this time. He is staying with his sister and brother in law and they are supportive. A: 61 year old male admitted to [facility] on 07/15/21 for Pneumonia, COPD with hypoxia, post covid-19 infection. P: Anticipate Orlin will discharge home with no new [facility] services when medically cleared by provider. He will transport via private vehicle and follow up with his community providers. CM will follow and assess for ongoing discharge concerns.
--- NOTE | 2021-07-17 10:32 | PT.INIE ---
Date of service: 07/17/21 Time of Service: 10:32 PT Notes Visit Reasons: PNEAUMONIA, COPD W/ HYPOXEMIA, POST COVID19 INF. Physical Therapy Inpatient Initial Evaluation Date: 07/17/2021 Referring Doctor: Daquan Meyer MD PT Orders: PT CONSULT: Exacerbation Chronic Cond Precautions: Fall. Standard. Activity as tolerated. On 2 L of oxygen per minute via NC. Patient Profile/Admitting Diagnosis: Patient is a 61-year-old male patient who presented to the ED on 07/15/2021 due to generalized weakness, fatigue, vomitting, diarrhea, and nausea. Patient is diagnosed with COVID-19 infection, pneumonia, hypoxemia, COPD, and thrombocytopenia. PMHX: All Active Problems? COVID-19 (Acute) Pneumonia (Acute) Thrombocytopenia (Chronic) Hypoxia (Acute) COVID-19 virus infection (Acute) COPD exacerbation (Acute) Hypoxemia (Acute) Pneumonia (Acute) Pulmonary nodules (Acute) Chest pain at rest (Acute) Coronary artery disease (Chronic) Activity of daily living alteration (Acute) Pulmonary infiltrate (Acute) 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) Respiratory failure with hypoxia (Acute) COPD (chronic obstructive pulmonary disease) (Chronic) RODRIGUEZ (dyspnea on exertion) (Acute) sat 76 after [address] lot to officeChronic obstructive pulmonary disease with hypoxia (Acute) Unexplained weight loss (Acute) Pneumonia 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 (Acute ~02/2021) Odynophagia (Acute) Adult failure to thrive (Acute) Vitamin D deficiency (Acute) Hypomagnesemia (Acute) 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 COPD (chronic obstructive pulmonary disease) HTN (hypertension) Restrictive airway disease Surgical History? No significant past surgical history Social History/Home Situation: Lives in a fully furnished basement of his sister's house. There are 15 steps with rails on both sides to the basement. Independent with all aspects of ADLs prior to admission. On 1 L of oxygen per minute via NC prior to admission due to COPD. Equipment Owned/DME: [facility] Subjective: Agreeable to PT consult. Feels a lot better than he did 2 days ago. Hopeful that he can go home as soon as he is safe to do so. Objective: General Observation: Seated at edge of bed. Oxygen supplementation at 2 L/min via NC. Mental Status: Alert and oriented as to person, place, time, and purpose. Able to pay attention, focus, and respond appropriately. Pain: None reported Vital Signs: Saturating at above 90% at rest on 1 L/min. Requires up to 3 L of oxygen to stay above 88% during ambulation activity of about 75 feet inside room without assistive device. ROM: Right Upper Extremity: Shoulder Flexion WFL. Shoulder abduction WFL. Elbow flexion WFL. Wrist flexion WFL. Functional opening and closing of hand WFL. Left Upper Extremity: Shoulder Flexion WFL. Shoulder abduction WFL. Elbow flexion WFL. Wrist flexion WFL. Functional opening and closing of hand WFL. Right Lower Extremity: Hip flexion WFL. Hip abduction WFL. Knee flexion WFL. Ankle dorsiflexion WFL. Ankle plantarflexion WFL. Left Lower Extremity: Hip flexion WFL. Hip abduction WFL. Knee flexion WFL. Ankle dorsiflexion WFL. Ankle plantarflexion WFL. Strength: Right Upper Extremity: Shoulder flexors 4/5. Shoulder abductors 4/5. Elbow flexors 5/5. Elbow extensors 4/5. System Operation Superintendent strong. Left Upper Extremity: Shoulder flexors 4/5. Shoulder abductors 4/5. Elbow flexors 5/5. Elbow extensors 4/5. System Operation Superintendent strong. Right Lower Extremity: Hip flexors 4-/5. Hip abductors 4-/5. Knee flexors 5/5. Knee extensors 4-/5. Ankle dorsiflexors 4-/5. Ankle plantarflexors 5/5. Left Lower Extremity: Hip flexors 4-/5. Hip abductors 4-/5. Knee flexors 5/5. Knee extensors 4-/5. Ankle dorsiflexors 4-/5. Ankle plantarflexors 5/5. Bed Mobility/Transfers: Rolling independent Supine to sit independent Sit to supine independent Sit to stand independent Stand to sit independent Bed to reclining chair independent Reclining chair to bed independent Gait: Instructed patient with level surface ambulation of 75 feet with independence. Aminata decreased other solorzano gait pattern is unremarkable. Desaturated to 81% on 2 L/min but was able to resaturate back to 90% with increase in oxygen to 3 L. THERA EX: DBE with bilateral shoulder flexion/extension x 5 while in standing, 2 sets DBE with bilateral shoulder horizontal abduction and adduction x 5 while in standing, 2 sets Balance: Static Sitting: Normal Dynamic Sitting: Normal Static Standing: Normal Dynamic Standing: Normal Special Tests: Mobility Limitations Standardized Measure [facility] AM-PAC 6 clicks Basic Mobility Inpatient Short Form: Raw Score: 0 CMS Score: 24% deficit Informed Consent/Education: Patient was instructed in purpose of PT consult and plan of care. Assessment: Patient is independent inside his room using no assistive device. Had minimal shortness of breath and desaturation to 81% on 2 L but was able to recover with increase to 3 L. Was reduced to 1 L per minute and was saturating back up to 91% on 1 L at rest after recovery. Patient was instructed with chest expansion exercises and of walking in room for about 5 minutes each time every 2-3 hours to facilitate with his overall recovery. Patient is [place] a 55202 moderate complexity based on the following: History: 61-year-old female with past medical history as indicated above Examination: Demonstrable impairment in strength, balance, and mobility level with underlying impairments and functional limitations as exhibited above as well as deficit score of 0% utilizing the [facility] Mobility Inpatient Short Form Presentation: Evolving Decision Makin moderate complexity Goals: N/A. PT evaluation and one treatment session only for functional mobility training and HEP instruction. Plan of Care/Treatment Plan: N/A. PT evaluation and one treatment session only for functional mobility training and HEP instruction. DISCHARGE RECOMMENDATIONS: Home when medically cleared by hospitalist. No equipment needs at this time. TREATMENT CODE/TIME: 71217 x 20 minutes, 96081 x 17 minutes beginning at 10:32 AM. Thank you for the opportunity to participate in the care of this patient. Keyanna Fry PT, DPT, CLT [facility] [place], [place]
--- NOTE | 2021-07-17 15:46 | W.PM.PROGNOT ---
Date of Service Date of service: 07/17/21 Time of Service: 14:46 Assessment and Plan Assessment and plan (1) Pneumonia: Status: Acute Assessment and plan: left basilar nodular infiltrates on CXR. Patient presented w/ low grade fevers and purulent sputum. Sputum culture sent but is growing only NOF. Continue Rocephin 1 gm along w/ azithromycin 250 mg daily. Encourage use of IS and acapella. continue bronchodilators however in setting of active COVID-19 these should be MDI not updrafts. continue his LAMA/ICS/LABA (we do not have Trelegy so pharmacy has substituted Symbicort and Spiriva combination. Urine Strep antigen and Legionella antigen pending. Sputum for mycoplasma PCR pending. He is now at his baseline oxygen requirements of 1 lpm. I would like him to stay for completion of his Remdesivir since this is his third bout of COVID-19 despite being vaccinated. (2) COVID-19 virus infection: Status: Acute Assessment and plan: treat w/ decadron and Remdesivir. Today will be his third dose (he had 200 mg in the ER and today is 2 of 4 doses of 100 mg). (3) COPD (chronic obstructive pulmonary disease): Assessment and plan: as above (4) Pulmonary nodules: Status: Acute Assessment and plan: recent CT of chest from 07/04 has shown interval development of multifocal bilateral pulmonary nodules. I briefly spoke w/ Dr. Brown about him this moring. I have not put a formal consult in to her but indicated that he is being treated for pneumonia and has coincidental COVID infection manifested by his diarrhea. She indicated that she has been following his case remotely. As he is improving from both his diarrhea and his breathing, I do not think that he can see her in the clinic for follow up. She has been aware of his pulmonary nodules and will follow up as outpatient. (5) Post-acute sequelae of COVID-19 (PASC): Status: Acute Assessment and plan: patient should follow up in pulmonary rehab and post covid clinic w/ Dr. Brown upon discharge. (6) Thrombocytopenia: Status: Chronic Assessment and plan: unclear etiology. platelets were normal as of 05/22 but started to decline as of 07/03 when they were 109,000 but on admission last night were 68,000 and today are 56,000. Repeat level has stabilized at 66,000. No exposure to heparin products this admission. Enoxaparin was ordered on admission but not given. This may be ITP in response to his COVID-19 infection. He is not having any active bleeing. It does not appear to be a case of DIC. At this point will monitor. (7) DVT prophylaxis: Status: Acute Assessment and plan: in light of thrombocytopenia; not candidate for enoxaparin/heparin. use SCD Subjective Subjective Interval history since last seen: Orlin is feeling much better. Diarrhea has improved. He is not short of breath today. No chest pains, abdominal pains, nausea or vomting. Exam Narrative Exam Narrative: Orlin looks better today. He is much more alert and animated he does not have that toxic appearance that he had yesterday. He states he feels much better. He is not short of breath he is able to carry on prolonged conversations with me. Lungs with some scattered bibasilar rhonchi and some end expiratory wheezes. Upper loredo are clear. Heart is regular rate and rhythm Abdomen soft and nontender Extremities without peripheral cyanosis or edema Objective Last Vital Signs Temp 36.0 C L 07/17/21 15:42 Pulse 60 07/17/21 15:42 Resp 16 07/17/21 15:42 BP 131/69 07/17/21 15:42 Pulse Ox 100 07/17/21 15:42 Laboratory Results - last 24 hr 07/17/21 07/17/21 07/17/21 05:20 05:20 05:20 WBC 4.61 RBC 3.94 L Hgb 10.7 L Hct 33.5 L MCV 85 MCH 27.2 MCHC 31.9 L RDW 17.1 H Plt Count 66 L MPV 11.5 H Immature Gran % 0.4 Neutrophils % 87.7 Lymphocytes % 9.1 Monocytes % 2.8 Eosinophils % 0.0 Basophils % 0.0 Nucleated RBC % 0.0 Absolute Neutrophils 4.04 Absolute Lymphocytes 0.42 L Absolute Monocytes 0.13 Absolute Eosinophils 0.00 Absolute Basophils 0.00 PT 10.2 INR 1.0 APTT 27.5 Fibrinogen D-Dimer 762 H Sodium Potassium Chloride Carbon Dioxide Anion Gap BUN Creatinine Estimated GFR/1.73 m2 Glucose Calcium Lactate Dehydrogenase 200 Vitamin B12 204 Folate 18.9 TSH 1.26 07/17/21 07/17/21 05:20 05:20 WBC RBC Hgb Hct MCV MCH MCHC RDW Plt Count MPV Immature Gran % Neutrophils % Lymphocytes % Monocytes % Eosinophils % Basophils % Nucleated RBC % Absolute Neutrophils Absolute Lymphocytes Absolute Monocytes Absolute Eosinophils Absolute Basophils PT INR APTT Fibrinogen Cancelled D-Dimer Sodium 145 Potassium 4.2 Chloride 109 H Carbon Dioxide 25.5 Anion Gap 10.5 BUN 13 Creatinine 1.0 Estimated GFR/1.73 m2 >= 60.00 Glucose 156 H Calcium 8.5 Lactate Dehydrogenase Vitamin B12 Folate TSH
[2021-07-17 20:31] LABS: Legionella Ag Detection Urine Negative (Negative)
[2021-07-17] MEDS: Azithromycin 250 MG TAB PO (21:51)
[2021-07-17] MEDS: cefTRIAXone 1 GM/50 ML BAG IVPB (21:52)
[2021-07-17] MEDS: Normal Saline Flush 10 ML SYR IVP (21:52)
[2021-07-17] MEDS: Dexamethasone 10 MG/ML VIAL IVP (21:52)
[2021-07-17] MEDS: REMDESIVIR 100 MG in Normal Saline 250 ML 250 MG IVPB (21:53)
[2021-07-17 22:54] LABS: Fibrinogen 356 mg/dL (171-384)
[2021-07-18] VITALS (8 sets, daily range): BP systolic 122–145; BP diastolic 71–82; PULSE 52–83; RESP 14–19; TEMP 36.3–36.6; O2SAT 95–100
[2021-07-18 07:04] LABS: Abs Immature Grans 0.03 10^3/uL (0.0-0.06); Absolute Lymphocyte Count 0.36 10^3/uL (1.2-3.4); Absolute Monocyte Count 0.16 10^3/uL (0.1-0.8); Absolute Neutrophil Count 3.62 10^3/uL (1.2-6.7); HCT 34.7 % (40.0-50.0); HGB 11.2 g/dL (13.5-17.5); Immature Grans % 0.7; Lymphocytes % 8.6; MCH 27.3 pg (27.0-33.0); MCHC 32.3 % (32.0-36.0); MCV 85 fL (80-95); Monocytes % 3.8; Neutrophils % 86.9; RDW 17.2 % (11.8-14.1); RDW-SD 52.8 fL; WBC 4.17 10^3/uL (4.4-10.8)
[2021-07-18 07:24] LABS: Diff Comment Diff Reviewed; RBC Morphology Normal
[2021-07-18 07:25] LABS: Platelet Count 91 10^3/uL (130-400)
[2021-07-18] MEDS: Ipratropium/Albuterol 4 GM 120 PUFF INH IH ×4 (07:33→21:48)
[2021-07-18] MEDS: Tiotropium Bromide-Respimat 10 PUFF INH 2 PUFF IH (07:33)
[2021-07-18] MEDS: Budesonide/Formoterol 80/4.5 6.9 GM 60 PUFF INH IH ×2 (07:33→21:48)
[2021-07-18] MEDS: Cholecalciferol (Vitamin D3) 1,000 UNIT TAB 2000 UNITS PO (08:01)
[2021-07-18] MEDS: Ascorbic Acid 500 MG TAB 1000 MG PO ×2 (08:01→21:44)
[2021-07-18] MEDS: amLODIPine 5 MG TAB PO (08:02)
[2021-07-18] MEDS: Pantoprazole 40 MG TABCR PO ×2 (08:02→21:44)
[2021-07-18] MEDS: Venlafaxine 75 MG CAPCR PO (08:02)
[2021-07-18] MEDS: Normal Saline Flush 10 ML SYR IVP ×2 (08:03→21:45)
--- NOTE | 2021-07-18 09:15 | PDOC.CMPRO ---
- If Service Date Differs Date of service: 07/18/21 Time of Service: 09:15 Care Management Progress Note S/O: Orlin is being treated with IV ABX, Steroids and Remdisivir. Orlin is 97% on 1L NC and is reportedly feeling much better. He has been up ambulating in his room. He has home O2 at baseline, through [facility]. Orlin does not want CHH services at this time. He is staying with his sister and brother in law and they are supportive. A: 61 year old male admitted to [facility] on 07/15/21 for Pneumonia, COPD with hypoxia, post covid-19 infection. P: Anticipate Orlin will discharge home with no new CHH services when medically cleared by provider. He will transport via private vehicle and follow up with his community providers. CM will follow and assess for ongoing discharge concerns.
[2021-07-18 10:31] LABS: HIV-1/2 Ag & Ab Screen Reactive (Negative)
[2021-07-18 11:46] LABS: HBs Antibody, Qual Positive (See Note); HBs Antibody, Quant 35.7 mIU/mL (See Note); Hepatitis B Core Antibody Positive (Negative); Hepatitis B surface Ag Negative (Negative); Hepatitis C Ab w Rflx HCV PCR Negative (Negative)
--- NOTE | 2021-07-18 18:28 | W.PM.PROGNOT ---
Date of Service Date of service: 07/18/21 Time of Service: 17:35 Assessment and Plan Assessment and plan (1) Pneumonia: Status: Acute Assessment and plan: Continue azithromycin/ceftriaxone empirically. Continue Symbicort/spiriva. Encourage pulmonary toilet. Continue treatment for COVID-19. (2) COVID-19 virus infection: Status: Acute Assessment and plan: continue decadron and Remdesivir (day 4/5). Back to his home o2 requirement of 1L of O2 by NC. (3) COPD (chronic obstructive pulmonary disease): Assessment and plan: In mild acute exacerbation. as above (4) Pulmonary nodules: Status: Acute Assessment and plan: multifocal bilateral pulmonary nodules on CT - will need outpatient follow up. (5) Post-acute sequelae of COVID-19 (PASC): Status: Acute Assessment and plan: F/u as outpatient (6) Thrombocytopenia: Status: Chronic Assessment and plan: Improving. Possibly due to COVID-19 and/or abx. Continue to hold chemical dvt ppx. (7) DVT prophylaxis: Status: Acute Assessment and plan: SCDs. Chemical DVt ppx is contraindicated due to thrombocytopenia Subjective Subjective Interval history since last seen: Feels better. On 1 L of O2. Would like to go home. Denies dizziness, chest pain, shortness of breath, nausea. Agrees to stay to get 5th dose of remdesivir tomorrow night. Exam Narrative Exam Narrative: General: Pleasant middle-aged male who is A&Ox3, NAD, no dyspnea/tachypnea/cough/cyanosis HEENT: EOMI, MMM Heart: RRR,no m/r/g Lungs: subtle crackles at B bases Abdomen: soft, nontender, nondistneded Extremities: no edema BLEs Objective Last Vital Signs Temp 36.6 C 07/18/21 15:23 Pulse 78 07/18/21 15:43 Resp 16 07/18/21 15:23 BP 139/82 07/18/21 15:23 Pulse Ox 98 07/18/21 15:23 Laboratory Results - last 24 hr 07/16/21 07/17/21 07/17/21 12:55 05:20 05:20 WBC RBC Hgb Hct MCV MCH MCHC RDW Plt Count MPV Immature Gran % Neutrophils % Lymphocytes % Monocytes % Eosinophils % Basophils % Nucleated RBC % Absolute Neutrophils Absolute Lymphocytes Absolute Monocytes Absolute Eosinophils Absolute Basophils RBC Morphology Fibrinogen Hep Bs Antigen Negative Hep Bs Antibody Positive Hep Bs Antibody, Quant 35.7 Hep B Core Total Ab Positive A Hepatitis C Antibody Negative HIV 1&2 Ag/Ab, 4th Gen Reactive A Urine Legionella Ag Negative 07/17/21 07/18/21 12:22 06:30 WBC 4.17 L RBC 4.10 L Hgb 11.2 L Hct 34.7 L MCV 85 MCH 27.3 MCHC 32.3 RDW 17.2 H Plt Count 91 L MPV Immature Gran % 0.7 Neutrophils % 86.9 Lymphocytes % 8.6 Monocytes % 3.8 Eosinophils % 0.0 Basophils % 0.0 Nucleated RBC % 0.0 Absolute Neutrophils 3.62 Absolute Lymphocytes 0.36 L Absolute Monocytes 0.16 Absolute Eosinophils 0.00 Absolute Basophils 0.00 RBC Morphology Normal Fibrinogen 356 Hep Bs Antigen Hep Bs Antibody Hep Bs Antibody, Quant Hep B Core Total Ab Hepatitis C Antibody HIV 1&2 Ag/Ab, 4th Gen Urine Legionella Ag
[2021-07-18] MEDS: Azithromycin 250 MG TAB PO (21:44)
[2021-07-18] MEDS: Dexamethasone 10 MG/ML VIAL IVP (21:45)
[2021-07-18] MEDS: REMDESIVIR 100 MG in Normal Saline 250 ML 250 MG IVPB (22:15)
[2021-07-19] VITALS (7 sets, daily range): BP systolic 137–153; BP diastolic 80–86; PULSE 47–67; RESP 12–18; TEMP 36.2–36.6; O2SAT 96–99
[2021-07-19 00:07] LABS: Streptococcus Pneumoniae Ag, U Negative (Negative)
[2021-07-19] MEDS: Tiotropium Bromide-Respimat 10 PUFF INH 2 PUFF IH (07:31)
[2021-07-19] MEDS: Ipratropium/Albuterol 4 GM 120 PUFF INH IH ×4 (07:32→19:15)
[2021-07-19] MEDS: Budesonide/Formoterol 80/4.5 6.9 GM 60 PUFF INH IH ×2 (07:34→19:14)
[2021-07-19] MEDS: amLODIPine 5 MG TAB PO (07:55)
[2021-07-19] MEDS: Ascorbic Acid 500 MG TAB 1000 MG PO ×2 (07:56→19:14)
[2021-07-19] MEDS: Venlafaxine 75 MG CAPCR PO (07:58)
[2021-07-19] MEDS: Pantoprazole 40 MG TABCR PO ×2 (07:58→19:14)
[2021-07-19] MEDS: Cholecalciferol (Vitamin D3) 1,000 UNIT TAB 2000 UNITS PO (07:58)
[2021-07-19] MEDS: Normal Saline Flush 10 ML SYR IVP (08:02)
--- NOTE | 2021-07-19 09:31 | PDOC.CMPRO ---
- If Service Date Differs Date of service: 07/19/21 Time of Service: 09:31 Care Management Progress Note S/O: Orlin is being treated with IV Steroids and Remdisivir. Orlin is 99% on 1L NC and is reportedly feeling much better. He has been up ambulating in his room. He has home O2 at baseline, through [facility]. Orlin does not want CHH services at this time. He is staying with his sister and brother in law and they are supportive. A: 61 year old male admitted to [facility] on 07/15/21 for Pneumonia, COPD with hypoxia, post covid-19 infection. P: Anticipate Orlin will discharge home with no new CHH services when medically cleared by provider. He will transport via private vehicle and follow up with his community providers. CM will follow and assess for ongoing discharge concerns.
--- NOTE | 2021-07-19 10:45 | W.PM.DS.N ---
Date of service: 07/19/21 Time of Service: 10:46 DS: Diagnosis Discharge Diagnosis (1) COVID-19 virus infection: Status: Acute (2) Pneumonia: Status: Acute (3) COPD (chronic obstructive pulmonary disease): Asessment and Plan: in mild acute exacerbation (4) Pulmonary nodules: Status: Acute (5) Post-acute sequelae of COVID-19 (PASC): Status: Acute (6) Thrombocytopenia: Status: Chronic Discharge Plan Disposition Patient Disposition: HOME Condition: Stable Discharge Details Reason For Visit: Pneumonia,COPD w/Hypoxemia,COVID-19 infection Admit Date/Time: 07/15/21 19:42 Admit Provider: Shiva Rain Attending Provider: Shiva Rain Primary Care Provider: Erwin Sahu Hospital Course Hospital Course: Mr Daniel is a 61 year old male with PMHx of oxygen-dependent COPD, normally on 1L of O2 prn, as well as h/o two prior episodes of COVID-19 with 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 He was saturating 89% on RA. For this he was treated with dexamethasone, remdesivir, antibiotics (azithromycin and ceftriaxone), scheduled and prn bronchodilators, pulmonary toileting with significant improvement of symptoms. He is being discharged home today after completion of his 5th dose of remdesivir and ceftriaxone. He is being discharged home with a steroid taper and follow up with his PCP and pulmonology. He is back to his baseline O2 requirement per ambulatory pulse ox testing. He will need to follow up with Dr Brown for his bilateral pulmonary nodules. He will need a CBC in 1 week to monitor his platelets as they were somewhat decreased during this acute COVID-19. His platelets were recovering by the time of discharge (91, up from 56). Care for patient as well as completion of his discharge summary on day of discharge took 45 minutes. Home Meds and New Rx's Prescriptions: New prednisone 10 mg tablet See Rx Instructions .ROUTE .COMPLEX Qty: 26 0RF Rx Instructions: 40 mg daily x 2 days, then 30 mg daily x 3 days, then 20 mg daily x 3 days, then 10 mg daily x 3 days, then stop Continued (DME) Oxygen Tank See Rx Instructions .Route Qty: 1 0RF Rx Instructions: 1 LPM with exertion Trelegy Ellipta 100-62.5-25 mcg blister with device 1 inh inhalation DAILY Qty: 60 12RF pantoprazole [Protonix] 40 mg tablet,delayed release (DR/EC) 40 mg PO BID Qty: 60 12RF amlodipine 5 mg Tablet 5 mg PO DAILY Qty: 30 0RF albuterol sulfate 90 mcg/actuation HFA aerosol inhaler 2 puff INHALATION Q4H PRN PRN Rx Instructions: 2 PUFFS Q4-6H PRN ascorbic acid (vitamin C) [Vitamin C] 500 mg Tablet 1,000 mg PO BID Qty: 112 0RF cholecalciferol (vitamin D3) 25 mcg (1,000 unit) Tablet 2,000 units PO DAILY Qty: 30 0RF acetaminophen [Aphen] 325 mg tablet 650 mg PO Q6H PRN (Reason: fever or pain) Qty: 30 0RF venlafaxine 75 mg capsule,extended release 24hr 1 cap PO DAILY Label Comments: TAKE ONE CAPSULE BY MOUTH EVERY DAY Discharge Instructions Instructions: How to Stop Smoking (DC), COPD (Chronic Obstructive Pulmonary Disease) (ED), Bacterial Pneumonia (ED), COVID-19 (Coronavirus Disease 2019) (DC) Additional Instructions: You must stop smoking. Finish your steroid taper as prescribed. Continue to self-isolate for 5 more days. Follow up with your PCP in 1-[address] Brown as scheduled. Bloodwork in 2 weeks. Return to the hospital with any fever, bleeding, chest pain, worsening shortness of breath. Referrals: Erwin Sahu MD [Primary Care Provider] - Elizabeth Brown MD [ [facility] STAFF PHYSICIAN] - Activity:: Activity as Tolerated Equipment/Supplies:: No Equipment Needed Diet:: As Tolerated Discharge Orders Discharge Orders: Discharge Order (Routine); Ordered 07/19/21 Ordered By: Leida Barrera Other Ambulatory Orders: Complete Blood Count w/Diff (Routine) Timeframe: 2 Weeks Facility: [facility] - Location: Laboratory Outpatient - [facility] Ordered By: Leida Barrera DS: Summary Time Spent with Patient providing and/or coordinating discharge services: Greater than 30 minutes Status at Discharge Functional status at discharge: independent ambulation Overall status at discharge: patient is back to baseline Mental Status: mental status grossly normal Speech and Movement: speech and movement normal Mood: congruent mood Affect: normal affect Exam Psych Mental Status: mental status grossly normal Speech and Movement: speech and movement normal Mood: congruent mood Affect: normal affect DS: Data Vitals/I&O Vitals and I&O: Vital Signs Temperature 36.2 C L 07/19/21 07:54 Temperature Source Tympanic 07/19/21 07:54 Pulse 56 L 07/19/21 07:54 Pulse Rhythm Regular 07/19/21 09:32 Pulse 87 07/15/21 19:50 Respiratory Rate 16 07/19/21 07:54 Respiratory Effort 07/19/21 09:32 Respiratory Depth Normal 07/19/21 09:32 Respiratory Pattern Normal 07/19/21 09:32 Blood Pressure 153/86 H 07/19/21 07:54 Blood Pressure Mean 67 07/15/21 19:46 Pulse Oximetry 99 07/19/21 07:54 Oxygen Delivery Method Nasal Cannula 07/19/21 07:54 Oxygen Flow Rate 1 07/19/21 07:54 Pain Level 0 07/19/21 07:54 Comment 07/16/21 12:00 Intake & Output 07/18/21 07/18/21 07/19/21 11:59 23:59 11:59 Intake Total 300 / 300 Output Total 800 / 800 450 / 450 Balance -800 / -500 300 / -500 -450 / -450 Weight 75.6 kg Intake: IV 300 / 300 Output: Urine 800 / 800 450 / 450 Other: Urine Color Yellow Yellow Urine Appearance Clear Clear Urine Odor Normal Normal Comment pT voids independently in the toilet. pT voids independently in the toilet. Voiding Methods Toilet Toilet Urinal Data Completed and Pending Completed studies during hospitalization [Text1]: CXR 07/15/21: Left lung base findings.? Please see abnormal CT scan report of 07/04/2021. Labs on day of discharge: Labs from last 24 hours 07/17/21 07/17/21 07/17/21 05:20 05:20 05:20 Hep Bs Antigen Negative Hep Bs Antibody Positive Hep Bs Antibody, Quant 35.7 Hep B Core Total Ab Positive A Hepatitis C Antibody Negative HIV-1 Viral Bands Obs Pending HIV-2 Ab Bands Present Pending HIV 1&2 Ag/Ab, 4th Gen Reactive A HIV-1 Ab Diff Pending HIV-2 Ab Diff Pending Ur Strep pneumoniae Ag 07/16/21 12:55 Hep Bs Antigen Hep Bs Antibody Hep Bs Antibody, Quant Hep B Core Total Ab Hepatitis C Antibody HIV-1 Viral Bands Obs HIV-2 Ab Bands Present HIV 1&2 Ag/Ab, 4th Gen HIV-1 Ab Diff HIV-2 Ab Diff Ur Strep pneumoniae Ag Negative Preliminary micro results at discharge 07/16/21 14:53 Sputum Culture - Preliminary Sputum Normal Esther PFSH All Active Problems (Updated 07/17/21 @ 20:52 by Daquan Meyer) DVT prophylaxis (Acute) COVID-19 (Acute) Pneumonia (Acute) Thrombocytopenia (Chronic) Hypoxia (Acute) COVID-19 virus infection (Acute) COPD exacerbation (Acute) Hypoxemia (Acute) Pneumonia (Acute) Pulmonary nodules (Acute) Chest pain at rest (Acute) Coronary artery disease (Chronic) Activity of daily living alteration (Acute) Pulmonary infiltrate (Acute) 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) Respiratory failure with hypoxia (Acute) COPD (chronic obstructive pulmonary disease) (Chronic) RODRIGUEZ (dyspnea on exertion) (Acute) sat [address] to office Chronic obstructive pulmonary disease with hypoxia (Acute) Unexplained weight loss (Acute) Pneumonia 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 (Acute ~02/2021) Odynophagia (Acute) Adult failure to thrive (Acute) Vitamin D deficiency (Acute) Hypomagnesemia (Acute) 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) COVID (Acute) February 2019 Elevated troponin (Acute) Headache (Acute) Tobacco abuse (Acute) Medical History COPD (chronic obstructive pulmonary disease) HTN (hypertension) Restrictive airway disease Surgical History No significant past surgical history Social History Smoking/Tobacco Use Status: Current every day Smoking risk assessment performed?: Yes Alcohol Intake: current Alcohol Intake frequency: holidays/special occasions only Substance use type: does not use Do you feel safe at home: Yes Do you feel safe in your relationship?: Yes
--- NOTE | 2021-07-19 11:42 | PDOC.CMDIS ---
- If Service Date Differs Date of service: 07/19/21 Time of Service: 11:42 LACE Index Scoring Tool - Questions: Length of Stay (in days): 4 - 6 Acuity (Admit via E.D.?): Yes Comorbidities: Chronic Pulmonary Disease E.D. Visits: 3 - Answers: Total Score: 12 Risk of Readmission: High Risk Care Management Discharge Reason for Hospitalization: Pneumonia - Covid positive Discharge Plan: Discharge home via private vehicle with family. Continue to self isolate for 5 more days and finish steroid taper as prescribed. New RX for prednisone was sent to [facility]. Follow up with your PCP in 1-2 weeks and Pulmonolgy as scheduled. Follow discharge plan of care as prescribed. Patient/Family Education Needs: Review discharge instructions, limitations, medications and plan to follow up with community providers. ask me three.
[2021-07-19] MEDS: REMDESIVIR 100 MG in Normal Saline 250 ML 250 MG IVPB (17:45)
[2021-07-19] MEDS: Azithromycin 250 MG TAB PO (19:14)
[2021-07-20 00:15] LABS: Mycoplasma Pneumoniae PCR Negative; Specimen source sputum
[2021-07-20 13:29] LABS: Fungitell Qualitative Negative (Negative); Fungitell Quantitative Value <31 pg/mL (<60 pg/mL)
[2021-07-21 08:51] LABS: HIV 1 Ab Diff Positive (Negative); HIV 1 Band(s) See Comments
[2021-07-21 08:52] LABS: HIV 2 Ab Diff Negative (Negative)
== END 2021-07-19 19:25 | disposition home or self-care (01) | DRG 177 ==
LOC: ER 20:40 → MS 21:14
PROVIDERS: Internal Medicine; Admitting Provider Family Medicine; Emergency Provider Physician Assistant; PCP Family Medicine; Visit Provider Family Medicine
DX: U07.1 COVID-19 (principal); J18.9 Pneumonia, unspecified organism; J44.0 Chronic obstructive pulmonary disease with (acute) lower respiratory infection; J44.1 Chronic obstructive pulmonary disease with (acute) exacerbation; Z99.81 Dependence on supplemental oxygen; I10 Essential (primary) hypertension; I25.10 Atherosclerotic heart disease of native coronary artery without angina pectoris; R53.1 Weakness; I95.9 Hypotension, unspecified; Z66 Do not resuscitate; R09.02 Hypoxemia; D69.6 Thrombocytopenia, unspecified; K75.81 Nonalcoholic steatohepatitis (NASH); R19.7 Diarrhea, unspecified; R11.2 Nausea with vomiting, unspecified; R91.8 Other nonspecific abnormal finding of lung field; U09.9 Post COVID-19 condition, unspecified; R63.4 Abnormal weight loss; E55.9 Vitamin D deficiency, unspecified; R62.7 Adult failure to thrive; R74.8 Abnormal levels of other serum enzymes; F17.210 Nicotine dependence, cigarettes, uncomplicated
CPT/HCPCS: 36415; 80048; 80053; 84145; 85384; 86701; 86702; 86704; 86706; 86803; 87340; 87389; 87449; 87637; 93005; 94618; 94640; 97162; 97530; 71045; 81003; 81015; 82607; 82746; 83605; 83615; 83735; 84443; 84484; 85025; 85379; 85610; 85730; 87070; 87205; 87581; 87899; 93010; 99223; 99232; 99239; J0248; J0456; J0696; J1100; J1885; J2405; J3475; J3490; J7620

== ENCOUNTER 2021-08-08 02:59 | Outpatient (CLI) | payer OTHER, SELFPAY | END 2021-08-08 03:00 | disposition home or self-care (01) | LOC: RT 02:59 | PROVIDERS: PCP Family Medicine; Visit Provider Pediatrics Pediatric Rheumatology ==

== ENCOUNTER 2021-09-04 04:41 | Outpatient (CLI) | payer OTHER, SELFPAY | END 2021-09-04 04:42 | disposition home or self-care (01) | LOC: RT 04:41 | PROVIDERS: PCP Family Medicine; Visit Provider Pediatrics Pediatric Rheumatology | DX: J44.9 Chronic obstructive pulmonary disease, unspecified (principal); Z02.71 Encounter for disability determination | CPT/HCPCS: 94618 ==

== ENCOUNTER → 2021-09-11 00:45 | Outpatient (CLI) | payer OTHER, SELFPAY ==
--- NOTE | 2021-09-11 06:30 | DI.NM_ITS ---
APPROVED REPORT Exam: Pharmacologic Patient Location: Out-Patient Room/Bed: Stress Nurse: Jocelyn Callaway RN Ordering Provider:LIV FOSTER, Contact Number: [phone] BMI: 23.42 Baseline Rhythm: Sinus Rhythm Comment: t wave inversion in aVL Indications: CAD, Atypical chest pain Medical History Medical History: COVID 19 x3, PNA, thrombocytopenia, COPD, CAD, Hx resp failure and hypoxia, adult fa ilure to thrive, hypomagnesium, mycarditis d/t covid, tobacco abuse, htn, reactive airway disease Cardiac Medications: Pantoprazole, Amlodipine, Albuterol, Fluticasone, oxygen Allergies: Latex Cardiac Risk Factors: +family history, HTN, CVD, COPD, Ashtma, active tobacco use Previous Cardiac Procedures: None Pretest Chest Pain Characteristics: None Exercise History: Sedentary Physical Disabilities: Shorntess of breath at baseline Lung Sounds: Clear- diminished at bilateral bases Heart Sounds: s1/s2, regular Stress Test Details Test: Pharmacologic stress was paired with low level exercise. Reason for pharmacologic stress test: physical limitation. Nuclear Acquisition: Rest Tc-99m/Stress Tc-99m 1 day Rest Isotope: Tc-99m Sestamibi. Dose: 10 Date: 09/11/2021 Injection Time: 09:00 Stress Isotope: Tc-99m Sestamibi. Dose: 31 Date: 09/11/2021 Injection Time: 10:55 HR Resting HR Supine: 69 bpm Max Heart Rate (APMHR): 161.592130 bpm Resting HR Standin bpm Target HR (85% APMHR): 136.172257 bpm Max HR Achieved: 130 bpm % of APMHR: 80.75 Recovery HR: 92 bpm HR response to stress: Normal HR response to stress BP Resting BP Supine: 160/90 mmHg Resting BP Standin/98 mmHg Max BP: 164/92 mmHg Recovery BP: 134/90 mmHg BP response to stress: Normal blood pressure response to stress. ECG Resting ECG: Sinus Rhythm Ectopy: None Comment: T wave inversion in aVL Stress ECG: Sinus Tachycardia ST Change: No significant ST segment changes noted Arrhythmia: PVC's, multiple couplets Comment: Increased ectopy towards end of exercise Recovery ECG: Sinus Rhythm, , Clear, Sinus Rhythm, Sinus Bradycardia, Sinus Rhythm, normal EKG Recovery ST Change: No significant ST segment changes noted Recovery Arrhythmia: PVC's, few couplets Clinical Reason for Termination: Stopped by RN due to increasing ectopy and patient tolerance for walking Stress Symptoms: Mild shortness of breath Exercise duration: 3 min45 sec Exercise capacity: 1.84 METs Angina Score: None Rate Pressure Product: [id number] Stress ECG Conclusion 1. Resting electrocardiogram was within normal limits 2. Patient underwent testing using combination of low-level exercise and pharmacologic stress with re gadenoson 3. Heart rate achieved was 80% of maximal predicted for age 4. Electrocardiographic portion of the test was nondiagnostic due to inadequate heart rate 5. PVCs were noted 6. See MPI report Stress Test Summary STAGE HR BP SpO2 Symptoms NOTES Supine 69 160/90 98% Shortness of breath at rest, mild Standing 86 140/98 98% 1 min post Lexiscan injection 121 148/78 98% mild shortness of breath 3 min post Lexiscan injection 129 164/92 98% mild shortness of breath 6 min post Lexiscan injection 92 134/90 98% mild shortness of breath Stress test paired with low level exercise, treadmill speed 1.1 mph, 0% grade.Lexiscan injection occu red after 2 minutes of walking on the treadmill. Patient reported shortness of breath as mild befo re test while at rest. Once Lexiscan injection occured patient continued to describe shortness of wilfredo ath through test as mild. MPI Conclusion Normal myocardial perfusion, no evidence of ischemia or prior infarction Ejection fraction visually is within the range of normal, with normal wall motion Radiologist Interpretation Radiologist agrees with Train Clerk's Interpretation. Radiologist Interpretation by: Julius Sarmiento MD Interpretation Date/Time: 09/11/2021 16:15:28
[2021-09-11] MEDS: Regadenoson 0.4 MG/5 ML SYR IVP (11:23)
== END ==
PROVIDERS: PCP Family Medicine; Visit Provider Internal Medicine Cardiovascular Disease
DX: I25.10 Atherosclerotic heart disease of native coronary artery without angina pectoris (principal); R07.9 Chest pain, unspecified
CPT/HCPCS: 78452; 93017; J2785

== ENCOUNTER 2021-09-14 03:42 | Outpatient (CLI) | payer OTHER, SELFPAY ==
[2021-09-14] MEDS: Albuterol HFA 18 GM 200 PUFF INH IH (16:10)
[2021-09-14] MEDS: Inhaler, Assist Device 1 EACH MC (16:10)
--- NOTE | 2021-09-15 09:41 | W.PFT ---
Date of service: 09/14/21 Time of Service: 14:49 Pulmonary Function Test Result Requesting Provider Kevin Indications: COPD Interpretation Spirometry: There is moderate airflow limitation. There is a significant bronchodilator response. Lung Volumes: There is some air trapping. Diffusion Capacity: The diffusion is low. Airway Pressure: Increased airways resistance Impression Moderate airflow limitation with air trapping and a reduced diffusion. This could represent COPD with emphysema. There is also a significant bronchidilator response. Note: When compared to 08/19/18, the lung function is stable, however the diffusion has significantly declined. Clinical Correlation therefore is recommended.
== END 2021-09-14 03:43 | disposition home or self-care (01) ==
LOC: RT 03:42
PROVIDERS: PCP Family Medicine; Visit Provider Student in an Organized Health Care Education/Training Program
DX: R94.2 Abnormal results of pulmonary function studies (principal); J44.9 Chronic obstructive pulmonary disease, unspecified; R05.8 Other specified cough; R06.09 Other forms of dyspnea; Z87.891 Personal history of nicotine dependence; Z86.16 Personal history of COVID-19
CPT/HCPCS: 94060; 94726; 94729

== ENCOUNTER 2021-10-09 17:09 | Outpatient (CLI) | payer SELFPAY | END 2021-10-09 17:10 | disposition home or self-care (01) | LOC: CCC 02-25 17:12 | PROVIDERS: PCP Family Medicine; Visit Provider Nurse Practitioner Family | DX: B20 Human immunodeficiency virus [HIV] disease (principal); Z79.899 Other long term (current) drug therapy | CPT/HCPCS: 90471; 90632; 99214 ==

== ENCOUNTER 2021-10-12 04:57 | Outpatient (CLI) | payer OTHER, SELFPAY ==
[2021-10-12 09:14] LABS: Abs Immature Grans 0.01 10^3/uL (0.0-0.06); Absolute Basophil Count 0.03 10^3/uL (0.0-0.2); Absolute Eosinophil Count 0.23 10^3/uL (0.0-0.7); Absolute Lymphocyte Count 1.29 10^3/uL (1.2-3.4); Absolute Monocyte Count 0.39 10^3/uL (0.1-0.8); Absolute Neutrophil Count 2.94 10^3/uL (1.2-6.7); Basophils % 0.6; Eosinophils % 4.7; HGB 14.1 g/dL (13.5-17.5); Immature Grans % 0.2; Lymphocytes % 26.4; MCH 29.1 pg (27.0-33.0); MCV 91 fL (80-95); MPV 8.8 fL (8.0-11.0); Neutrophils % 60.1; Platelet Count 191 10^3/uL (130-400); RBC 4.85 10^6/uL (4.36-5.78); RDW 16.3 % (11.8-14.1); RDW-SD 53.9 fL; WBC 4.89 10^3/uL (4.4-10.8)
== END 2021-10-12 04:58 | disposition home or self-care (01) ==
LOC: LBO 04:57
PROVIDERS: PCP Family Medicine; Visit Provider Internal Medicine
DX: D69.6 Thrombocytopenia, unspecified (principal)
CPT/HCPCS: 36415; 85025

== ENCOUNTER 2021-10-25 21:42 | Outpatient (REF) | payer OTHER, SELFPAY ==
[2021-10-25 16:20] LABS: Abs Immature Grans 0.01 10^3/uL (0.0-0.06); Absolute Basophil Count 0.03 10^3/uL (0.0-0.2); Absolute Eosinophil Count 0.15 10^3/uL (0.0-0.7); Absolute Lymphocyte Count 1.78 10^3/uL (1.2-3.4); Absolute Monocyte Count 0.38 10^3/uL (0.1-0.8); Absolute Neutrophil Count 2.56 10^3/uL (1.2-6.7); Basophils % 0.6; Eosinophils % 3.1; HCT 46.2 % (40.0-50.0); HGB 14.8 g/dL (13.5-17.5); Immature Grans % 0.2; Lymphocytes % 36.3; MCH 29.2 pg (27.0-33.0); MCV 91 fL (80-95); MPV 9.9 fL (8.0-11.0); Monocytes % 7.7; Neutrophils % 52.1; Platelet Count 188 10^3/uL (130-400); RBC 5.07 10^6/uL (4.36-5.78); RDW 15.1 % (11.8-14.1); RDW-SD 50.4 fL; WBC 4.91 10^3/uL (4.4-10.8)
[2021-10-25 16:33] LABS: ALT 21 U/L (16-63); AST 17 U/L (15-37); Alkaline Phosphatase 117 U/L (46-116); Anion Gap 5.9 mmol/L (3-11); BUN 22 mg/dL (7-18); Bilirubin, Total 0.2 mg/dL (0.2-1.0); CO2 30.1 mmol/L (21.0-32.0); CREATININE 1.5 mg/dL (0.70-1.30); Chloride 103 mmol/L (98-107); Glucose 98 mg/dL (74-106); Potassium 4.4 mmol/L (3.5-5.1); Sodium 139 mmol/L (136-145)
[2021-10-27 16:51] LABS: Absolute CD3 1317 Cells/uL (840-2,669); Absolute CD8 1155 Cells/uL (154-1,097); CD3 78 % (56-84); CD4 7 % (31-64); CD8 68 % (9-39)
[2021-10-30 13:50] LABS: HIV 1 RNA Qualitative Detected copies/mL (Undetected); HIV 1 RNA Quantitative 16200 copies/mL (Undetected)
== END 2021-10-25 21:43 | disposition home or self-care (01) ==
LOC: LBN 21:42
PROVIDERS: PCP Family Medicine; Visit Provider Nurse Practitioner Family
DX: B20 Human immunodeficiency virus [HIV] disease (principal); Z79.899 Other long term (current) drug therapy
CPT/HCPCS: 80053; 87536; 85025; 86359; 86360

== ENCOUNTER 2022-01-01 09:00 | Outpatient (CLI) | payer MEDICAID, SELFPAY ==
--- NOTE | 2022-01-01 13:25 | CCCE_ITS ---
Date of service: 01/01/22 Time of Service: 09:00 [facility] Note Note: CC: Isreal is here for follow up, to have a Zoom visit with Dr. Florentino and to have 2 immunizations. Over all he is feeling well, has not missed any of his HIV medications and had blood work done on 10/25/2021 which will be reviwed today with DR. Florentino. HPI: isreal was diagnosed with HIV/AIDS in July. Was DX with PJP and hospitalized at [facility]. He was going to travel to [place] for his HIV care but had transportation problems. He decided to come to this satellite clinic of [facility] ID at [facility] which is close to his home. He borrows his sister's car to come here. He says he has not missed any doses of his HIV and PJP medication and has good access to them. He has not had febrile illness since he was last seen in October nor has he had a syncopal episode. He is standing from a sitting position more slowly which he attributes to his not getting dizzy and passing out. He says he banged his right shoulder with the last syncope in early October and it is still sometimes sore but he does not have reduced ROM of it. He is due for a Flu vaccine and Menactra #2 having had Menacta #1 in October. ROS: denies fever, chills, night sweats, states fatigue is better, AM smoker cough w sputum but denies hemoptesis. No GI disturbance, No swelling. Medications: Biktarvy Bactrim Inhalers w spacer He is smoking about 7 cigarettes a day, down from 2 ppd, no etoh, legal or illicit drugs OBJ: AINAD, gait strong and steady, no air hunger posturing 97.8, 100 reg, 18, 130/78, weight 193# Skin W/D no cyanosis CV: RRR, no MCRG Lungs w diminished BS at right base, clear in all lobes ow No edema Mood subdued, but easily moved to smiling, Affect somewhat flat Flu vaccine given in the right arm, Menactra#2 given in the left arm. A/P: HIV/AIDS recent diagnosis w severe depletion of CD4 cells - initial CD433 w a percent of 11 and a HIV viral load of 5,270,000., CD4 was 117 with a precent of 7 and a HIV viral load of 16,200 Immunizations give Lab work for a HIV viral load in mid Jan. February F/U visit [facility] [employer]
== END 2022-01-01 09:01 | disposition home or self-care (01) ==
LOC: CCC 13:22
PROVIDERS: PCP Family Medicine; Visit Provider Nurse Practitioner Family
DX: B20 Human immunodeficiency virus [HIV] disease (principal); Z79.899 Other long term (current) drug therapy
CPT/HCPCS: 90472; 90686; 99213

== ENCOUNTER 2022-01-17 04:01 | Outpatient (CLI) | payer MEDICAID, SELFPAY ==
[2022-01-18 13:49] LABS: HIV 1 RNA Qualitative Detected copies/mL (Undetected); HIV 1 RNA Quantitative 2030 copies/mL (Undetected)
== END 2022-01-17 04:02 | disposition home or self-care (01) ==
LOC: LBO 04:01
PROVIDERS: PCP Family Medicine; Visit Provider Internal Medicine Infectious Disease
DX: B20 Human immunodeficiency virus [HIV] disease (principal); Z79.899 Other long term (current) drug therapy
CPT/HCPCS: 36415; 87536

== ENCOUNTER 2022-02-23 01:37 | Outpatient (CLI) | payer MEDICAID, SELFPAY ==
[2022-02-23 14:40] LABS: Abs Immature Grans 0.01 10^3/uL (0.0-0.06); Absolute Basophil Count 0.03 10^3/uL (0.0-0.2); Absolute Eosinophil Count 0.26 10^3/uL (0.0-0.7); Absolute Monocyte Count 0.36 10^3/uL (0.1-0.8); Absolute Neutrophil Count 3.06 10^3/uL (1.2-6.7); Basophils % 0.6; Eosinophils % 5.2; HCT 46.4 % (40.0-50.0); HGB 15.1 g/dL (13.5-17.5); Immature Grans % 0.2; Lymphocytes % 25.9; MCH 29.4 pg (27.0-33.0); MCHC 32.5 % (32.0-36.0); MCV 90 fL (80-95); Monocytes % 7.2; Neutrophils % 60.9; Platelet Count 218 10^3/uL (130-400); RBC 5.14 10^6/uL (4.36-5.78); RDW 13.9 % (11.8-14.1); WBC 5.02 10^3/uL (4.4-10.8)
[2022-02-26 13:22] LABS: HIV 1 RNA Qualitative Detected copies/mL (Undetected); HIV 1 RNA Quantitative 234 copies/mL (Undetected)
[2022-02-27 09:23] LABS: 4/8 Ratio 0.25 (>=0.90); Absolute CD3 966 Cells/uL (840-2669); Absolute CD8 747 Cells/uL (154-1097); CD3 70 % (56-84); CD4 14 % (31-64); CD8 54 % (9-39)
== END 2022-02-23 01:38 | disposition home or self-care (01) ==
LOC: LBO 01:38
PROVIDERS: PCP Family Medicine; Visit Provider Internal Medicine Infectious Disease
DX: B20 Human immunodeficiency virus [HIV] disease (principal); Z79.899 Other long term (current) drug therapy
CPT/HCPCS: 36415; 87536; 85025; 86359; 86360

== ENCOUNTER 2022-04-02 01:11 | Outpatient (CLI) | payer MEDICAID, SELFPAY ==
--- NOTE | 2022-04-02 | DI.RAD_ITS ---
Exam(s) XR SHOULDER LT COMPLETE 2+V EXAM: XR SHOULDER LT COMPLETE 2+V CLINICAL HISTORY: LT SHOULDER PAIN, M25.512. TECHNIQUE: 2D digital imaging was performed. Five views. COMPARISON: No exams were available for comparison FINDINGS: BONES: No acute fracture is present. No bony destructive lesion is seen. JOINTS: No dislocation present. Mild spurring at AC joint. Mild narrowing at the glenohumeral join t. SOFT TISSUE: Normal. IMPRESSION: Mild degenerative changes. DATA REPOSITORY: RADIATION DOSE DELIVERED:
--- NOTE | 2022-04-02 | DI.RAD_ITS ---
Exam(s) XR SHOULDER RT COMPLETE 2+V EXAM: XR SHOULDER RT COMPLETE 2+V CLINICAL HISTORY: RT SHOULDER JOINT PAIN,M25.511. TECHNIQUE: 2D digital imaging was performed. Five views. COMPARISON: CR XR SHOULDER LT COMPLETE 2+V from 04/02/2022 FINDINGS: BONES: No acute fracture is present. No bony destructive lesion is seen. JOINTS: No dislocation present. Mild degenerative changes at the AC joint. Minimal spurring at the glenoid. SOFT TISSUE: Normal. IMPRESSION: Mild degenerative changes. DATA REPOSITORY: RADIATION DOSE DELIVERED:
== END 2022-04-02 01:31 ==
PROVIDERS: PCP Family Medicine; Visit Provider Family Medicine
DX: M19.011 Primary osteoarthritis, right shoulder (principal)
CPT/HCPCS: 73030

== ENCOUNTER 2022-05-16 03:14 | Outpatient (CLI) | payer MEDICAID, SELFPAY ==
[2022-05-17 12:34] LABS: HIV 1 RNA Qualitative Detected copies/mL (Undetected); HIV 1 RNA Quantitative 158 copies/mL (Undetected)
== END 2022-05-16 03:15 | disposition home or self-care (01) ==
LOC: LBO 03:14
PROVIDERS: Nurse Practitioner Family; PCP Family Medicine; Visit Provider Internal Medicine Infectious Disease
DX: B20 Human immunodeficiency virus [HIV] disease (principal); Z79.899 Other long term (current) drug therapy
CPT/HCPCS: 36415; 87536

== ENCOUNTER 2022-08-16 03:17 | Outpatient (CLI) | payer MEDICAID, SELFPAY ==
[2022-08-16 11:52] LABS: Abs Immature Grans 0.01 10^3/uL (0.0-0.06); Absolute Basophil Count 0.04 10^3/uL (0.0-0.2); Absolute Eosinophil Count 0.14 10^3/uL (0.0-0.7); Absolute Lymphocyte Count 1.68 10^3/uL (1.2-3.4); Absolute Monocyte Count 0.37 10^3/uL (0.1-0.8); Absolute Neutrophil Count 2.52 10^3/uL (1.2-6.7); Basophils % 0.8; Eosinophils % 2.9; HCT 50.1 % (40.0-50.0); HGB 16.5 g/dL (13.5-17.5); Immature Grans % 0.2; Lymphocytes % 35.3; MCH 28.9 pg (27.0-33.0); MCHC 32.9 % (32.0-36.0); MCV 88 fL (80-95); Monocytes % 7.8; Platelet Count 202 10^3/uL (130-400); RBC 5.71 10^6/uL (4.36-5.78); RDW 14.8 % (11.8-14.1); RDW-SD 47.8 fL; WBC 4.76 10^3/uL (4.4-10.8)
[2022-08-16 12:51] LABS: ALT 17 U/L (16-63); AST 16 U/L (15-37); Alkaline Phosphatase 127 U/L (46-116); BUN 12 mg/dL (7-18); Bilirubin, Total 0.6 mg/dL (0.2-1.0); CREATININE 1.5 mg/dL (0.70-1.30); Calcium 9.3 mg/dL (8.5-10.1); Chloride 104 mmol/L (98-107); Estimated GFR 52.97 (mL/min/1.73m2); Glucose 112 mg/dL (74-106); Potassium 4.8 mmol/L (3.5-5.1); Sodium 142 mmol/L (136-145); Total Protein 8.1 g/dL (6.4-8.2)
[2022-08-17 15:36] LABS: 4/8 Ratio 0.17 (>=0.90); Absolute CD3 1350 Cells/uL (840-2669); Absolute CD8 1122 Cells/uL (154-1097); CD3 66 % (56-84); CD4 9 % (31-64); CD8 55 % (9-39)
[2022-08-20 11:19] LABS: HIV 1 RNA Qualitative Detected copies/mL (Undetected); HIV 1 RNA Quantitative <20 copies/mL (Undetected)
== END 2022-08-16 03:18 | disposition home or self-care (01) ==
LOC: LBO 03:17
PROVIDERS: Nurse Practitioner Family; PCP Family Medicine; Visit Provider Internal Medicine Infectious Disease
DX: B20 Human immunodeficiency virus [HIV] disease (principal); Z79.899 Other long term (current) drug therapy
CPT/HCPCS: 36415; 80053; 87536; 85025; 86359; 86360

== ENCOUNTER 2023-01-08 03:34 | Outpatient (CLI) | payer OTHER, SELFPAY ==
[2023-01-10 08:59] LABS: 4/8 Ratio 0.19 (>=0.90); Absolute CD3 1088 Cells/uL (840-2669); Absolute CD8 884 Cells/uL (154-1097); CD3 64 % (56-84); CD4 10 % (31-64); CD8 52 % (9-39)
[2023-01-10 13:15] LABS: HIV 1 RNA Qualitative Detected copies/mL (Undetected); HIV 1 RNA Quantitative 63 copies/mL (Undetected)
== END 2023-01-08 03:35 | disposition home or self-care (01) ==
PROVIDERS: PCP Family Medicine; Visit Provider Internal Medicine Infectious Disease
DX: B20 Human immunodeficiency virus [HIV] disease (principal); Z79.899 Other long term (current) drug therapy
CPT/HCPCS: 36415; 87536; 86359; 86360

== ENCOUNTER 2023-04-24 03:52 | Outpatient (CLI) | payer OTHER, SELFPAY ==
[2023-04-24 11:20] LABS: Abs Immature Grans 0.02 10^3/uL (0.0-0.06); Absolute Basophil Count 0.06 10^3/uL (0.0-0.2); Absolute Eosinophil Count 0.19 10^3/uL (0.0-0.7); Absolute Lymphocyte Count 1.58 10^3/uL (1.2-3.4); Absolute Neutrophil Count 2.86 10^3/uL (1.2-6.7); Basophils % 1.2; Eosinophils % 3.8; HCT 51.3 % (40.0-50.0); HGB 16.9 g/dL (13.5-17.5); Immature Grans % 0.4; Lymphocytes % 31.5; MCH 28.4 pg (27.0-33.0); MCHC 32.9 % (32.0-36.0); MCV 86 fL (80-95); MPV 9.3 fL (8.0-11.0); Neutrophils % 57.1; Platelet Count 207 10^3/uL (130-400); RBC 5.95 10^6/uL (4.36-5.78); RDW 14.5 % (11.8-14.1); RDW-SD 45.1 fL; WBC 5.01 10^3/uL (4.4-10.8)
[2023-04-24 12:09] LABS: ALT 18 U/L (16-63); AST 15 U/L (15-37); Albumin 4.1 g/dL (3.4-5.0); Alkaline Phosphatase 127 U/L (46-116); Anion Gap 6.1 mmol/L (3-11); BUN 28 mg/dL (7-18); Bilirubin, Total 0.5 mg/dL (0.2-1.0); CO2 30.9 mmol/L (21.0-32.0); CREATININE 1.7 mg/dL (0.70-1.30); Calcium 9.2 mg/dL (8.5-10.1); Chloride 103 mmol/L (98-107); Glucose 113 mg/dL (74-106); Potassium 4.7 mmol/L (3.5-5.1); Sodium 140 mmol/L (136-145); Total Protein 8.3 g/dL (6.4-8.2)
[2023-04-26 09:16] LABS: 4/8 Ratio 0.21 (>=0.90); Absolute CD3 1331 Cells/uL (840-2669); Absolute CD8 1073 Cells/uL (154-1097); CD3 65 % (56-84); CD4 11 % (31-64); CD8 53 % (9-39)
[2023-04-29 11:58] LABS: HIV 1 RNA Qualitative Detected copies/mL (Undetected); HIV 1 RNA Quantitative <20 copies/mL (Undetected)
== END 2023-04-24 03:53 | disposition home or self-care (01) ==
LOC: LBO 03:52
PROVIDERS: PCP Family Medicine; Visit Provider Internal Medicine Infectious Disease
DX: B20 Human immunodeficiency virus [HIV] disease (principal); Z79.899 Other long term (current) drug therapy
CPT/HCPCS: 36415; 80053; 87536; 85025; 86359; 86360

== ENCOUNTER 2023-05-30 15:12 | Outpatient (REF) | payer OTHER, SELFPAY ==
[2023-05-30 20:48] LABS: Anion Gap 8.1 mmol/L (3-11); BUN 14 mg/dL (7-18); CO2 29.9 mmol/L (21.0-32.0); CREATININE 1.3 mg/dL (0.70-1.30); Calcium 8.8 mg/dL (8.5-10.1); Chloride 104 mmol/L (98-107); Glucose 98 mg/dL (74-106); Potassium 4.5 mmol/L (3.5-5.1); Sodium 142 mmol/L (136-145)
== END 2023-05-30 15:13 | disposition home or self-care (01) ==
LOC: NCHCN 15:12
PROVIDERS: PCP Family Medicine; Visit Provider Family Medicine
DX: I10 Essential (primary) hypertension (principal)
CPT/HCPCS: 80048

== ENCOUNTER 2023-09-24 15:11 | Outpatient (REF) | payer OTHER, SELFPAY ==
[2023-09-24 17:10] LABS: Anion Gap 8.7 mmol/L (3-11); BUN 11 mg/dL (7-18); CO2 31.3 mmol/L (21.0-32.0); CREATININE 1.4 mg/dL (0.70-1.30); Calcium 8.9 mg/dL (8.5-10.1); Calculated LDL 106 mg/dL (<100); Chloride 104 mmol/L (98-107); Cholesterol 182 mg/dL (<200); Estimated GFR 57.18 (mL/min/1.73m2); Glucose 108 mg/dL (74-106); HDL Cholesterol 54 mg/dL (40-60); Potassium 5.2 mmol/L (3.5-5.1); Sodium 144 mmol/L (136-145); Triglyceride 112 mg/dL (<150)
== END 2023-09-24 15:12 | disposition home or self-care (01) ==
LOC: NCHCN 15:11
PROVIDERS: PCP Family Medicine; Visit Provider Family Medicine
DX: Z00.00 Encounter for general adult medical examination without abnormal findings (principal); I10 Essential (primary) hypertension; R79.89 Other specified abnormal findings of blood chemistry
CPT/HCPCS: 80048; 80061

== ENCOUNTER 2023-11-26 02:35 | Outpatient (CLI) | payer OTHER, SELFPAY ==
[2023-11-26 12:37] LABS: Abs Immature Grans 0.02 10^3/uL (0.0-0.06); Absolute Basophil Count 0.04 10^3/uL (0.0-0.2); Absolute Eosinophil Count 0.15 10^3/uL (0.0-0.7); Absolute Lymphocyte Count 1.85 10^3/uL (1.2-3.4); Absolute Monocyte Count 0.39 10^3/uL (0.1-0.8); Absolute Neutrophil Count 3.18 10^3/uL (1.2-6.7); Basophils % 0.7 %; Eosinophils % 2.7 %; HCT 49.3 % (40.0-50.0); HGB 16.5 g/dL (13.5-17.5); Immature Grans % 0.4 %; Lymphocytes % 32.9 %; MCH 30.7 pg (27.0-33.0); MCHC 33.5 % (32.0-36.0); MCV 92 fL (80-95); MPV 9.2 fL (8.0-11.0); Monocytes % 6.9 %; Neutrophils % 56.4 %; Platelet Count 235 10^3/uL (130-400); RBC 5.38 10^6/uL (4.36-5.78); RDW 14.1 % (11.8-14.1); RDW-SD 47.7 fL; WBC 5.63 10^3/uL (4.4-10.8)
[2023-11-26 13:13] LABS: ALT 15 U/L (16-63); AST 13 U/L (15-37); Albumin 3.5 g/dL (3.4-5.0); Alkaline Phosphatase 112 U/L (46-116); Anion Gap 7.3 mmol/L (3-11); BUN 18 mg/dL (7-18); Bilirubin, Total 0.31 mg/dL (0.2-1.0); CO2 29.7 mmol/L (21.0-32.0); CREATININE 1.2 mg/dL (0.70-1.30); Calcium 8.8 mg/dL (8.5-10.1); Chloride 107 mmol/L (98-107); Glucose 114 mg/dL (74-106); Potassium 4.4 mmol/L (3.5-5.1); Sodium 144 mmol/L (136-145); Total Protein 7.2 g/dL (6.4-8.2)
[2023-11-27 15:19] LABS: 4/8 Ratio 0.19 (>=0.90); Absolute CD3 1719 Cells/uL (840-2669); Absolute CD8 1437 Cells/uL (154-1097); CD3 69 % (56-84); CD4 11 % (31-64); CD8 57 % (9-39)
[2023-11-28 12:51] LABS: HIV 1 RNA Qualitative Detected Copys/mL (Undetected); HIV 1 RNA Quantitative <20 Copys/mL (Undetected)
== END 2023-11-26 02:36 | disposition home or self-care (01) ==
LOC: LBO 02:35
PROVIDERS: Internal Medicine Infectious Disease; PCP Family Medicine; Visit Provider Nurse Practitioner Family
DX: B20 Human immunodeficiency virus [HIV] disease (principal); Z79.899 Other long term (current) drug therapy
CPT/HCPCS: 36415; 80053; 87536; 85025; 86359; 86360

== ENCOUNTER 2024-02-06 23:49 | Emergency (ER) | payer OTHER, SELFPAY ==
[2024-02-06 23:50] VITALS: BP 171/100; PULSE 90; RESP 18; O2SAT 100
[2024-02-06 23:56] VITALS: BP 171/100; PULSE 90; RESP 18; O2SAT 100
[2024-02-07] VITALS (13 sets, daily range): BP systolic 153–170; BP diastolic 104–105; PULSE 65–77; RESP 14–37; O2SAT 97–100
--- NOTE | 2024-02-07 00:25 | W.ED.GENAD ---
Discharge Plan Disposition Patient Disposition: Home Condition: Stable Discharge Details Clinical Impression: Localized swelling of left lower extremity Primary Care Provider: Erwin Sahu ED Provider: Lima Bellamy Home Meds and New Rx's Prescriptions: Continued Biktarvy 50-200-25 mg tablet 1 tab PO DAILY Trelegy Ellipta 100-62.5-25 mcg blister with device 1 inh inhalation DAILY Qty: 60 12RF pantoprazole 40 mg tablet,delayed release (DR/EC) See Rx Instructions .ROUTE .COMPLEX Qty: 60 12RF Dose Instruction: TAKE ONE TABLET BY MOUTH TWICE A DAY Rx Instructions: TAKE ONE TABLET BY MOUTH TWICE A DAY amlodipine 5 mg Tablet 5 mg PO DAILY Qty: 30 0RF albuterol sulfate 90 mcg/actuation HFA aerosol inhaler 2 puff INHALATION Q4H PRN PRN Rx Instructions: 2 PUFFS Q4-6H PRN ascorbic acid (vitamin C) [Vitamin C] 500 mg Tablet 1,000 mg PO BID Qty: 112 0RF cholecalciferol (vitamin D3) 25 mcg (1,000 unit) Tablet 2,000 units PO DAILY Qty: 30 0RF venlafaxine 75 mg capsule,extended release 24hr 1 cap PO DAILY Patient Comments: TAKE ONE CAPSULE BY MOUTH EVERY DAY Discontinued acetaminophen [Aphen] 325 mg tablet 650 mg PO Q6H PRN (Reason: fever or pain) Qty: 30 0RF No Action (DME) Oxygen Tank See Rx Instructions .Route Qty: 1 0RF Rx Instructions: 1 LPM with exertion Discharge Instructions Instructions: Deep Vein Thrombosis (DVT) ED Additional Instructions: You need an ultrasound to see if you have a blood clot in your leg. You have chosen to go home and come back in the morning for the scan. Please come to [facility] diagnostic imaging for your ultrasound first thing in the morning (8am-9am). After your test check in to the ED for your results and to be prescribed a blood thinner if your test shows a blood clot. Blood thinners can increase your risk of bleeding, especially if you fall and hit your head, and you were given a dose here in the ED tonight. It is very important that you do this as untreated blood clots can kill you. Return to the emergency department sooner if you develop any new or worsening symptoms particularly difficulty breathing, feeling like you are going to pass out, chest pain, head injury, or if you have any other concerns. Referrals: Erwin Sahu MD [Primary Care Provider] - [facility] General Mode of arrival: ambulatory. Date/Time Provider Initiated Documentation: 02/06/24 23:58. Limitations to Documentation: no limitations. Information obtained by: patient. HPI Narrative: 64yo M with hx COPD, HTN, CAD, HIV, presenting with left leg pain and swelling. Has been progressive over the past three weeks. No trauma to the area, no recent surgery/immobilization, no personal or family hx of blood clots. Has tender swollen cords throughout his whole left leg (some on right as well, not nearly as bad) worse with standing. Left leg seems swollen overall compared to right. No increased pain with activity. No color change. No warmth or redness. No numbness, tingling, or weakness. Does have shortness of breath with exertion, not worse than his baseline. No chest pain or pleuritic pain or lightheadedness. Otherwise in his usual state of health with no fevers, chills, rash, nausea, vomiting, abdominal pain, or other concerns. Related Data Home Medications ?Medication ?Instructions ?Recorded ?Confirmed amlodipine 5 mg tablet 5 mg PO DAILY #30 tabs 07/25/18 02/07/24 albuterol sulfate 90 mcg/actuation 2 puff inhalation Q4H PRN PRN 03/03/21 02/07/24 aerosol inhaler ascorbic acid (vitamin C) 500 mg 1,000 mg (2 x 500 mg) PO BID #112 03/06/21 02/07/24 tablet (Vitamin C) tabs cholecalciferol (vitamin D3) 25 2,000 units PO DAILY #30 tabs 03/06/21 02/07/24 mcg (1,000 unit) tablet Oxygen #1 ea 06/06/21 02/07/24 fluticasone fur. 100 mcg-umeclid 1 inh inhalation DAILY #60 ea 06/07/21 02/07/24 62.5 mcg-vilant 25 mcg inhalat.powder (Trelegy Ellipta) venlafaxine 75 mg capsule,extended 1 cap PO DAILY 07/15/21 02/07/24 release 24 hr bictegravir 50 mg-emtricitabine 1 tab PO DAILY 09/12/21 02/07/24 200 mg-tenofovir alafenam 25 mg tablet (Biktarvy) pantoprazole 40 mg tablet,delayed See Rx Instructions .Route 10/15/22 02/07/24 release .COMPLEX #60 tabs Previous Rx's ?Medication ?Instructions ?Recorded amlodipine 5 mg tablet 5 mg PO DAILY #30 tabs 07/25/18 ascorbic acid (vitamin C) 500 mg 1,000 mg (2 x 500 mg) PO BID #112 03/06/21 tablet (Vitamin C) tabs cholecalciferol (vitamin D3) 25 2,000 units PO DAILY #30 tabs 03/06/21 mcg (1,000 unit) tablet Oxygen #1 ea 06/06/21 fluticasone fur. 100 mcg-umeclid 1 inh inhalation DAILY #60 ea 06/07/21 62.5 mcg-vilant 25 mcg inhalat.powder (Trelegy Ellipta) pantoprazole 40 mg tablet,delayed See Rx Instructions .Route 10/15/22 release .COMPLEX #60 tabs Allergies Allergy/AdvReac Type Severity Reaction Status Date / Time nut - unspecified Allergy Severe Anaphylaxsi Verified 02/07/24 00:03 s latex Allergy Hives Verified 02/07/24 00:03 General Stated Complaint: GenMedical LILI: 3 Review of Systems Narrative: see HPI Exam Narrative Exam Narrative: General: Alert, thin, poor dentition, in no acute distress. Head: Normocephalic, atraumatic Neck: Trachea midline, ?Neck supple. ENT: ?MMM.? No oropharygeal lesions or exudate. Cardiac: ?RRR, no murmurs appreciated Resp: No respiratory distress. CTAB. Abd: ?Soft, non-distended, nontender Extremities: ?Tender palpable superficial veins bilaterall LE, L >>>R. Left leg slightly increased girth throughout compared to right. No pitting edema. 2+ pedal pulses symmetric bilaterally. Sensation intact and symmteric BLE. No warmth, erythema, or discharge. Neurologic: GCS 15. ? Moves all extremities freely against gravity Course Vital Signs Vital signs: Vital Signs Pulse 90 02/06/24 23:50 Respiratory Rate 18 02/06/24 23:50 Blood Pressure 171/100 H 02/06/24 23:50 Pulse Oximetry 100 02/06/24 23:50 Pulse 74 02/07/24 00:16 Pulse 77 02/07/24 00:16 Respiratory Rate 37 H 02/07/24 00:16 Respiratory Effort Normal, Non-Labored 02/07/24 00:01 Respiratory Depth Normal 02/07/24 00:01 Respiratory Pattern Normal 02/07/24 00:01 Blood Pressure 153/104 H 02/07/24 00:16 Blood Pressure Mean 115 02/07/24 00:16 Blood Pressure Position Sitting 02/06/24 23:56 Pulse Oximetry 99 02/07/24 00:16 Oxygen Delivery Method Room Air 02/06/24 23:56 Oxygen Flow Rate 0 02/06/24 23:50 Pain Level 6 02/07/24 00:01 Medical Decision Making 64yo M with hx COPD, HTN, CAD, HIV, presenting with left leg pain and swelling over the past three weeks. Hypertensive on arrival, vital signs otherwise reassuring. Palpable tender venous cords LLE >> RLE with some LLE swelling throughout compared to right. Concerning for DVT with collateral veins vs simple varicose veins. Ideally would get US however not available overnight at pt states he is not willing to remain in the ED until the am for US (though would be willing to return in the morning). Given that he also has some shortness of breath (though he states is chronic and not changed from baseline) must also consider PE given clinical exam suggestive of possible DVT. History and exam not concerning for acute limb ischemia, phlegmasia cerulea dolens, or cellulitis. Labs reviewed as below, CBC reassuring with no leukokcytosis or anemia, CMP with no actionable abnormalities, PT & PTT normal, d-dimer slightly elevated at 550. CT for PE ordered and independently reviewed; no large saddle embolus on my view, radiology read below with no acute findings. On reassessment he remains well appearing wtih reassuring vital signs, again states he does not want to remain in the ED overnight but is willing to return in the morning which is not unreasonable. Aside from HTN (difficulty to know baseline, is elevated here in the ED) no significant risk factors for bleeding. Given 15mg xarelto in the ED for possible large DVT and plan for outpatient ultrasound in the am with return to the ED for results and prescription of ongoing blood thinners if indicated. Discharged home with strict return precautions. Discharge instructions and return precautions were reviewed with patient who verbalized understanding. All questions were answered and he is in full agreement with the plan. Imaging Data Radiologic Study: Imaging: CT Scan Radiologist's impression: IMPRESSION: 1. No pulmonary embolism. 2. No acute infiltrates. Lab Data Lab results reviewed: Yes I reviewed the patient's lab results. Labs: Laboratory Tests Range/Units 02/07/24 00:19 WBC (4.4-10.8) 10^3/uL 4.34 L RBC (4.36-5.78) 10^6/uL 4.93 Hgb (13.5-17.5) g/dL 14.7 Hct (40.0-50.0) % 44.4 MCV (80-95) fL 90 MCH (27.0-33.0) pg 29.8 MCHC (32.0-36.0) % 33.1 RDW (11.8-14.1) % 13.2 Plt Count (130-400) 10^3/uL 202 MPV (8.0-11.0) fL 9.4 Immature Gran % % 0.5 Neutrophils % % 41.1 Lymphocytes % % 43.3 Monocytes % % 10.4 Eosinophils % % 3.5 Basophils % % 1.2 Nucleated RBC % (0.0-0.3) % 0.0 Absolute Neutrophils (1.2-6.7) 10^3/uL 1.78 Absolute Lymphocytes (1.2-3.4) 10^3/uL 1.88 Absolute Monocytes (0.1-0.8) 10^3/uL 0.45 Absolute Eosinophils (0.0-0.7) 10^3/uL 0.15 Absolute Basophils (0.0-0.2) 10^3/uL 0.05 PT (9.1-11.1) sec 10.4 INR (0.9-1.1) 1.0 APTT (23.6-32.8) sec 25.9 D-Dimer (<500) ng/mlFEU 550 H Sodium (136-145) mmol/L 143 Potassium (3.5-5.1) mmol/L 3.6 Chloride (98-107) mmol/L 106 Carbon Dioxide (21.0-32.0) mmol/L 30.6 Anion Gap (3-11) mmol/L 6.4 BUN (7-18) mg/dL 15 Creatinine (0.70-1.30) mg/dL 1.5 H Est GFR (CKD-EPI 2020) (mL/min/1.73m2) 52.31 Glucose (74-106) mg/dL 114 H Calcium (8.5-10.1) mg/dL 8.5 Total Bilirubin (0.2-1.0) mg/dL 0.23 AST (15-37) U/L 12 L ALT (16-63) U/L 12 L Alkaline Phosphatase (46-116) U/L 144 H Total Protein (6.4-8.2) g/dL 6.9 Albumin (3.4-5.0) g/dL 3.4 Quality:SDOH Health Related Social Needs: No Data to Display PFSH All Active Problems (Updated 02/07/24 @ 02:39 by Lima Bellamy MD) Localized swelling of left lower extremity (Acute) Pneumocystis jiroveci pneumonia (Acute) AIDS (acquired immune deficiency syndrome) (Acute) COVID-19 (Acute) Pneumonia (Acute) Thrombocytopenia (Chronic) Hypoxia (Acute) COVID-19 virus infection (Acute) COPD exacerbation (Acute) Hypoxemia (Acute) Pneumonia (Acute) Pulmonary nodules (Acute) Chest pain at rest (Acute) Coronary artery disease (Chronic) Activity of daily living alteration (Acute) Pulmonary infiltrate (Acute) 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) Respiratory failure with hypoxia (Acute) COPD (chronic obstructive pulmonary disease) (Chronic) RODRIGUEZ (dyspnea on exertion) (Acute) sat [address] to office Chronic obstructive pulmonary disease with hypoxia (Acute) Unexplained weight loss (Acute) Pneumonia 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 (Acute ~02/2021) Odynophagia (Acute) Adult failure to thrive (Acute) Vitamin D deficiency (Acute) Hypomagnesemia (Acute) 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) COVID (Acute) February 2019 Elevated troponin (Acute) Headache (Acute) Tobacco abuse (Acute) Medical History COPD (chronic obstructive pulmonary disease) HTN (hypertension) Restrictive airway disease Surgical History No significant past surgical history Social History Smoking/Tobacco Use Status: Current every day Smoking risk assessment performed?: Yes Alcohol Intake: current Alcohol Intake frequency: holidays/special occasions only Drug use: Occasionally Substance use type: marijuana Details: trying to quit smoking 02/06/24 Housing: homeless Do you feel safe at home: Yes Do you feel safe in your relationship?: Yes Additional Social history: living in [facility] currently 02/06/24
[2024-02-07 00:42] LABS: Abs Immature Grans 0.02 10^3/uL (0.0-0.06); Absolute Basophil Count 0.05 10^3/uL (0.0-0.2); Absolute Eosinophil Count 0.15 10^3/uL (0.0-0.7); Absolute Lymphocyte Count 1.88 10^3/uL (1.2-3.4); Absolute Monocyte Count 0.45 10^3/uL (0.1-0.8); Basophils % 1.2 %; Eosinophils % 3.5 %; HCT 44.4 % (40.0-50.0); HGB 14.7 g/dL (13.5-17.5); Immature Grans % 0.5 %; Lymphocytes % 43.3 %; MCH 29.8 pg (27.0-33.0); MCHC 33.1 % (32.0-36.0); MCV 90 fL (80-95); MPV 9.4 fL (8.0-11.0); Monocytes % 10.4 %; Neutrophils % 41.1 %; Platelet Count 202 10^3/uL (130-400); RBC 4.93 10^6/uL (4.36-5.78); RDW 13.2 % (11.8-14.1); RDW-SD 44.3 fL; WBC 4.34 10^3/uL (4.4-10.8)
[2024-02-07 00:43] LABS: Absolute Neutrophil Count 1.78 10^3/uL (1.2-6.7)
[2024-02-07 00:56] LABS: ALT 12 U/L (16-63); AST 12 U/L (15-37); Albumin 3.4 g/dL (3.4-5.0); Alkaline Phosphatase 144 U/L (46-116); Anion Gap 6.4 mmol/L (3-11); BUN 15 mg/dL (7-18); Bilirubin, Total 0.23 mg/dL (0.2-1.0); CO2 30.6 mmol/L (21.0-32.0); CREATININE 1.5 mg/dL (0.70-1.30); Calcium 8.5 mg/dL (8.5-10.1); Chloride 106 mmol/L (98-107); Estimated GFR 52.31 (mL/min/1.73m2); Glucose 114 mg/dL (74-106); PTT Activated 25.9 sec (23.6-32.8); Potassium 3.6 mmol/L (3.5-5.1); Prothrombin Time 10.4 sec (9.1-11.1); Sodium 143 mmol/L (136-145); Total Protein 6.9 g/dL (6.4-8.2)
--- NOTE | 2024-02-07 01:00 | DI.CT_ITS ---
Exam(s) CT CHEST PE CTA EXAM: CT CHEST PE CTA CLINICAL HISTORY: SOB, +dimer, exam concerning for LLE DVT. TECHNIQUE: Imaging Protocol: Axial CT angiography was performed with multi-slice acquisition and mu lti-planar reconstructions as well as axial, coronal and sagittal MIP reconstructions. Computer aided detection (CAD) was utilized. CONTRAST MATERIAL: Intravenous: Omnipaque 350 Contrast volume:75 ml COMPARISON: CT CT CHEST WO from 09/22/2021 FINDINGS: Pulmonary Arteries: No evidence of filling defect to suggest pulmonary emboli. Mediastinum and Deirdre: No dominant adenopathy or fluid collection. Pulmonary parenchyma: No consolidation or dominant measurable mass. Emphysematous changes at the apic es. Previously noted pulmonary nodules are not no longer present. Pleura: No effusion or pneumothorax. Heart: The heart is not dilated. Mild coronary artery calcifications are seen. Aorta: Thoracic aorta non-dilated. No dissection. Upper abdomen: No acute findings. Bones: Unremarkable for age. Tubes, Catheters, and Lines: None Soft tissues: Unremarkable. IMPRESSION: No evidence of pulmonary embolism or other acute abnormality.. RADIATION DOSE DELIVERED: 83.36mGy.cm Total DLP DATA REPOSITORY: All CT scans at this facility are submitted to the National Radiology Data Registry (NRDR) Dose Index Registry (DIR) with the [employer] (ACR). RADIATION OPTIMIZATION: All CT scans at this facility use at least one of these dose optimization te chniques: automated exposure control; mA and/or kV adjustment per patient size (includes targeted exa ms where dose is matched to clinical indication); or iterative reconstruction.
[2024-02-07 01:07] LABS: D-Dimer 550 ng/mlFEU (<500)
[2024-02-07] MEDS: Normal Saline - Diluent 50 ML VIAL IJ (01:46)
[2024-02-07] MEDS: Omnipaque 350 MG/ML 100 ML BTL IJ (01:47)
--- NOTE | 2024-02-07 02:23 | DI.VRAD_ITS ---
PROCEDURE INFORMATION: Exam: CTA Chest With Contrast Exam date and time: 02/07/2024 1:25 AM Age: 64 years old Clinical indication: Shortness of breath and other: SOB, +dimer, exam concerning for lle dvt TECHNIQUE: Imaging protocol: Computed tomographic angiography of the chest with contrast. Exam focused on the arteries. 3D rendering (Not supervised by radiologist): MIP and/or 3D reconstructed images were created by the technologist. Contrast material: OMNI 350; Contrast volume: 75 ml; Contrast route: INTRAVENOUS (IV); COMPARISON: CT CHEST PE CTA 08/08/2018 1:11 PM FINDINGS: Pulmonary arteries: Normal. No pulmonary emboli. Aorta: Unremarkable. No aortic aneurysm. No aortic dissection. Lungs: Bilateral apical predominant emphysematous changes. No focal infiltrates Pleural spaces: Unremarkable. No pneumothorax. No pleural effusion. Heart: Unremarkable. No cardiomegaly. No pericardial effusion. Lymph nodes: Unremarkable. No enlarged lymph nodes. Bones/joints: The thoracic spine demonstrates mild degenerative changes at multiple levels. Soft tissues: Unremarkable. IMPRESSION: 1. No pulmonary embolism. 2. No acute infiltrates. Dictated and Authenticated by: Sanchez Aguayo MD. Ordering:TRISHA Amato MD
[2024-02-07] MEDS: Rivaroxaban 15 MG TABLET PO (02:58)
== END 2024-02-07 03:00 | disposition home or self-care (01) ==
PROVIDERS: Emergency Provider Student in an Organized Health Care Education/Training Program; PCP Family Medicine
DX: R22.42 Localized swelling, mass and lump, left lower limb (principal); M79.605 Pain in left leg
CPT/HCPCS: 36415; 71275; 80053; 99285; 85025; 85379; 85610; 85730; 99284; J3490

== ENCOUNTER 2024-02-07 12:16 | Outpatient (CLI) | payer OTHER, SELFPAY ==
--- NOTE | 2024-02-07 | DI.US_ITS ---
Exam(s) US LOWER EXTREMITY VENOUS LT EXAM: US LOWER EXTREMITY VENOUS LT CLINICAL HISTORY: LEFT LEG PAIN AND SWELLING M79.605 R22.42. TECHNIQUE: Lower extremity venous ultrasound performed using grayscale, color-flow, and spectral Do ppler analysis. COMPARISON: No exams were available for comparison FINDINGS: The common femoral, femoral and popliteal veins demonstrate normal compressibility, augmentation, and color Doppler. The posterior tibial and peroneal veins are patent. No saphenous vein thrombosis or other superficial venous thrombosis is seen. No hematoma or Will's cyst is seen. IMPRESSION: Negative lower extremity ultrasound. No evidence of DVT. DATA REPOSITORY:
== END 2024-02-07 12:36 ==
LOC: DI 12:17
PROVIDERS: PCP Family Medicine; Visit Provider Emergency Medicine
DX: R06.02 Shortness of breath (principal)
CPT/HCPCS: 93971

== ENCOUNTER 2024-02-07 13:05 | Emergency (ER) | payer OTHER, SELFPAY ==
[2024-02-07 13:08] VITALS: BP 146/96; PULSE 100; RESP 16; TEMP 36.4; O2SAT 97
--- NOTE | 2024-02-07 13:19 | ED.GENADUL_ITS ---
Discharge Plan Disposition Patient Disposition: Home Condition: Stable Discharge Details Clinical Impression: Left leg pain Primary Care Provider: Erwin Sahu ED Provider: Johnathan Blackwell Home Meds and New Rx's Prescriptions: Continued Biktarvy 50-200-25 mg tablet 1 tab PO DAILY (DME) Oxygen Tank See Rx Instructions .Route Qty: 1 0RF Rx Instructions: 1 LPM with exertion Trelegy Ellipta 100-62.5-25 mcg blister with device 1 inh inhalation DAILY Qty: 60 12RF pantoprazole 40 mg tablet,delayed release (DR/EC) See Rx Instructions .ROUTE .COMPLEX Qty: 60 12RF Dose Instruction: TAKE ONE TABLET BY MOUTH TWICE A DAY Rx Instructions: TAKE ONE TABLET BY MOUTH TWICE A DAY amlodipine 5 mg Tablet 5 mg PO DAILY Qty: 30 0RF albuterol sulfate 90 mcg/actuation HFA aerosol inhaler 2 puff INHALATION Q4H PRN PRN Rx Instructions: 2 PUFFS Q4-6H PRN ascorbic acid (vitamin C) [Vitamin C] 500 mg Tablet 1,000 mg PO BID Qty: 112 0RF cholecalciferol (vitamin D3) 25 mcg (1,000 unit) Tablet 2,000 units PO DAILY Qty: 30 0RF venlafaxine 75 mg capsule,extended release 24hr 1 cap PO DAILY Patient Comments: TAKE ONE CAPSULE BY MOUTH EVERY DAY Discharge Instructions Instructions: Leg Pain (ED) Additional Instructions: You were seen in the emergency department for your left leg pain with varicosities, your ultrasound shows no blood clot in the CT of your chest shows no PE or pulmonary embolism of the lungs. Please use an Leo bandage to gently perform a compression wrap or obtain a pair of compression stockings for your legs, apply gentle heat to the areas, take 440 mg twice per day of Aleve for 1 to 2 weeks, then pull back to 220 milligrams twice per day. Please return for any acute worsening, unilateral leg swelling, complete numbness or inability to move the leg, skin changes, worsening pain despite treatment. Referrals: Erwin Sahu MD [Primary Care Provider] - Discharge Data Discharge Date/Time-TO BE ENTERED AT DEPARTURE: 02/07/24 13:41 HPI General Date/Time Provider Initiated Documentation: 02/07/24 13:19 . HPI Narrative: 64 year-old male presents to ED today by POV/ambulating with a chief complaint of return from visit last night for US DVT Study of Louis HUYNH, had negative CTA last night with onset of pain over the last 3 weeks. Quality described as left leg pain, tightness in calf going up to the thigh, no radiation to overt skin alcantara ges, he does have varicosities, denies gross unilateral leg swelling. Severity is described as moderate. Palliating factors include nothing specific attempted. Provoking factors include nothing specific. Patient not anticoagulated. Related Data Home Medications ?Medication ?Instructions ?Recorded ?Confirmed amlodipine 5 mg tablet 5 mg PO DAILY #30 tabs 07/25/18 02/07/24 albuterol sulfate 90 mcg/actuation 2 puff inhalation Q4H PRN PRN 03/03/21 02/07/24 aerosol inhaler ascorbic acid (vitamin C) 500 mg 1,000 mg (2 x 500 mg) PO BID #112 03/06/21 02/07/24 tablet (Vitamin C) tabs cholecalciferol (vitamin D3) 25 2,000 units PO DAILY #30 tabs 03/06/21 02/07/24 mcg (1,000 unit) tablet Oxygen #1 ea 06/06/21 02/07/24 fluticasone fur. 100 mcg-umeclid 1 inh inhalation DAILY #60 ea 06/07/21 02/07/24 62.5 mcg-vilant 25 mcg inhalat.powder (Trelegy Ellipta) venlafaxine 75 mg capsule,extended 1 cap PO DAILY 07/15/21 02/07/24 release 24 hr bictegravir 50 mg-emtricitabine 1 tab PO DAILY 09/12/21 02/07/24 200 mg-tenofovir alafenam 25 mg tablet (Biktarvy) pantoprazole 40 mg tablet,delayed See Rx Instructions .Route 10/15/22 02/07/24 release .COMPLEX #60 tabs Previous Rx's ?Medication ?Instructions ?Recorded amlodipine 5 mg tablet 5 mg PO DAILY #30 tabs 07/25/18 ascorbic acid (vitamin C) 500 mg 1,000 mg (2 x 500 mg) PO BID #112 03/06/21 tablet (Vitamin C) tabs cholecalciferol (vitamin D3) 25 2,000 units PO DAILY #30 tabs 03/06/21 mcg (1,000 unit) tablet Oxygen #1 ea 04/26/22 fluticasone fur. 100 mcg-umeclid 1 inh inhalation DAILY #60 ea 06/07/21 62.5 mcg-vilant 25 mcg inhalat.powder (Trelegy Ellipta) pantoprazole 40 mg tablet,delayed See Rx Instructions .Route 10/15/22 release .COMPLEX #60 tabs Allergies Allergy/AdvReac Type Severity Reaction Status Date / Time nut - unspecified Allergy Severe Anaphylaxsi Verified 02/07/24 13:09 s latex Allergy Hives Verified 02/07/24 13:09 General Stated Complaint: Recheck LILI: 4 Review of Systems All systems reviewed & are unremarkable except as noted in HPI and below Exam Narrative Exam Narrative: GENERAL APPEARANCE: Well-nourished, non-toxic, awake and alert, atraumatic, no acute distress. SKIN: Warm, pink, dry, intact, without rashes/lesions/ulcerations. HEAD: Normocephalic, atraumatic, normal hair distribution for gender/age. EYES: Normal conjunctiva, no exudates on lids/lashes. ENT: Nares patent, no circumoral cyanosis, no facial swelling NECK: Supple, trachea midline, painless cervical ROM. LUNGS/CHEST: Non-labored respirations, normal A/P diameter, symmetrical expansion, no chest wall deformity HEART (CV/PV): No peripheral edema, no JVD. ABDOMEN: Soft, non-distended, no guarding. MSK: Normal ROM, no swelling/deformity to bilateral UEs or LEs, moving all extremities without weakness, no cyanosis, spine midline without tenderness, normal curvature, diffuse varicosities without erythema or skin changes to the left lower leg, no unilateral leg swelling, Homans negative, neurovascular intact distal, some nodularities in varicosities of distal calf NEURO: Mental Status AAOx4 - alert to person, place, time, events No facial droop, no forehead involvement. Motor: No focal weakness - strength 5/5 in bilateral UEs and LEs, proximal and distal, symmetric. Sensory: sensation intact to light touch globally. Gait normal: patient ambulated without ataxia into ED room. PSYCH: euthymic, cooperative, pleasant, appropriate speech Course Vital Signs Vital signs: Vital Signs Temperature 36.4 C 02/07/24 13:08 Pulse 100 H 02/07/24 13:08 Respiratory Rate 16 02/07/24 13:08 Blood Pressure 146/96 H 02/07/24 13:08 Pulse Oximetry 97 02/07/24 13:08 Temperature 36.4 C 02/07/24 13:08 Temperature Source Oral 02/07/24 13:08 Pulse 100 H 02/07/24 13:08 Respiratory Rate 16 02/07/24 13:08 Blood Pressure 146/96 H 02/07/24 13:08 Pulse Oximetry 97 02/07/24 13:08 Oxygen Delivery Method Room Air 02/07/24 13:08 Oxygen Flow Rate 0 02/07/24 13:08 Pain Level 2 02/07/24 13:08 Medical Decision Making This dictation utilizes [id number] dictation software and may contain une dited grammatical errors. 64 year-old male presents to ED today by POV/ambulating with a chief complaint of return from visit last night for US DVT Study of L LE, had negative CTA last night with onset of pain over the last 3 weeks. Quality described as left leg pain, tightness in calf going up to the thigh, no radiation to overt skin changes, he does have varicosities, denies gross unilateral leg swelling. Severity is described as moderate. Palliating factors include nothing specific attempted. Provoking factors include nothing specific. Patients' medical history: [ ]. Family and social history: [ ]. Pertinent exam findings / vital signs include diffuse varicosities without erythema or skin changes to the left lower leg, no unilateral leg swelling, Homans negative, neurovascular intact distal, some nodularities in varicosities of distal calf. Differential / pathologies of concern include superficial thrombophlebitis, MSK leg pain. Diagnostic studies of: -US DVT LLE - negative for DVT, no superficial seen. Interventions of: -None, recommend regular use of NSAIDs and compression wraps. ED Course/Assessment/Plan: Patient has some varicosities and left leg pain, received negative studies today of DVT ultrasound, with negative CTA of the chest last night, it is ultrasound is negative, he may have some element of superficial thrombophlebitis that is not overtly detected on ultrasound, regardless a urged him to perform gentle compression and heat on his leg and take regular doses of NSAIDs which would likely help with any musculoskeletal cause as well, I stressed strict return criteria for any unilateral leg swelling and worsening despite treatment, he may want to follow-up with orthopedics or vascular for further evaluation. Findings not consistent with DVT, superficial thrombophlebitis, infection, neurovascular compromise. Disposition of Left Leg Pain. Patient verbalized understanding of the plan and return to ED criteria and engaged in shared decision making. Medical Records Medical records reviewed: Yes I reviewed the patient's medical records. Imaging Data Radiologic Study: Attestation: I personally reviewed and interpreted this imaging study as follows: Imaging: Ultrasound Radiologist's impression: EXAM: US LOWER EXTREMITY VENOUS LT CLINICAL HISTORY: LEFT LEG PAIN AND SWELLING M79.605 R22.42. TECHNIQUE: Lower extremity venous ultrasound performed using grayscale, color- flow, and spectral Doppler analysis. COMPARISON: No exams were available for comparison FINDINGS: The common femoral, femoral and popliteal veins demonstrate normal compressibility, augmentation, and color Doppler. The posterior tibial and peroneal veins are patent. No saphenous vein thrombosis or other superficial venous thrombosis is seen. No hematoma or Will's cyst is seen. IMPRESSION: Negative lower extremity ultrasound. No evidence of DVT. Quality:SDOH Health Related Social Needs: No Data to Display PFSH All Active Problems (Updated 02/07/24 @ 13:25 by MARA Viveros) Left leg pain (Acute) Localized swelling of left lower extremity (Acute) Pneumocystis jiroveci pneumonia (Acute) AIDS (acquired immune deficiency syndrome) (Acute) COVID-19 (Acute) Pneumonia (Acute) Thrombocytopenia (Chronic) Hypoxia (Acute) COVID-19 virus infection (Acute) COPD exacerbation (Acute) Hypoxemia (Acute) Pneumonia (Acute) Pulmonary nodules (Acute) Chest pain at rest (Acute) Coronary artery disease (Chronic) Activity of daily living alteration (Acute) Pulmonary infiltrate (Acute) 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) Respiratory failure with hypoxia (Acute) COPD (chronic obstructive pulmonary disease) (Chronic) RODRIGUEZ (dyspnea on exertion) (Acute) sat 78 [address] to office Chronic obstructive pulmonary disease with hypoxia (Acute) Unexplained weight loss (Acute) Pneumonia 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 (Acute ~02/2021) Odynophagia (Acute) Adult failure to thrive (Acute) Vitamin D deficiency (Acute) Hypomagnesemia (Acute) 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) COVID (Acute) February 2019 Elevated troponin (Acute) Headache (Acute) Tobacco abuse (Acute) Medical History COPD (chronic obstructive pulmonary disease) HTN (hypertension) Restrictive airway disease Surgical History No significant past surgical history Social History Smoking/Tobacco Use Status: Current every day Smoking risk assessment performed?: Yes Alcohol Intake: current Alcohol Intake frequency: holidays/special occasions only Drug use: Occasionally Substance use type: marijuana Details: trying to quit smoking 02/06/24 Housing: homeless Do you feel safe at home: Yes Do you feel safe in your relationship?: Yes Additional Social history: living in [facility] currently 02/06/24
== END 2024-02-07 13:41 | disposition home or self-care (01) ==
LOC: ER 13:42
PROVIDERS: Emergency Provider Physician Assistant; PCP Family Medicine
DX: M79.662 Pain in left lower leg (principal); I10 Essential (primary) hypertension; J44.9 Chronic obstructive pulmonary disease, unspecified; I25.10 Atherosclerotic heart disease of native coronary artery without angina pectoris; F17.200 Nicotine dependence, unspecified, uncomplicated; Z99.81 Dependence on supplemental oxygen; Z59.00 Homelessness unspecified
CPT/HCPCS: 99282

== ENCOUNTER 2024-04-18 07:24 | Emergency (ER) | payer MEDICARE, MEDICAID, SELFPAY ==
[2024-04-18] VITALS (33 sets, daily range): BP systolic 116–200; BP diastolic 64–137; PULSE 98–145; RESP 23–45; TEMP 36.6–37; O2SAT 82–100
--- NOTE | 2024-04-18 07:15 | RT.EKG_ITS ---
APPROVED REPORT Exam: Resting ECG Reason for Exam: SOB Patient Location: E HR:134 bpm ECG Measurements Heart Rate 134 AXIS MT 143 P 91 QRSd 95 QRS 4 QT 279 T 77 QTc 417 Conclusion Sinus tachycardia, rate 134 No interval abnormalities Q wave II, III, aVF, unchanged from priors No STEMI
--- NOTE | 2024-04-18 07:15 | DI.RAD_ITS ---
Exam(s) XR PORTABLE CHEST AP EXAM: XR PORTABLE CHEST AP CLINICAL HISTORY: Shortness of breath. TECHNIQUE: 2D digital imaging was performed. COMPARISON: CR,XR XR PORTABLE CHEST AP from 07/15/[address] CHEST PE CTA from 04/18/2024 FINDINGS: Single AP portable view. Heart size is upper normal. The mediastinum is not widened. Right lung is clear. Are mild increased markings in the lateral aspect of the left upper lobe. No p leural effusions. IMPRESSION: Mild left upper lobe infiltrate seen laterally. There are no pleural effusions. DATA REPOSITORY: RADIATION DOSE DELIVERED:
--- NOTE | 2024-04-18 07:46 | ED.GENADUL_ITS ---
Discharge Plan Disposition Patient Disposition: Against Medical Advice Condition: Fair Discharge Details Clinical Impression: Acute hypoxic respiratory failure, COPD exacerbation, HIV positive Primary Care Provider: Erwin Sahu ED Provider: Drea Denton Home Meds and New Rx's Prescriptions: New azithromycin 250 mg tablet 250 mg PO DAILY 4 Days Qty: 4 0RF Rx Instructions: start on day 2 of therapy (04/19/2024) prednisone 20 mg tablet 40 mg PO DAILY 4 Days Qty: 8 0RF Rx Instructions: Start 04/19/2024 No Action Biktarvy 50-200-25 mg tablet 1 tab PO DAILY (DME) Oxygen Tank See Rx Instructions .Route Qty: 1 0RF Rx Instructions: 1 LPM with exertion Trelegy Ellipta 100-62.5-25 mcg blister with device 1 inh inhalation DAILY Qty: 60 12RF pantoprazole 40 mg tablet,delayed release (DR/EC) See Rx Instructions .ROUTE .COMPLEX Qty: 60 12RF Dose Instruction: TAKE ONE TABLET BY MOUTH TWICE A DAY Rx Instructions: TAKE ONE TABLET BY MOUTH TWICE A DAY amlodipine 5 mg Tablet 5 mg PO DAILY Qty: 30 0RF albuterol sulfate 90 mcg/actuation HFA aerosol inhaler 2 puff INHALATION Q4H PRN PRN Rx Instructions: 2 PUFFS Q4-6H PRN ascorbic acid (vitamin C) [Vitamin C] 500 mg Tablet 1,000 mg PO BID Qty: 112 0RF cholecalciferol (vitamin D3) 25 mcg (1,000 unit) Tablet 2,000 units PO DAILY Qty: 30 0RF venlafaxine 75 mg capsule,extended release 24hr 1 cap PO DAILY Patient Comments: TAKE ONE CAPSULE BY MOUTH EVERY DAY Discharge Instructions Instructions: COPD Exacerbation, Adult ED Additional Instructions: You were seen in the emergency department today for evaluation of shortness of breath and low oxygen in the setting of a COPD exacerbation. In our department you received breathing treatments, steroids, and magnesium. You had an x-ray and a chest CT that did not show any sign of pneumonia or blood clot, but it is possible that you have bronchitis which can be caused by bacteria or viruses. Your COVID test was negative. As we discussed, your oxygen needs are high enough and your vital signs concerning enough that we recommended admission to the hospital for ongoing breathing treatments, intravenous antibiotics, and oxygen support. At this time you have decided that you will be leaving the hospital AGAINST MEDICAL ADVICE. As we discussed, I am concerned that failure to be admitted to the hospital and receive treatment for your condition could result in worsening breathing, low oxygen, and even . You understand these risks and have the capacity to refuse treatment and admission. You can always return to the emergency departm ent at which time we will reevaluate you and make recommendations based on your condition at that time. I did prescribe you a course of prednisone as well as the remainder of your antibiotics orally, please start both of these medications tomorrow and take them all until they are gone. Please use your home oxygen and attempt to keep your oxygen saturations greater than 90%. Please follow-up with your primary care provider in the next few days to discuss this visit and any symptoms that change, worsen, or persist. Thank you for allowing us to be part of your care. HPI General Mode of arrival: ambulatory . Date/Time Provider Initiated Documentation: 04/18/24 07:26 . Limitations to Documentation: no limitations . Information obtained by: patient and old records reviewed . HPI Narrative: HPI: This is a patient with a past medical history significant for HIV, COPD, presenting for evaluation of shortness of breath. The patient reports that this started over the last night, has been using his albuterol at home, states that he has home O2 but does not wear it. He states that he felt hot and cold, and had significant increase in his work of breathing. Arrived to the hospital tachycardic, tachypneic, and cyanotic, with an oxygen saturation of 82% on room air. He was brought back immediately to a room for evaluation. Denies pain, history otherwise limited by the patient's notable shortness of breath. He does state that he has a DNR, would like to discuss intubation if needed, reports his goal is to not feel so short of breath anymore. Exam: Gen: Awake and alert, in significant respiratory distress HEENT: Non-icteric sclera Neck: Supple Lungs: Tachypnea, tripoding, minimal air movement appreciated, trace end expiratory wheezes appreciated most audibly in the left lung CV: Appears well perfused, heart with tachycardic rate but regular rhythm, strong distal pulses Abdomen: Non-distended MSK: Moves 4 extremities without apparent limitation in ROM. No peripheral edema, no unilateral calf swelling or tenderness Skin: Visualized skin without rashes. Neuro: Normal Gait, no obvious focal deficits or facial asymmetry. Speaks in full, clear sentences. Psych: Appropriate for situation. MDM: This is a 64-year-old male patient presenting for evaluation of shortness of breath and hypoxia. Differential includes but is not limited to COPD exacer bation, considered hypoxic respiratory failure, infectious abnormalities including URI, bronchitis, pneumonia. Considered pneumothorax, pulmonary edema and pleural effusion. No fever on arrival to our emergency department, but certainly considered opportunistic infections in the setting of his HIV, including bacteremia. No nuchal rigidity to suggest meningitis. We provided the patient with a duo nebulizer treatment, magnesium and Solu- Medrol. He was placed on oxygen by facemask and had improvement in his oxygenation to 95%. He also reports an improvement in his work of breathing with the nebulizer treatment. We will obtain an EKG, laboratory studies to include CBC, CMP, magnesium, troponin, VBG, and Fluvid. I will obtain a portable chest x-ray. ED Course: EKG reviewed by myself, showing a sinus tachycardia with no evidence of STEMI. After 3 duo nebulizer treatments, the patient has improved air movement, his oxygenation is 97% on 6 L by simple mask, but he remains notably tachypneic and tachycardic with grunting respirations and decreased exercise tolerance. For this reason I added on a D-dimer. I did provide the patient with ceftriaxone and azithromycin given his COPD exacerbation concern for infectious source. I independently interpreted the laboratory studies, which show no significant leukocytosis, anemia, or thrombocytopenia. The chemistry panel is without juan manuel dence of electrolyte abnormality, kidney dysfunction, or liver injury. VBG shows no acidosis or hypercarbia, Fluvid negative, troponin is low x 2 checks without interval delta change. D-dimer was elevated to 700s. Chest x-ray shows no focal abnormalities, and we did proceed with CT pulmonary embolism study which shows a question of peribronchial thickening in the left upper lobe concerning for bronchitis, no pulmonary embolism or lobar pneumonia. On reevaluation, the patient remains with a new oxygen requirement, intermittently hypoxic to the low 80s, on 10 L by simple mask and now saturating 95%. I recommended admission for his hypoxic respiratory failure in the setting of COPD exacerbation. At this time, the patient states that he is going to leave the hospital, and understands that this is an AGAINST MEDICAL ADVICE decision. The patient demonstrates capacity to make this choice, understands the risks of leaving the hospital, which include worsening shortness of breath, low oxygen saturations, and . He understands the benefits of hospitalization include ongoing respiratory support, oxygen, medications, intravenous antibiotics. The patient understands that he can return to the emergency department at any time, states that he has access to his home O2 which he will use and try to keep his saturations greater than 90%. For harm reduction I did provide the patient with prescriptions for a prednisone burst as well as the remainder of his course of azithromycin, and refilled his albuterol metered-dose inhaler. The patient left our facility without incident, AGAINST MEDICAL ADVICE. Drea Denton MD Related Data Home Medications ?Medication ?Instructions ?Recorded ?Confirmed amlodipine 5 mg tablet 5 mg PO DAILY #30 tabs 07/25/18 04/18/24 albuterol sulfate 90 mcg/actuation 2 puff inhalation Q4H PRN PRN 03/03/21 04/18/24 aerosol inhaler ascorbic acid (vitamin C) 500 mg 1,000 mg (2 x 500 mg) PO BID #112 03/06/21 04/18/24 tablet (Vitamin C) tabs cholecalciferol (vitamin D3) 25 2,000 units PO DAILY #30 tabs 03/06/21 04/18/24 mcg (1,000 unit) tablet Oxygen #1 ea 06/06/21 04/18/24 fluticasone fur. 100 mcg-umeclid 1 inh inhalation DAILY #60 ea 06/07/21 04/18/24 62.5 mcg-vilant 25 mcg inhalat.powder (Trelegy Ellipta) venlafaxine 75 mg capsule,extended 1 cap PO DAILY 07/15/21 04/18/24 release 24 hr bictegravir 50 mg-emtricitabine 1 tab PO DAILY 09/12/21 04/18/24 200 mg-tenofovir alafenam 25 mg tablet (Biktarvy) pantoprazole 40 mg tablet,delayed See Rx Instructions .Route 10/15/22 04/18/24 release .COMPLEX #60 tabs azithromycin 250 mg tablet 250 mg PO DAILY 4 days #4 tabs 04/18/24 prednisone 20 mg tablet 40 mg (2 x 20 mg) PO DAILY 4 days 04/18/24 #8 tabs Previous Rx's ?Medication ?Instructions ?Recorded amlodipine 5 mg tablet 5 mg PO DAILY #30 tabs 07/25/18 ascorbic acid (vitamin C) 500 mg 1,000 mg (2 x 500 mg) PO BID #112 03/06/21 tablet (Vitamin C) tabs cholecalciferol (vitamin D3) 25 2,000 units PO DAILY #30 tabs 03/06/21 mcg (1,000 unit) tablet Oxygen #1 ea 06/06/21 fluticasone fur. 100 mcg-umeclid 1 inh inhalation DAILY #60 ea 06/07/21 62.5 mcg-vilant 25 mcg inhalat.powder (Trelegy Ellipta) pantoprazole 40 mg tablet,delayed See Rx Instructions .Route 10/15/22 release .COMPLEX #60 tabs azithromycin 250 mg tablet 250 mg PO DAILY 4 days #4 tabs 04/18/24 prednisone 20 mg tablet 40 mg (2 x 20 mg) PO DAILY 4 days 04/18/24 #8 tabs Allergies Allergy/AdvReac Type Severity Reaction Status Date / Time nut - unspecified Allergy Severe Anaphylaxsi Verified 02/07/24 13:09 s latex Allergy Hives Verified 02/07/24 13:09 General Stated Complaint: RespSymp LILI: 2 Course Vital Signs Vital signs: Vital Signs Pulse 143 H 04/18/24 07:28 Pulse Oximetry 85 L 04/18/24 07:28 Temperature 37 C 04/18/24 07:40 Temperature Source Oral 04/18/24 07:39 Pulse 138 H 04/18/24 07:40 Pulse 137 H 04/18/24 07:40 Respiratory Rate 30 H 04/18/24 07:40 Blood Pressure 160/93 H 04/18/24 07:39 Blood Pressure Mean 116 04/18/24 07:31 Blood Pressure Position Sitting 04/18/24 07:39 Pulse Oximetry 95 04/18/24 07:40 Oxygen Delivery Method Room Air 04/18/24 07:39 Oxygen Flow Rate 0 04/18/24 07:39 Pain Level 8 04/18/24 07:39 Comment 8L 04/18/24 07:40 Lab/Test Results Lab/Test Results: 04/18/24 07:32 Blood Blood Culture - Pending 03/08/25 07:32 Blood Blood Culture - Pending Medical Decision Making Quality:SDOH Health Related Social Needs: No Data to Display PFSH All Active Problems (Updated 04/18/24 @ 10:45 by Drea Denton MD) HIV positive (Acute) Acute hypoxic respiratory failure (Acute) Pneumocystis jiroveci pneumonia (Acute) AIDS (acquired immune deficiency syndrome) (Acute) COVID-19 (Acute) Pneumonia (Acute) Thrombocytopenia (Chronic) Hypoxia (Acute) COVID-19 virus infection (Acute) COPD exacerbation (Acute) Hypoxemia (Acute) Pneumonia (Acute) Pulmonary nodules (Acute) Chest pain at rest (Acute) Coronary artery disease (Chronic) Activity of daily living alteration (Acute) Pulmonary infiltrate (Acute) 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) Respiratory failure with hypoxia (Acute) COPD (chronic obstructive pulmonary disease) (Chronic) RODRIGUEZ (dyspnea on exertion) (Acute) sat [address] to office Chronic obstructive pulmonary disease with hypoxia (Acute) Unexplained weight loss (Acute) Pneumonia 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 (Acute ~02/2021) Odynophagia (Acute) Adult failure to thrive (Acute) Vitamin D deficiency (Acute) Hypomagnesemia (Acute) 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) COVID (Acute) February 2019 Elevated troponin (Acute) Headache (Acute) Tobacco abuse (Acute) Medical History COPD (chronic obstructive pulmonary disease) HTN (hypertension) Restrictive airway disease Surgical History No significant past surgical history Social History Smoking/Tobacco Use Status: Current every day Smoking risk assessment performed?: Yes Alcohol Intake: current Alcohol Intake frequency: holidays/special occasions only Drug use: Occasionally Substance use type: marijuana Details: trying to quit smoking 02/06/24 Housing: other Do you feel safe at home: Yes Do you feel safe in your relationship?: Yes Additional Social history: living in [facility] currently 02/06/24
[2024-04-18] MEDS: Albuterol/Ipratropium 3 ML UPD VIAL UPD ×2 (07:57)
[2024-04-18] MEDS: MAGNESIUM SULFATE 2 GM/50 ML BAG IV_INF (07:57)
[2024-04-18] MEDS: methylPREDNISolone SUCC 125 MG VIAL IVP (07:58)
[2024-04-18] MEDS: Albuterol/Ipratropium 3 ML UPD VIAL (08:00)
[2024-04-18 08:03] LABS: Abs Immature Grans 0.03 10^3/uL (0.0-0.06); Absolute Basophil Count 0.03 10^3/uL (0.0-0.2); Absolute Eosinophil Count 0.11 10^3/uL (0.0-0.7); Absolute Lymphocyte Count 0.54 10^3/uL (1.2-3.4); Absolute Monocyte Count 0.38 10^3/uL (0.1-0.8); Absolute Neutrophil Count 5.39 10^3/uL (1.2-6.7); Basophils % 0.5 %; Eosinophils % 1.7 %; HCT 50.5 % (40.0-50.0); HGB 16.9 g/dL (13.5-17.5); Immature Grans % 0.5 %; Lymphocytes % 8.3 %; MCH 30.1 pg (27.0-33.0); MCHC 33.5 % (32.0-36.0); MCV 90 fL (80-95); MPV 9.4 fL (8.0-11.0); Monocytes % 5.9 %; Neutrophils % 83.1 %; Platelet Count 175 10^3/uL (130-400); RBC 5.62 10^6/uL (4.36-5.78); RDW 14.6 % (11.8-14.1); WBC 6.48 10^3/uL (4.4-10.8)
[2024-04-18 08:10] LABS: BE (Venous) 2 mmol/L (-2-3); HCO3 (Venous) 27 mmol/L (23-28); TCO2 (Venous) 28 mmol/L (24-29); pCO2 (Venous) 46 mmHg (41-51); pH (Venous) 7.37 (7.31-7.41); pO2 (Venous) 34 mmHg
[2024-04-18 08:11] LABS: O2 Sat (Venous) 63 %
[2024-04-18 08:32] LABS: ALT 36 U/L (16-63); AST 27 U/L (15-37); Albumin 3.7 g/dL (3.4-5.0); Alkaline Phosphatase 134 U/L (46-116); Anion Gap 11.6 mmol/L (3-11); BUN 14 mg/dL (7-18); Bilirubin, Total 0.4 mg/dL (0.2-1.0); CO2 28.4 mmol/L (21.0-32.0); CREATININE 1.2 mg/dL (0.70-1.30); Calcium 8.9 mg/dL (8.5-10.1); Chloride 98 mmol/L (98-107); Estimated GFR 68.38 (mL/min/1.73m2); Glucose 101 mg/dL (74-106); Magnesium 1.2 mg/dL; Potassium 3.9 mmol/L (3.5-5.1); Sodium 138 mmol/L (136-145); Total Protein 7.6 g/dL (6.4-8.2); Troponin I 12 ng/L (<or=76)
[2024-04-18 08:42] LABS: Lab Add On Test DONE
[2024-04-18 09:08] LABS: D-Dimer 755 ng/mlFEU (<500)
--- NOTE | 2024-04-18 09:15 | DI.CT_ITS ---
Exam(s) CT CHEST PE CTA EXAM: CT CHEST PE CTA CLINICAL HISTORY: Elevated dimer, tachy hypoxic. TECHNIQUE: Imaging Protocol: CT angiography of the chest was performed using pulmonary embolus frances col. Multi planar reconstructions were performed. CONTRAST MATERIAL: Intravenous: Omnipaque 350 Contrast volume: 100 cc COMPARISON: CT CT CHEST PE CTA from 02/07/2024 CR,XR XR PORTABLE CHEST AP from 04/18/2024 FINDINGS: CHEST: Images are degraded by respiratory motion artifact. PULMONARY ARTERIES: There are no obvious intraluminal filling defects to suggest acute pulmonary embo li. LUNGS: There is some mild infiltrate in the left upper lobe corresponding to findings on chest x-ray. Remainder of the lung loredo are clear. There are no pleural effusions.. No ominous lung masses. MEDIASTINUM: There is no hilar nor mediastinal adenopathy. Visualized thyroid unremarkable. CARDIAC: Heart size is normal. There is no pericardial effusion. Caliber of the ascending thoracic aorta is upper normal. There is no evidence of aortic dissection. Ventricular ratio is 1:1. Ther e is no significant shift of the interventricular septum. PARTIALLY VISUALIZED UPPERMOST ABDOMEN: No obvious findings OSSEOUS: No significant osseous lesions.. No fractures IMPRESSION: 1. No evidence of acute pulmonary emboli nor pulmonary infarction..No pleural effusions. 2. There is mild infiltrate in the left upper lobe. 3. No intrathoracic adenopathy evident RADIATION DOSE DELIVERED: 70.78mGy.cm Total DLP DATA REPOSITORY: All CT scans at this facility are submitted to the National Radiology Data Registry (NRDR) Dose Index Registry (DIR) with the [employer] ([employer]). RADIATION OPTIMIZATION: All CT scans at this facility use at least one of these dose optimization te chniques: automated exposure control; mA and/or kV adjustment per patient size (includes targeted exa ms where dose is matched to clinical indication); or iterative reconstruction.
[2024-04-18] MEDS: AZITHROMYCIN 500 MG in Normal Saline 250 ML 250 MG IVPB (09:22)
[2024-04-18] MEDS: cefTRIAXone 1 GM/50 ML BAG IVPB (09:22)
--- NOTE | 2024-04-18 09:22 | DI.VRAD_ITS ---
PROCEDURE INFORMATION: Exam: XR Chest Exam date and time: 04/18/2024 8:23 AM Age: 64 years old Clinical indication: Other: Shortness of breath TECHNIQUE: Imaging protocol: Radiologic exam of the chest. Views: 1 view. COMPARISON: CT CHEST PE CTA 02/07/2024 1:25 AM FINDINGS: Lungs: Emphysema. No focal consolidation. Pleural spaces: Unremarkable. No pleural effusion. No pneumothorax. Heart/Mediastinum: Unremarkable. No cardiomegaly. Bones/joints: Unremarkable. IMPRESSION: No acute findings. Dictated and Authenticated by: Emily Ruffin MD. Orderin St. Laci Shepard MD
[2024-04-18 09:34] LABS: COVID-19 PCR Negative (Negative); Influenza A PCR Negative (Negative); Influenza B PCR Negative (Negative); RSV PCR Negative (Negative)
[2024-04-18 09:35] LABS: Source Nasopharynx
[2024-04-18 09:39] LABS: Troponin I 11 ng/L (<or=76)
[2024-04-18] MEDS: Normal Saline - Diluent 50 ML VIAL IJ (10:09)
[2024-04-18] MEDS: Omnipaque 350 MG/ML 100 ML BTL IJ (10:10)
--- NOTE | 2024-04-18 10:37 | DI.VRAD_ITS ---
PROCEDURE INFORMATION: Exam: CTA Chest With Contrast Exam date and time: 04/18/2024 10:10 AM Age: 64 years old Clinical indication: Other: Elevated dimer, tachy hypoxic TECHNIQUE: Imaging protocol: Computed tomographic angiography of the chest with contrast. Exam focused on the arteries. 3D rendering (Not supervised by radiologist): MIP and/or 3D reconstructed images were created by the technologist. Radiation optimization: All CT scans at this facility use at least one of these dose optimization techniques: automated exposure control; mA and/or kV adjustment per patient size (includes targeted exams where dose is matched to clinical indication); or iterative reconstruction. Contrast material: OMNI 350; Contrast volume: 100 ml; Contrast route: INTRAVENOUS (IV); COMPARISON: CT CHEST PE CTA 02/07/2024 1:25 AM FINDINGS: Pulmonary arteries: Negative for acute pulmonary embolism. Aorta: Unremarkable. No aortic aneurysm. No aortic dissection. Lungs: Mild bronchial wall thickening within the left upper lobe, nonspecific bronchitis. Emphysema with upper lobe predominance. No focal consolidation. Pleural spaces: Unremarkable. No pneumothorax. No pleural effusion. Heart: Unremarkable. No cardiomegaly. No pericardial effusion. Lymph nodes: Unremarkable. No enlarged lymph nodes. Bones/joints: Unremarkable. No acute fracture. Soft tissues: Unremarkable. IMPRESSION: 1. Negative for acute pulmonary embolism. 2. Mild bronchial wall thickening within the left upper lobe, nonspecific bronchitis. Dictated and Authenticated by: Emily Ruffin MD. Orderin St. Laci Shepard MD
[2024-04-18] MEDS: Albuterol HFA 8 GM 60 PUFF INH IH (10:52)
== END 2024-04-18 11:04 | disposition left against medical advice (07) ==
PROVIDERS: Emergency Provider Emergency Medicine; PCP Family Medicine
DX: J96.01 Acute respiratory failure with hypoxia (principal); J44.1 Chronic obstructive pulmonary disease with (acute) exacerbation; B20 Human immunodeficiency virus [HIV] disease; F17.200 Nicotine dependence, unspecified, uncomplicated; Z53.29 Procedure and treatment not carried out because of patient's decision for other reasons
CPT/HCPCS: 36415; 71275; 80053; 82805; 87040; 87637; 93005; 94640; 96365; 96366; 96368; 96375; 99285; 71045; 83735; 84484; 85025; 85379; 93010; J0456; J0696; J2919; J3475; J3490; J7620

== ENCOUNTER 2024-04-19 11:57 | Inpatient (IN) | payer MEDICARE, MEDICAID, SELFPAY ==
[2024-04-19] VITALS (38 sets, daily range): BP systolic 122–148; BP diastolic 59–87; PULSE 68–102; RESP 3–40; TEMP 36.1–36.9; O2SAT 87–100
--- NOTE | 2024-04-19 11:45 | RT.EKG_ITS ---
APPROVED REPORT Exam: Resting ECG Reason for Exam: tachycardia Patient Location: E HR:77 bpm ECG Measurements Heart Rate 77 AXIS SD 125 P 0 QRSd 100 QRS 70 QT 366 T 64 QTc 415 Conclusion Sinus rhythm, rate 77 No interval abnormalities No STEMI Compared to priors, decreased rate
[2024-04-19] MEDS: Albuterol/Ipratropium 3 ML UPD VIAL 6 ML UPD (12:09)
[2024-04-19 12:11] LABS: BE (Venous) 4 mmol/L (-2-3); HCO3 (Venous) 29 mmol/L (23-28); Lactate 1.8 mmol/L (<or=2.0); O2 Sat (Venous) 40 %; TCO2 (Venous) 27 mmol/L (24-29); pCO2 (Venous) 54 mmHg (41-51); pH (Venous) 7.34 (7.31-7.41); pO2 (Venous) 25 mmHg
--- NOTE | 2024-04-19 12:15 | DI.RAD_ITS ---
Exam(s) XR CHEST 2V PA LATERAL EXAM: XR CHEST 2V PA LATERAL CLINICAL HISTORY: HIV, Resp distress. TECHNIQUE: 2D digital imaging was performed. COMPARISON: CR,XR XR PORTABLE CHEST AP from 04/18/2024 FINDINGS: 2 views: Heart size is normal. The mediastinum is not widened. There is subtle patchy infiltrate in the left upper lobe, as also evident on chest CT scan performed yesterday. There also appears to be some mild patchy infiltrate now evident in the right upper lobe. Remainder lung loredo are clear and there are no pleural effusions. IMPRESSION: Bilateral upper lobe subtle patchy infiltrates. No pleural effusions DATA REPOSITORY: RADIATION DOSE DELIVERED:
[2024-04-19 12:19] LABS: Abs Immature Grans 0.07 10^3/uL (0.0-0.06); Absolute Lymphocyte Count 0.72 10^3/uL (1.2-3.4); Absolute Monocyte Count 0.39 10^3/uL (0.1-0.8); Basophils % 0.6 %; HCT 45.8 % (40.0-50.0); HGB 15.4 g/dL (13.5-17.5); Immature Grans % 0.6 %; Lymphocytes % 5.7 %; MCHC 33.6 % (32.0-36.0); MCV 89 fL (80-95); MPV 9.8 fL (8.0-11.0); Monocytes % 3.1 %; Platelet Count 168 10^3/uL (130-400); RBC 5.14 10^6/uL (4.36-5.78); RDW-SD 49.4 fL; WBC 12.62 10^3/uL (4.4-10.8)
[2024-04-19 12:22] LABS: Absolute Basophil Count 0.08 10^3/uL (0.0-0.2); Absolute Neutrophil Count 11.36 10^3/uL (1.2-6.7)
[2024-04-19] MEDS: Albuterol/Ipratropium 3 ML UPD VIAL UPD ×3 (12:25→19:50)
[2024-04-19 12:44] LABS: LDH 173 U/L (85-227)
[2024-04-19 12:50] LABS: ALT 33 U/L (16-63); AST 21 U/L (15-37); Albumin 3.2 g/dL (3.4-5.0); Alkaline Phosphatase 103 U/L (46-116); Anion Gap 7.1 mmol/L (3-11); BUN 23 mg/dL (7-18); Bilirubin, Total 0.3 mg/dL (0.2-1.0); CO2 30.9 mmol/L (21.0-32.0); CREATININE 1.1 mg/dL (0.70-1.30); Calcium 9.3 mg/dL (8.5-10.1); Chloride 102 mmol/L (98-107); Glucose 119 mg/dL (74-106); NT-proBNP 514 pg/mL (<300); Potassium 4.6 mmol/L (3.5-5.1); Sodium 140 mmol/L (136-145); Total Protein 7.3 g/dL (6.4-8.2); Troponin I 7 ng/L (<or=76)
--- NOTE | 2024-04-19 13:06 | DI.VRAD_ITS ---
PROCEDURE INFORMATION: Exam: XR Chest Exam date and time: 04/19/2024 12:49 PM Age: 64 years old Clinical indication: Other: Hiv, resp distress TECHNIQUE: Imaging protocol: Radiologic exam of the chest. Views: 2 views. COMPARISON: CT CHEST PE CTA 04/18/2024 10:10 AM FINDINGS: Lungs: Multifocal patchy airspace disease. Pleural spaces: Unremarkable. No pleural effusion. No pneumothorax. Heart/Mediastinum: Unremarkable. No cardiomegaly. Bones/joints: Unremarkable. IMPRESSION: Bilateral multifocal pneumonia. Dictated and Authenticated by: Juan Carlos Louis MD. Orderin Ezekiel Gamble MD
--- NOTE | 2024-04-19 13:41 | ED.GENADUL_ITS ---
Discharge Plan Disposition Patient Disposition: Admit to [facility] Condition: Serious Discharge Details Clinical Impression: Respiratory failure with hypoxia, COPD (chronic obstructive pulmonary disease), HIV positive Admit Date/Time: 04/19/24 13:43 Admit Provider: Camacho Nunez Attending Provider: Camacho Nunez Primary Care Provider: Erwin Sahu ED Provider: Mavis Falcon General Date/Time Provider Initiated Documentation: 04/19/24 11:59 . HPI Narrative: The patient is a 64-year-old homeless male with a history of COPD, respiratory failure, hypertension, and GERD who presents with a report of dyspnea and COPD exacerbation. He states his symptoms started abruptly yesterday, which is when he presented to the emergency department. He states his symptoms feel consistent with COPD exacerbations in the past. He reports an inability to catch his breath despite using his home medications. He does have oxygen at home, but the concentrator is reportedly broken. He has been compliant with his antiretroviral medications and last followed up with pulmonology in 2021 reportedly. He has had COPD meds as prescribed. Related Data Home Medications ?Medication ?Instructions ?Recorded ?Confirmed amlodipine 5 mg tablet 5 mg PO DAILY #30 tabs 07/25/18 04/19/24 albuterol sulfate 90 mcg/actuation 2 puff inhalation Q4H PRN PRN 03/03/21 04/19/24 aerosol inhaler ascorbic acid (vitamin C) 500 mg 1,000 mg (2 x 500 mg) PO BID #112 03/06/21 04/19/24 tablet (Vitamin C) tabs cholecalciferol (vitamin D3) 25 2,000 units PO DAILY #30 tabs 03/06/21 04/19/24 mcg (1,000 unit) tablet Oxygen #1 ea 06/06/21 04/19/24 fluticasone fur. 100 mcg-umeclid 1 inh inhalation DAILY #60 ea 06/07/21 04/19/24 62.5 mcg-vilant 25 mcg inhalat.powder (Trelegy Ellipta) venlafaxine 75 mg capsule,extended 1 cap PO DAILY 07/15/21 04/19/24 release 24 hr bictegravir 50 mg-emtricitabine 1 tab PO DAILY 09/12/21 04/19/24 200 mg-tenofovir alafenam 25 mg tablet (Biktarvy) pantoprazole 40 mg tablet,delayed See Rx Instructions .Route 10/15/22 04/19/24 release .COMPLEX #60 tabs azithromycin 250 mg tablet 250 mg PO DAILY 4 days #4 tabs 04/18/24 04/19/24 prednisone 20 mg tablet 40 mg (2 x 20 mg) PO DAILY 4 days 04/18/24 04/19/24 #8 tabs Previous Rx's ?Medication ?Instructions ?Recorded amlodipine 5 mg tablet 5 mg PO DAILY #30 tabs 07/25/18 ascorbic acid (vitamin C) 500 mg 1,000 mg (2 x 500 mg) PO BID #112 03/06/21 tablet (Vitamin C) tabs cholecalciferol (vitamin D3) 25 2,000 units PO DAILY #30 tabs 03/06/21 mcg (1,000 unit) tablet Oxygen #1 ea 06/06/21 fluticasone fur. 100 mcg-umeclid 1 inh inhalation DAILY #60 ea 06/07/21 62.5 mcg-vilant 25 mcg inhalat.powder (Trelegy Ellipta) pantoprazole 40 mg tablet,delayed See Rx Instructions .Route 10/15/22 release .COMPLEX #60 tabs azithromycin 250 mg tablet 250 mg PO DAILY 4 days #4 tabs 04/18/24 prednisone 20 mg tablet 40 mg (2 x 20 mg) PO DAILY 4 days 04/18/24 #8 tabs Allergies Allergy/AdvReac Type Severity Reaction Status Date / Time nut - unspecified Allergy Severe Anaphylaxsi Verified 04/19/24 12:03 s latex Allergy Hives Verified 04/19/24 12:03 General Stated Complaint: SOB LILI: 3 Exam Narrative Exam Narrative: General Appearance: Patient is alert and oriented. Vital signs: Patient is in acute respiratory distress with respiratory failure. Off oxygen, his saturation is 86 to 88% at rest, requiring oxygen 2 L. HEENT: Within normal limits. Respiratory: Patient is in acute respiratory distress with intercostal muscle usage. Breath sounds are very diminished in the lower lobes, upper lobes unclear. Cardiovascular: Cardiac rate and rhythm are regular. Back, Musculoskeletal: No peripheral edema in the musculoskeletal system. No tenderness to distal extremities. Distal pulses are intact. Extremities: No peripheral edema. No tenderness to distal extremities. Distal pulses are intact. Skin: Warm and dry, no rash. Neurological: Normal. Course Vital Signs Vital signs: Vital Signs Pulse 94 H 04/19/24 11:59 Respiratory Rate 23 04/19/24 11:59 Pulse Oximetry 92 04/19/24 11:59 Temperature 36.1 C L 04/19/24 12:02 Pulse 100 H 04/19/24 12:32 Pulse 92 H 04/19/24 12:01 Respiratory Rate 26 H 04/19/24 12:25 Respiratory Effort Short of Breath, Labored, Accessory Muscle Use, Pursed Lip, Grunting, Tripod, Incrsd Work of Breathing 04/19/24 12:07 Respiratory Depth Normal 04/19/24 12:07 Respiratory Pattern Tachypnea 04/19/24 12:07 Blood Pressure 148/86 H 04/19/24 12:02 Blood Pressure Mean 107 04/19/24 12:00 Blood Pressure Position Supine 04/19/24 12:02 Pulse Oximetry 92 04/19/24 12:09 Oxygen Delivery Method Room Air 04/19/24 12:25 Oxygen Flow Rate 0 04/19/24 12:25 Pain Level 0 04/19/24 12:02 Comment 2L 04/19/24 12:01 Lab/Test Results Lab/Test Results: 04/19/24 12:03 Blood Blood Culture - Pending 04/19/24 12:03 Blood Blood Culture - Pending Laboratory Tests Range/Units 04/19/24 04/19/24 12:02 12:19 WBC (4.4-10.8) 10^3/uL 12.62 H RBC (4.36-5.78) 10^6/uL 5.14 Hgb (13.5-17.5) g/dL 15.4 Hct (40.0-50.0) % 45.8 MCV (80-95) fL 89 MCH (27.0-33.0) pg 30.0 MCHC (32.0-36.0) % 33.6 RDW (11.8-14.1) % 15.0 H Plt Count (130-400) 10^3/uL 168 MPV (8.0-11.0) fL 9.8 Immature Gran % % 0.6 Neutrophils % % 90.0 Lymphocytes % % 5.7 Monocytes % % 3.1 Eosinophils % % 0.0 Basophils % % 0.6 Nucleated RBC % (0.0-0.3) % 0.0 Absolute Neutrophils (1.2-6.7) 10^3/uL 11.36 H Absolute Lymphocytes (1.2-3.4) 10^3/uL 0.72 L Absolute Monocytes (0.1-0.8) 10^3/uL 0.39 Absolute Eosinophils (0.0-0.7) 10^3/uL 0.00 Absolute Basophils (0.0-0.2) 10^3/uL 0.08 VBG pH (7.31-7.41) 7.34 VBG pCO2 (41-51) mmHg 54 H VBG pO2 mmHg 25 VBG HCO3 (23-28) mmol/L 29 H VBG Total CO2 (24-29) mmol/L 27 VBG O2 Saturation % 40 VBG Base Excess (-2-3) mmol/L 4 H VBG Lactate (<or=2.0) mmol/L 1.8 Sodium (136-145) mmol/L 140 Potassium (3.5-5.1) mmol/L 4.6 Chloride (98-107) mmol/L 102 Carbon Dioxide (21.0-32.0) mmol/L 30.9 Anion Gap (3-11) mmol/L 7.1 BUN (7-18) mg/dL 23 H Creatinine (0.70-1.30) mg/dL 1.1 Est GFR (CKD-EPI 2020) (mL/min/1.73m2) 75.90 Glucose (74-106) mg/dL 119 H Calcium (8.5-10.1) mg/dL 9.3 Total Bilirubin (0.2-1.0) mg/dL 0.3 AST (15-37) U/L 21 ALT (16-63) U/L 33 Alkaline Phosphatase (46-116) U/L 103 Lactate Dehydrogenase (85-227) U/L 173 Troponin I (<or=76) ng/L 7 NT-Pro-B Natriuret Pep (<300) pg/mL 514 H Total Protein (6.4-8.2) g/dL 7.3 Albumin (3.4-5.0) g/dL 3.2 L Medical Decision Making Laboratory Studies VBG is reassuring. Mild leukocytosis of 12,000 likely secondary to prednisone. Chemistry is reassuring. BNP is slightly elevated. LDH is negative. Imaging Chest x-ray was repeated. CTA of chest yesterday did not show PE, possible upper lobe infiltrate. Testing Influenza, COVID-19, and RSV tests were negative yesterday. Initial Assessment: 64-year-old homeless male with history of COPD, respiratory failure, hypertension, GERD presents with dyspnea and COPD exacerbation. Symptoms started abruptly yesterday. Denies fever, chills, sick contacts, calf p ain, swelling, or history of coagulopathy. Compliant with antiretroviral medications and COPD meds. Last pulmonology follow-up in 2021. Differential Diagnosis: - COPD exacerbation: Dyspnea, acute respiratory distress, intercostal muscle usage, diminished breath sounds in lower lobes. VBG reassuring, mild leukocytosis likely due to prednisone. CTA chest negative for PE, possible upper lobe infiltrate. On azithromycin. PCP pneumonia considered but unlikely due to negative LDH and inconsistent chest x-ray findings. Requires hospital admission for observation and management. - Respiratory failure: Acute respiratory distress, off oxygen, saturation 86-88% at rest, requiring 2 L oxygen. No home oxygen availability. Requires hospital admission for further management and monitoring. ED Course: - VBG reassuring. - Mild leukocytosis of 12,000, likely secondary to prednisone. - Chemistry reassuring. - Slightly elevated BNP. - Chest x-ray repeated. - CTA chest yesterday negative for PE, possible upper lobe infiltrate. - On azithromycin. - Considered PCP pneumonia, low suspicion due to negative LDH and chest x-ray. - Flu, COVID, and RSV negative yesterday. - Full dose of prednisone 40 mg and azithromycin taken today. - Three DuoNeb treatments administered. - Line placed. Final Assessment: Patient with COPD exacerbation and respiratory failure requiring hospital admission for further observation and management. Diagnostic considerations included COPD exacerbation and respiratory failure, with low suspicion for PCP pneumonia. Clinical Impression: - COPD exacerbation - Respiratory failure Disposition: - Admission: Patient requires hospital admission for further management and monitoring. MDM Components Evaluation: - Number of Differential Diagnoses or Management Options: COPD exacerbation, respiratory failure, PCP pneumonia. - Amount and Complexity of Data Reviewed: VBG, leukocytosis, chemistry, BNP, chest x-ray, CTA chest, LDH, flu/COVID/RSV tests. - Risk of Complication and Morbidity or Mortality: High risk due to acute respiratory distress, respiratory failure, and need for hospital admission. Quality:[facility] Health Related Social Needs: No Data to Display Critical Care Time Critical Care Time Attestation: 35 minutes of critical care time secondary to acute hypoxic respiratory failure requiring oxygen supplementation DuoNeb administration and admission to the hospital interpretation of chest x-ray and imaging [facility] All Active Problems (Updated 04/19/24 @ 14:43 by MARA Parker) HIV positive (Acute) Acute hypoxic respiratory failure (Acute) Pneumocystis jiroveci pneumonia (Acute) AIDS (acquired immune deficiency syndrome) (Acute) COVID-19 (Acute) Pneumonia (Acute) Thrombocytopenia (Chronic) Hypoxia (Acute) COVID-19 virus infection (Acute) COPD exacerbation (Acute) Hypoxemia (Acute) Pneumonia (Acute) Pulmonary nodules (Acute) Chest pain at rest (Acute) Coronary artery disease (Chronic) Activity of daily living alteration (Acute) Pulmonary infiltrate (Acute) 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) Respiratory failure with hypoxia (Acute) COPD (chronic obstructive pulmonary disease) (Chronic) RODRIGUEZ (dyspnea on exertion) (Acute) sat [address] to office Chronic obstructive pulmonary disease with hypoxia (Acute) Unexplained weight loss (Acute) Pneumonia 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 (Acute ~02/2021) Odynophagia (Acute) Adult failure to thrive (Acute) Vitamin D deficiency (Acute) Hypomagnesemia (Acute) 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) COVID (Acute) February 2019 Elevated troponin (Acute) Headache (Acute) Tobacco abuse (Acute) Medical History COPD (chronic obstructive pulmonary disease) HTN (hypertension) Restrictive airway disease Surgical History No significant past surgical history Social History Smoking/Tobacco Use Status: Current every day Smoking risk assessment performed?: Yes Alcohol Intake: current Alcohol Intake frequency: holidays/special occasions only Drug use: Occasionally Substance use type: marijuana Details: trying to quit smoking 02/06/24 Housing: other Do you feel safe at home: Yes Do you feel safe in your relationship?: Yes Additional Social history: living in [facility] currently 02/06/24
[2024-04-19 13:44] LABS: Lab Add On Test DONE
--- NOTE | 2024-04-19 13:44 | HPE_ITS ---
Date of service: 04/19/24 Time of Service: 13:44 Assessment and Plan Assessment and plan (1) Pneumonia: Status: Acute Assessment and plan: start azithromycin/ceftriaxone empirically day 1/5. Continue Symbicort/spiriva. Encourage pulmonary toilet. scheduled duoneb, albuterol prn wean oxygen as able respiratory consult for oxygen at home (concentrator not working, has prescription for 1 L NC with ambulation, may qualify for more) (2) COPD (chronic obstructive pulmonary disease): Assessment and plan: continue steroids for acute copd exacerbation. as above (3) AIDS (acquired immune deficiency syndrome): Status: Acute Assessment and plan: followed by [facility], t-cell subsets, HIV 1 RNA pending last CD4 11, absolute CD4 268 (4) DVT prophylaxis: Status: Acute Assessment and plan: SCDs. enoxaparin daily discussed with Dr Nunez History of Present Illness Narrative: patient returns to the ED with ongoing shortness of breath and now apparently home oxygen concentrator not working. found to be oxygenating in the mid 80's on room air. taking steroids and azithromycin as directed. hospitalist asked to admit for acute hypoxic respiratory failure Review of Systems All systems reviewed & are unremarkable except as noted in HPI and below PFSH All Active Problems (Updated 04/19/24 @ 14:56 by Shelbi Schroeder NP) DVT prophylaxis (Acute) HIV positive (Acute) Acute hypoxic respiratory failure (Acute) Pneumocystis jiroveci pneumonia (Acute) AIDS (acquired immune deficiency syndrome) (Acute) COVID-19 (Acute) Pneumonia (Acute) Thrombocytopenia (Chronic) Hypoxia (Acute) COVID-19 virus infection (Acute) COPD exacerbation (Acute) Hypoxemia (Acute) Pneumonia (Acute) Pulmonary nodules (Acute) Chest pain at rest (Acute) Coronary artery disease (Chronic) Activity of daily living alteration (Acute) Pulmonary infiltrate (Acute) 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) Respiratory failure with hypoxia (Acute) COPD (chronic obstructive pulmonary disease) (Chronic) RODRIGUEZ (dyspnea on exertion) (Acute) sat [address] to office Chronic obstructive pulmonary disease with hypoxia (Acute) Unexplained weight loss (Acute) Pneumonia 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 (Acute ~02/2021) Odynophagia (Acute) Adult failure to thrive (Acute) Vitamin D deficiency (Acute) Hypomagnesemia (Acute) 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) COVID (Acute) February 2019 Elevated troponin (Acute) Headache (Acute) Tobacco abuse (Acute) Medical History COPD (chronic obstructive pulmonary disease) HTN (hypertension) Restrictive airway disease Surgical History No significant past surgical history Social History Smoking/Tobacco Use Status: Current every day Smoking risk assessment performed?: Yes Alcohol Intake: current Alcohol Intake frequency: holidays/special occasions only Drug use: Occasionally Substance use type: marijuana Details: trying to quit smoking 02/06/24 Housing: other Do you feel safe at home: Yes Do you feel safe in your relationship?: Yes Additional Social history: living in [facility] currently 02/06/24 Meds Allergies and Home Medications Allergies Allergy/AdvReac Type Severity Reaction Status Date / Time nut - unspecified Allergy Severe Anaphylaxsi Verified 04/19/24 12:03 s latex Allergy Hives Verified 04/19/24 12:03 Home Medications ?Medication ?Instructions ?Recorded ?Confirmed ?Type amlodipine 5 mg tablet 5 mg PO DAILY #30 tabs 07/25/18 04/19/24 Rx albuterol sulfate 90 mcg/actuation 2 puff inhalation Q4H PRN PRN 03/03/21 04/19/24 History aerosol inhaler ascorbic acid (vitamin C) 500 mg 1,000 mg (2 x 500 mg) PO BID #112 03/06/21 04/19/24 Rx tablet (Vitamin C) tabs cholecalciferol (vitamin D3) 25 2,000 units PO DAILY #30 tabs 03/06/21 04/19/24 Rx mcg (1,000 unit) tablet Oxygen #1 ea 06/06/21 04/19/24 Rx fluticasone fur. 100 mcg-umeclid 1 inh inhalation DAILY #60 ea 06/07/21 04/19/24 Rx 62.5 mcg-vilant 25 mcg inhalat.powder (Trelegy Ellipta) venlafaxine 75 mg capsule,extended 1 cap PO DAILY 07/15/21 04/19/24 History release 24 hr bictegravir 50 mg-emtricitabine 1 tab PO DAILY 09/12/21 04/19/24 History 200 mg-tenofovir alafenam 25 mg tablet (Biktarvy) pantoprazole 40 mg tablet,delayed See Rx Instructions .Route 10/15/22 04/19/24 Rx release .COMPLEX #60 tabs azithromycin 250 mg tablet 250 mg PO DAILY 4 days #4 tabs 04/18/24 04/19/24 Rx prednisone 20 mg tablet 40 mg (2 x 20 mg) PO DAILY 4 days 04/18/24 04/19/24 Rx #8 tabs Exam Const General: cooperative and no acute distress Orientation: alert, awake and oriented x3 HENMT Head: normal to inspection Ears: hearing grossly normal bilaterally General nose exam: external nose normal Face and sinus: normal facial exam Mouth: oral mucosae normal Eyes General: appearance normal, both eyes and all related structures Eyelids: eyelids normal EOM: EOM intact bilaterally Neck Neck: normal visual inspection Chest Chest: normal inspection of the chest Resp Effort & Inspection: normal respiratory effort and able to speak in complete sentences Auscultation: diminished lung sounds (throughout) Cardio Rhythm: regular rhythm GI Inspection: normal to inspection Palpation: soft and no guarding Skin General skin exam: no rashes or lesions noted Neuro General: patient alert, patient awake and no meningeal signs Cognition: normal cognition Speech: speech normal Gait: normal gait Motor: muscle tone normal throughout Sensory Exam: no sensory deficits noted Extrem General: normal to inspection, full ROM and capillary refill normal Psych Appearance: grossly normal Mental Status: mental status grossly normal Speech and Movement: speech and movement normal Affect: normal affect Thought Process: normal Results Labs 04/19/24 12:02 04/19/24 12:02 Labs: Laboratory Results - last 24 hr 04/19/24 04/19/24 12:02 12:19 WBC 12.62 H RBC 5.14 Hgb 15.4 Hct 45.8 MCV 89 MCH 30.0 MCHC 33.6 RDW 15.0 H Plt Count 168 MPV 9.8 Immature Gran % 0.6 Neutrophils % 90.0 Lymphocytes % 5.7 Monocytes % 3.1 Eosinophils % 0.0 Basophils % 0.6 Nucleated RBC % 0.0 Absolute Neutrophils 11.36 H Absolute Lymphocytes 0.72 L Absolute Monocytes 0.39 Absolute Eosinophils 0.00 Absolute Basophils 0.08 VBG pH 7.34 VBG pCO2 54 H VBG pO2 25 VBG HCO3 29 H VBG Total CO2 27 VBG O2 Saturation 40 VBG Base Excess 4 H VBG Lactate 1.8 Sodium 140 Potassium 4.6 Chloride 102 Carbon Dioxide 30.9 Anion Gap 7.1 BUN 23 H Creatinine 1.1 Est GFR (CKD-EPI 2020) 75.90 Glucose 119 H Calcium 9.3 Total Bilirubin 0.3 AST 21 ALT 33 Alkaline Phosphatase 103 Lactate Dehydrogenase 173 Troponin I 7 NT-Pro-B Natriuret Pep 514 H Total Protein 7.3 Albumin 3.2 L Add-On Test Request DONE Last Vital Signs Temp 36.1 C L 04/19/24 12:02 Pulse 100 H 04/19/24 12:32 Resp 26 H 04/19/24 12:25 BP 148/86 H 04/19/24 12:02 Pulse Ox 92 04/19/24 12:09 Time Spent Time spent with Patient: 55-74 minutes Time was spent: preparing to see the patient(eg.review tests), obtaining and/or reviewing separately otained hiistory, ordering medications,tests, procedures, indepentently interpreting results, counseling the patient and care coordination
--- NOTE | 2024-04-19 14:19 | W.PC.ACHO ---
Registration Status: Primary Language: Preferred Language: ED Information & Data Chief Complaint SOB 04/19/24 13:42 Triage Note here yesterday, left [place], 04/19/24 12:00 copd, home o2 wont work. SOb , cant speak in full sentences, Medical / Surgical History (Last Reviewed 07/16/21 @ 06:58 by Shiva Rain) COPD (chronic obstructive pulmonary disease) HTN (hypertension) Restrictive airway disease (Last Reviewed 07/16/21 @ 06:58 by Shiva Rain) No significant past surgical history Most Recent Vital Signs Temperature 36.1 C L 04/19/24 12:02 Pulse 100 H 04/19/24 12:32 Pulse 92 H 04/19/24 12:01 Respiratory Rate 26 H 04/19/24 12:25 Respiratory Effort Short of Breath, Labored, Accessory Muscle Use, Pursed Lip, Grunting, Tripod, Incrsd Work of Breathing 04/19/24 12:07 Respiratory Depth Normal 04/19/24 12:07 Respiratory Pattern Tachypnea 04/19/24 12:07 Blood Pressure 148/86 H 04/19/24 12:02 Blood Pressure Mean 107 04/19/24 12:00 Blood Pressure Position Supine 04/19/24 12:02 Pulse Oximetry 92 04/19/24 12:09 Oxygen Delivery Method Room Air 04/19/24 12:25 Oxygen Flow Rate 0 04/19/24 12:25 Pain Level 0 04/19/24 12:02 Comment 2L 04/19/24 12:01 Allergies nut - unspecified Allergy (Severe, Verified 04/19/24 12:03) Anaphylaxsis latex Allergy (Verified 04/19/24 12:03) Hives IV IV Catheter Type [Right Saline Lock Antecubital] IV Catheter Gauge [Right 18 Antecubital] Diagnostics 04/19/24 04/19/24 04/19/24 Range/Units 14:05 13:12 12:19 WBC (4.4-10.8) 10^3/uL RBC (4.36-5.78) 10^6/uL Hgb (13.5-17.5) g/dL Hct (40.0-50.0) % MCV (80-95) fL MCH (27.0-33.0) pg MCHC (32.0-36.0) % RDW (11.8-14.1) % Plt Count (130-400) 10^3/uL MPV (8.0-11.0) fL Immature Gran % % Neutrophils % % Lymphocytes % % Monocytes % % Eosinophils % % Basophils % % Nucleated RBC % (0.0-0.3) % Absolute Neutrophils (1.2-6.7) 10^3/uL Absolute Lymphocytes (1.2-3.4) 10^3/uL Absolute Monocytes (0.1-0.8) 10^3/uL Absolute Eosinophils (0.0-0.7) 10^3/uL Absolute Basophils (0.0-0.2) 10^3/uL VBG pH (7.31-7.41) VBG pCO2 (41-51) mmHg VBG pO2 mmHg VBG HCO3 (23-28) mmol/L VBG Total CO2 (24-29) mmol/L VBG O2 Saturation % VBG Base Excess (-2-3) mmol/L VBG Lactate (<or=2.0) mmol/L Sodium (136-145) mmol/L Potassium (3.5-5.1) mmol/L Chloride (98-107) mmol/L Carbon Dioxide (21.0-32.0) mmol/L Anion Gap (3-11) mmol/L BUN (7-18) mg/dL Creatinine (0.70-1.30) mg/dL Est GFR (CKD-EPI 2020) (mL/min/1.73m2) Glucose (74-106) mg/dL Calcium (8.5-10.1) mg/dL Total Bilirubin (0.2-1.0) mg/dL AST (15-37) U/L ALT (16-63) U/L Alkaline Phosphatase (46-116) U/L Lactate Dehydrogenase 173 (85-227) U/L Troponin I (<or=76) ng/L NT-Pro-B Natriuret Pep (<300) pg/mL Total Protein (6.4-8.2) g/dL Albumin (3.4-5.0) g/dL Procalcitonin % CD3 Cells Pending Absolute CD3 Count Pending % CD4 Cells Pending Absolute CD4 Count Pending CD4/CD8 Ratio Pending % CD8 Cells Pending Absolute CD8 Count Pending COVID-19 Source SARS-CoV-2 (PCR) HIV-1 RNA Quant Pending HIV-1 RNA Qualitative Pending Influenza Type A (PCR) Influenza Type B (PCR) RSV (PCR) Add-On Test Request 04/19/24 04/19/24 Range/Units 12:03 12:02 WBC 12.62 H (4.4-10.8) 10^3/uL RBC 5.14 (4.36-5.78) 10^6/uL Hgb 15.4 (13.5-17.5) g/dL Hct 45.8 (40.0-50.0) % MCV 89 (80-95) fL MCH 30.0 (27.0-33.0) pg MCHC 33.6 (32.0-36.0) % RDW 15.0 H (11.8-14.1) % Plt Count 168 (130-400) 10^3/uL MPV 9.8 (8.0-11.0) fL Immature Gran % 0.6 % Neutrophils % 90.0 % Lymphocytes % 5.7 % Monocytes % 3.1 % Eosinophils % 0.0 % Basophils % 0.6 % Nucleated RBC % 0.0 (0.0-0.3) % Absolute Neutrophils 11.36 H (1.2-6.7) 10^3/uL Absolute Lymphocytes 0.72 L (1.2-3.4) 10^3/uL Absolute Monocytes 0.39 (0.1-0.8) 10^3/uL Absolute Eosinophils 0.00 (0.0-0.7) 10^3/uL Absolute Basophils 0.08 (0.0-0.2) 10^3/uL VBG pH 7.34 (7.31-7.41) VBG pCO2 54 H (41-51) mmHg VBG pO2 25 mmHg VBG HCO3 29 H (23-28) mmol/L VBG Total CO2 27 (24-29) mmol/L VBG O2 Saturation 40 % VBG Base Excess 4 H (-2-3) mmol/L VBG Lactate 1.8 (<or=2.0) mmol/L Sodium 140 (136-145) mmol/L Potassium 4.6 (3.5-5.1) mmol/L Chloride 102 (98-107) mmol/L Carbon Dioxide 30.9 (21.0-32.0) mmol/L Anion Gap 7.1 (3-11) mmol/L BUN 23 H (7-18) mg/dL Creatinine 1.1 (0.70-1.30) mg/dL Est GFR (CKD-EPI 2020) 75.90 (mL/min/1.73m2) Glucose 119 H (74-106) mg/dL Calcium 9.3 (8.5-10.1) mg/dL Total Bilirubin 0.3 (0.2-1.0) mg/dL AST 21 (15-37) U/L ALT 33 (16-63) U/L Alkaline Phosphatase 103 (46-116) U/L Lactate Dehydrogenase (85-227) U/L Troponin I 7 (<or=76) ng/L NT-Pro-B Natriuret Pep 514 H (<300) pg/mL Total Protein 7.3 (6.4-8.2) g/dL Albumin 3.2 L (3.4-5.0) g/dL Procalcitonin Pending % CD3 Cells Absolute CD3 Count % CD4 Cells Absolute CD4 Count CD4/CD8 Ratio % CD8 Cells Absolute CD8 Count COVID-19 Source Cancelled SARS-CoV-2 (PCR) Cancelled HIV-1 RNA Quant HIV-1 RNA Qualitative Influenza Type A (PCR) Cancelled Influenza Type B (PCR) Cancelled RSV (PCR) Cancelled Add-On Test Request DONE Intake and Output - 24 Hour Total 04/19/24 11:57 thru 04/19/24 12:00 Weight 74.843 kg Falls Risk Assessment History of Falls Previous History 04/19/24 12:07 Contributing Factors Unstable,Medications 04/19/24 12:07 Ambulatory Aids Independent 04/19/24 12:07 Tubes/Lines None 04/19/24 12:07 Gait Evaluation W/no contributing factors 04/19/24 12:07 Cognition No cognitive impairment 04/19/24 12:07 Fall Total Score 31 04/19/24 12:07 Level of Risk Moderate Risk 04/19/24 12:07 Problems (Last Reviewed 07/16/21 @ 06:58 by Shiva Rain) AIDS (acquired immune deficiency syndrome) (Acute) Pneumonia (Acute) v v v v v v v v v Sending and/or Receiving Nurses: Please use comment section below to note any information pertinent to the patient hand-off not included above. Information / Comments: A&Ox 3, HR tachy at times, Lungs dim, bilateral pneumonia, blood cultures pending from yesterday, unhoused, [place] o2 concentrator not working, Left ER yesterday AMA, back w/ increased SOB, unsure if able to scrap picker rx from yesterday. 18G RAC, SOB w/ exertion, ambulates independently. Report received from: Jovana HENNESSY in ER at 1413
[2024-04-19 14:21] LABS: Procalcitonin 5.13 ng/mL
[2024-04-19] MEDS: cefTRIAXone 1 GM/50 ML BAG IVPB (15:51)
[2024-04-19] MEDS: Normal Saline Flush 10 ML SYR IVP (19:36)
[2024-04-19] MEDS: Acetaminophen 325 MG TAB 650 MG PO (19:36)
[2024-04-19] MEDS: Ascorbic Acid 500 MG TAB 1000 MG PO (19:36)
[2024-04-19] MEDS: Budesonide/Formoterol 80/4.5 6.9 GM 60 PUFF INH IH (19:53)
[2024-04-20] VITALS (13 sets, daily range): BP systolic 130–132; BP diastolic 81–85; PULSE 68–97; RESP 6–46; TEMP 36.8–37.2; O2SAT 89–96
[2024-04-20] MEDS: Acetaminophen 325 MG TAB 650 MG PO (05:06)
[2024-04-20] MEDS: Pantoprazole 40 MG TABCR PO (06:34)
[2024-04-20 06:59] LABS: Abs Immature Grans 0.03 10^3/uL (0.0-0.06); Absolute Basophil Count 0.03 10^3/uL (0.0-0.2); Absolute Eosinophil Count 0.01 10^3/uL (0.0-0.7); Absolute Lymphocyte Count 1.01 10^3/uL (1.2-3.4); Absolute Monocyte Count 0.47 10^3/uL (0.1-0.8); Absolute Neutrophil Count 7.06 10^3/uL (1.2-6.7); Basophils % 0.3 %; Eosinophils % 0.1 %; HCT 41.3 % (40.0-50.0); Immature Grans % 0.3 %; Lymphocytes % 11.7 %; MCH 29.8 pg (27.0-33.0); MCHC 33.9 % (32.0-36.0); MCV 88 fL (80-95); Monocytes % 5.5 %; Neutrophils % 82.1 %; Platelet Count 166 10^3/uL (130-400); RDW 14.9 % (11.8-14.1); RDW-SD 48.6 fL; WBC 8.61 10^3/uL (4.4-10.8)
[2024-04-20 07:29] LABS: ALT 25 U/L (16-63); AST 19 U/L (15-37); Albumin 2.7 g/dL (3.4-5.0); Alkaline Phosphatase 79 U/L (46-116); Anion Gap 8.2 mmol/L (3-11); BUN 17 mg/dL (7-18); Bilirubin, Total 0.3 mg/dL (0.2-1.0); CO2 28.8 mmol/L (21.0-32.0); CREATININE 1.1 mg/dL (0.70-1.30); Calcium 8.8 mg/dL (8.5-10.1); Chloride 102 mmol/L (98-107); Glucose 85 mg/dL (74-106); Potassium 4.1 mmol/L (3.5-5.1); Sodium 139 mmol/L (136-145); Total Protein 6.6 g/dL (6.4-8.2)
[2024-04-20] MEDS: Enoxaparin 40 MG/0.4 ML SYR SC (07:36)
[2024-04-20] MEDS: Normal Saline Flush 10 ML SYR IVP (07:37)
[2024-04-20] MEDS: amLODIPine 5 MG TAB PO (07:37)
[2024-04-20] MEDS: Azithromycin 250 MG TAB PO (07:37)
[2024-04-20] MEDS: Cholecalciferol (Vitamin D3) 1,000 UNIT TAB 2000 UNITS PO (07:37)
[2024-04-20] MEDS: predniSONE 20 MG TAB 40 MG PO (07:37)
[2024-04-20] MEDS: Ascorbic Acid 500 MG TAB 1000 MG PO (07:37)
[2024-04-20] MEDS: Venlafaxine 75 MG CAPCR PO (07:37)
[2024-04-20] MEDS: Albuterol/Ipratropium 3 ML UPD VIAL UPD ×2 (07:57→10:54)
[2024-04-20] MEDS: Tiotropium Bromide-Respimat 10 PUFF INH IH (07:57)
[2024-04-20] MEDS: Budesonide/Formoterol 80/4.5 6.9 GM 60 PUFF INH IH (07:57)
--- NOTE | 2024-04-20 09:16 | INITIAL_ITS ---
Date of service: 04/20/24 Time of Service: 09:17 Care Management Initial Assmt Initial Assessment Reason for Hospitalization: dyspnea and COPD exacerbation Functional Status/Living Situation Patient Presentation: Orlin presented to the ED yesterday, after presenting the day before when he was given antibiotics and sent home. Orlin's home O2 concentrator is broken, and he presented with dyspnea and RA O2 sats in the 80's. Today Orlin was sitting up in the bed when CM met with him. He was breathing a bit fast, but stated that he was hoping to go home, and that his sister was bringing in his concentrator, which incidentally only needed to be charged. Orlin lives at the [facility]. He stated that he is supported by community [employer] and also [facility]. He declined the offer for services. Town of Residence: [facility] Resides with: Alone Significant Other/Family: Local (brother, Azael, sister, Gosia and nephew Orlin) Natural Supports: family Employment Status: Retired (worked at [employer]) Instrumental Activities of Daily Living (ADLs): Independent Medications Medication Management: No Issues/Barriers identified Advance Directives Advance Directives: Do you have an Advance Directive: N 05/09/21 14:16 AD On File at [facility]: N 05/09/21 14:16 Date Asked 04/19/24 04/19/24 14:16 AD Date Reviewed COLST On File at [facility] COLST Date Scanned Code Status Resuscitation Status DNR/DNI Insurance Coverage/Financial Issues Insurance: [employer] [facility] [facility] Financial Issues: denied to Care Team Visit Care Team Role Provider Type Beena Townsend NP MD [facility] STAFF PHYSICIAN Erwin Sahu MD Primary Care Provider NON-[facility] STAFF PHYSICIAN Jess Camarena Other Providers MICE RAISER Estela Ortiz Other Providers MICE RAISER Dang Felipe Other Providers MICE RAISER Carmen Price RN Other Providers MICE RAISER Lisseth Nunez Other Providers MICE RAISER [facility] Provider PHYSICIANS WARNING ANALYST Camacho Nunez MD Admit Provider [facility] STAFF PHYSICIAN Attending Provider Discharge Potential Discharge Needs: PCP F/U Appt Anticipated Barriers to Discharge: None Identified Patient/Family Education Needs: Review discharge instructions, discuss Ask Me Three Plan: Anticipate that Orlin will be discharged home this afternoon with no new services. He will f/u with his PCP on 04/23 and with pulmonology on 06/03. He will continue per his plan of care and drive himself home. Social Determinants of Health Screening Social Determinants of Health last assessed: 04/20/24 Will the Patient Participate in the Screening?: Yes Do you worry about having a steady place to live?: yes What is your living situation today?: I do not have steady housing Problems where you live: pests such as bugs, ants or mice and mold In the past 12 months, have you had to go without electric, gas, oil or water in your home?: yes Have you or anyone in your house had to go without enough food to eat?: yes 1. Within the past 12 months, we worried whether our food would run out before we got money to buy more.: Often true 2. Within the past 12 months, the food we bought just didn't last and we didn't have money to get more.: Often true Referred to:: [employer] Has lack of transportation kept you from medical appointments or from doing things needed for daily living?: no Has anyone in your life made you feel unsafe or unsupported?: no How hard is it for you to pay for the very basics like food, housing, medical care, and heating? Would you say it is:: Very hard Do you want help finding or keeping work or a job?: I do not need or want help If for any reason you need help with day-to-day activities such as bathing, preparing meals, shopping, managing finances, etc., do you get the help you need?: I get all the help I need How often do you feel lonely or isolated from those around you?: Never Do you speak a language other than Amharic at home?: No Does the patient want assistance with any of the above?: Yes Social Determinants of Health Comments([facility] Details): lives at the [facility], [place] o2 concentrator not working Health Related Social Needs Health related social needs: inadequate housing (Z59.1), housing instability, housed, with risk of homelessness (Z59.811), food insecurity (Z59.41), material hardship(utilities) (Z59.12) and problems related to housing/economic circumstances (Z59.89) ON LICENSE OF [facility] All Active Problems (Updated 04/19/24 @ 14:56 by Shelbi Schroeder NP) DVT prophylaxis (Acute) HIV positive (Acute) Acute hypoxic respiratory failure (Acute) Pneumocystis jiroveci pneumonia (Acute) AIDS (acquired immune deficiency syndrome) (Acute) COVID-19 (Acute) Pneumonia (Acute) Thrombocytopenia (Chronic) Hypoxia (Acute) COVID-19 virus infection (Acute) COPD exacerbation (Acute) Hypoxemia (Acute) Pneumonia (Acute) Pulmonary nodules (Acute) Chest pain at rest (Acute) Coronary artery disease (Chronic) Activity of daily living alteration (Acute) Pulmonary infiltrate (Acute) 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) Respiratory failure with hypoxia (Acute) COPD (chronic obstructive pulmonary disease) (Chronic) RODRIGUEZ (dyspnea on exertion) (Acute) sat [address] to office Chronic obstructive pulmonary disease with hypoxia (Acute) Unexplained weight loss (Acute) Pneumonia 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 (Acute ~02/2021) Odynophagia (Acute) Adult failure to thrive (Acute) Vitamin D deficiency (Acute) Hypomagnesemia (Acute) 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) COVID (Acute) February 2019 Elevated troponin (Acute) Headache (Acute) Tobacco abuse (Acute) Medical History COPD (chronic obstructive pulmonary disease) HTN (hypertension) Restrictive airway disease Surgical History No significant past surgical history Social History Smoking/Tobacco Use Status: Current every day Smoking risk assessment performed?: Yes Alcohol Intake: current Alcohol Intake frequency: holidays/special occasions only Drug use: Occasionally Substance use type: marijuana Details: trying to quit smoking 02/06/24 Housing: homeless Do you feel safe at home: Yes Do you feel safe in your relationship?: Yes Additional Social history: living in [facility] currently 02/06/24
--- NOTE | 2024-04-20 13:19 | NUR.NOTE ---
Documentation reviewed with NGUYỄN Jacob student agree with findings. Bárbara Carney, MSN, RNC-OB (clinical instructor)
--- NOTE | 2024-04-20 13:27 | DSE_ITS ---
Date of service: 04/20/24 Time of Service: 14:00 DS: Diagnosis Discharge Diagnosis (1) Pneumonia: Status: Acute (2) COPD (chronic obstructive pulmonary disease): (3) AIDS (acquired immune deficiency syndrome): Status: Acute Discharge Plan Disposition Patient Disposition: Home Condition: Improving Discharge Details Reason For Visit: Hypoxic Resp Failure, Pneumonia Admit Date/Time: 04/19/24 13:43 Admit Provider: Camacho Nunez Attending Provider: Camacho Nunez Primary Care Provider: Erwin Sahu Hospital Course Hospital Course: The patient is a 64-year-old male with a history of HIV, COPD, and acute hypoxic respiratory failure. He initially presented to the Emergency Department on 04/18/24 for shortness of breath and hypoxia. Despite the recommendation for hospitalization, the patient left the ED against medical advice after being informed of the risks involved, including worsening respiratory failure. He was prescribed prednisone and azithromycin and discharged from the ED. Approximately 4 hours later, the patient returned to the ED with persistent shortness of breath. He was found to be oxygenating in the mid-80s on room air and had difficulty managing his condition at home, partly due to a malfunctioning oxygen concentrator. After re-evaluation, the patient was admitted for acute hypoxic respiratory failure in the setting of a COPD exacerbation and possible pneumonia. Chest xray - bilateral multifocal pneumonia. WBC 12.62 down to 8.61; chemistry unremarkable. Sputum culture moderate white blood cells, few epithelial cells and rare gram positive cocci. Blood cultures pending. During his hospital stay, the patient?s oxygenation improved with appropriate treatments, which included nebulizer treatments, oxygen support, steroids, and antibiotics. He was educated on proper oxygen use and pulmonary hygiene, and new oxygen equipment was provided. Upon discharge, the patient was given prescriptions for the continuation of prednisone, azithromycin, and a new course of cefpodoxime. He was instructed to use his oxygen at home now that the concentrator is working correctly. Discharge Diagnosis: * Acute Bilateral Multifocal Pneumonia * Chronic Obstructive Pulmonary Disease Exacerbation * Acquired Immunodeficiency Syndrome * Acute Hypoxic Respiratory Failure Discharge Condition: Fair. Medications at Discharge: * Prednisone 20 mg tablet * 40 mg PO daily for 5 days * Azithromycin 250 mg tablet * 250 mg PO daily for 5 days * Cefpodoxime 200 mg tablet * 200 mg PO twice a day for 5 days Oxygen Therapy: * The patient was instructed to use home oxygen as prescribed. * New prescription provided for oxygen supplies. Follow-Up Appointments: * Primary Care Provider * Follow-up with Dr. Erwin Sahu 04/23/2024 @ 104 * Pulmonology * Appointment scheduled for 06/03/2024 at 09:15 with MARA Salas. Discharge Instructions: * COPD Exacerbation & Pneumonia: Continue prescribed medications (prednisone, azithromycin, cefpodoxime) as directed. * Pulmonary Hygiene: Encouraged the patient to perform pulmonary toilet and follow breathing exercises as advised by the respiratory team. * Oxygen Use: Continue using oxygen at home, ensuring the concentrator is working and that oxygen levels are maintained at greater than 88%. The patient should use oxygen during any exertion. * Activity: Gradually increase activity as tolerated, but monitor oxygen saturation closely. * Diet & Hydration: No specific dietary restrictions, but ensure proper hydration. * Warning Signs: Return to the ED if there is any worsening of shortness of breath, chest pain, or new symptoms of infection (e.g., fever). Follow-up Recommendations: * The patient should return to the hospital if there is a deterioration in his condition or if he experiences severe shortness of breath or worsening oxygenation. * If there are any concerns with his oxygen or medications, he should contact his primary care provider or return to the ED. The patient demonstrated understanding of his condition, medications, and the importance of follow-up care. He was discharged in stable condition with plans for continued outpatient management. Discharge Status: * Discharged to home * Disposition: Stable, with a plan for outpatient follow-up and further management of COPD and pneumonia. Home Meds and New Rx's Prescriptions: New cefpodoxime 200 mg tablet 200 mg PO BID Qty: 10 0RF Rx Instructions: must administer with a meal/food Continued Biktarvy 50-200-25 mg tablet 1 tab PO DAILY (DME) Oxygen Tank See Rx Instructions .Route Qty: 1 0RF Rx Instructions: 1 LPM with exertion Trelegy Ellipta 100-62.5-25 mcg blister with device 1 inh inhalation DAILY Qty: 60 12RF pantoprazole 40 mg tablet,delayed release (DR/EC) See Rx Instructions .ROUTE .COMPLEX Qty: 60 12RF Dose Instruction: TAKE ONE TABLET BY MOUTH TWICE A DAY Rx Instructions: TAKE ONE TABLET BY MOUTH TWICE A DAY amlodipine 5 mg Tablet 5 mg PO DAILY Qty: 30 0RF albuterol sulfate 90 mcg/actuation HFA aerosol inhaler 2 puff INHALATION Q4H PRN PRN Rx Instructions: 2 PUFFS Q4-6H PRN ascorbic acid (vitamin C) [Vitamin C] 500 mg Tablet 1,000 mg PO BID Qty: 112 0RF cholecalciferol (vitamin D3) 25 mcg (1,000 unit) Tablet 2,000 units PO DAILY Qty: 30 0RF venlafaxine 75 mg capsule,extended release 24hr 1 cap PO DAILY Patient Comments: TAKE ONE CAPSULE BY MOUTH EVERY DAY azithromycin 250 mg tablet 250 mg PO DAILY 4 Days Qty: 4 0RF Rx Instructions: start on day 2 of therapy (04/19/2024) prednisone 20 mg tablet 40 mg PO DAILY 4 Days Qty: 8 0RF Rx Instructions: Start 04/19/2024 Discharge Instructions Instructions: Azithromycin (Systemic), Community-acquired pneumonia in adults, Cefpodoxime, Prednisone Additional Instructions: * Continue azithromycin and prednisone as prescribed. * Start cefpodoxime (antibiotic) for 5 days. * Use your oxygen at home now that your concentrator is operating correctly. * Continue all other home medications as previously prescribed. * Primary Care Provider * Follow-up with Dr. Erwin Sahu 04/23/2024 @ 1045 Pulmonology * Appointment scheduled for 06/03/2024 at 09:15 with MARA Salas.. Stand Alone Forms: Nursing Discharge Form Referrals: Erwin Sahu MD [Primary Care Provider] - 04/23/24 10:45 am (Post-inpatient hospitalization follow-up for PNA - d/c with prednisone, azithromycin, cefpodoxime, and continued O2 at home. I spoke with MARA Salas at Pulmonology. The patient?s last visit with Dr. Brown was in 2021. Erika Arevalo has agreed to follow up with the patient. An appointment with her has been scheduled for [place] on 06/03/24 @ 0915h for further evaluation and management.) Erika Arevalo PA [[employer]] - 06/03/24 9:15 am () Activity:: Activity as Tolerated Equipment/Supplies:: Oxygen (L/min Below) Diet:: Carb Counting Discharge Orders Discharge Orders: Discharge Order (Routine); Ordered 04/20/24 Ordered By: Beena Townsend Discharge Data Discharge Date/Time-TO BE ENTERED AT DEPARTURE: 04/20/24 16:24 DS: Summary Time Spent with Patient providing and/or coordinating discharge services: Greater than 30 minutes Status at Discharge Functional status at discharge: independent ambulation Overall status at discharge: patient is back to baseline Mental Status: mental status grossly normal Speech and Movement: speech and movement normal Mood: congruent mood Affect: normal affect Quality:SDOH Health Related Social Needs: Health related social needs inadequate housing (Z59.1) , housing instability, housed, with risk of homelessness (Z59.811), food insecurity (Z59.41), material hardship(utilities) (Z59.12), problems related to housing/ economic circumstances (Z59.89) Exam Narrative Exam Narrative: VITALS: Reviewed. WEIGHT/BMI reviewed. GEN: Chronically ill appearing, no acute distress. PSYCH: AOx4. Normal memory, mood, and affect. HEENT -Head: NC/AT; -Eyes: PERRL, EOMI. No discharge or redness; -Ears: External ears are normal. -Nose: Normal nares. -Mouth and throat: MMM. Normal gums, mucosa, palate,. Poor dentition, poor oral health NECK: Supple, with no masses. CV: RRR, no m/r/g. LUNGS: CTAB, no w/r/c. ABD: Soft, NT/ND, NBS, no masses or organomegaly. : N/A SKIN: Warm, well perfused. No skin rashes or abnormal lesions. MSK: No deformities or signs of scoliosis. Normal gait. EXT: No clubbing, cyanosis, or edema. NEURO: Ambulating with no limitations. Normal muscle strength and tone. No focal deficits. Psych Mental Status: mental status grossly normal Speech and Movement: speech and movement normal Mood: congruent mood Affect: normal affect DS: Data Vitals/I&O Vitals and I&O: Vital Signs Temperature 37.2 C 04/20/24 12:38 Temperature Source Temporal Artery Scan 04/20/24 12:38 Pulse 85 04/20/24 12:48 Pulse Rhythm Regular 04/19/24 14:58 Pulse 70 04/19/24 14:16 Respiratory Rate 20 04/20/24 12:47 Respiratory Effort Short of Breath 04/19/24 14:58 Respiratory Depth Normal 04/19/24 14:58 Respiratory Pattern Tachypnea 04/19/24 14:58 Blood Pressure 132/81 04/20/24 12:38 Blood Pressure Mean 109 04/19/24 14:16 Blood Pressure Position Supine 04/19/24 12:02 Pulse Oximetry 95 04/20/24 12:48 Oxygen Delivery Method Nasal Cannula 04/20/24 12:55 Oxygen Flow Rate 2 04/20/24 12:55 Pain Level 0 04/20/24 12:47 Comment 2L 04/19/24 14:16 Intake & Output 04/19/24 04/20/24 04/20/24 23:59 11:59 23:59 Intake Total 280 / 280 480 / 660 180 / 660 Balance 280 / 280 480 / 660 180 / 660 Weight 74.834 kg Intake: IV 100 / 100 Oral 180 / 180 480 / 660 180 / 660 Other: Urine Color Yellow Urine Odor Normal Comment independent void x 1, unmeasured Unable to measure pt not using the hat to monitor. Data Completed and Pending Labs on day of discharge: Labs from last 24 hours 04/20/24 04/19/24 04/19/24 06:16 13:12 12:03 WBC 8.61 RBC 4.70 Hgb 14.0 Hct 41.3 MCV 88 MCH 29.8 MCHC 33.9 RDW 14.9 H Plt Count 166 MPV 10.0 Immature Gran % 0.3 Neutrophils % 82.1 Lymphocytes % 11.7 Monocytes % 5.5 Eosinophils % 0.1 Basophils % 0.3 Nucleated RBC % 0.0 Absolute Neutrophils 7.06 H Absolute Lymphocytes 1.01 L Absolute Monocytes 0.47 Absolute Eosinophils 0.01 Absolute Basophils 0.03 Sodium 139 Potassium 4.1 Chloride 102 Carbon Dioxide 28.8 Anion Gap 8.2 BUN 17 Creatinine 1.1 Est GFR (CKD-EPI 2020) 75.90 Glucose 85 Calcium 8.8 Total Bilirubin 0.3 AST 19 ALT 25 Alkaline Phosphatase 79 Total Protein 6.6 Albumin 2.7 L Procalcitonin % CD3 Cells Pending Absolute CD3 Count Pending % CD4 Cells Pending Absolute CD4 Count Pending CD4/CD8 Ratio Pending % CD8 Cells Pending Absolute CD8 Count Pending COVID-19 Source Cancelled SARS-CoV-2 (PCR) Cancelled HIV-1 RNA Quant Pending HIV-1 RNA Qualitative Pending Influenza Type A (PCR) Cancelled Influenza Type B (PCR) Cancelled RSV (PCR) Cancelled Add-On Test Request 04/19/24 12:02 WBC RBC Hgb Hct MCV MCH MCHC RDW Plt Count MPV Immature Gran % Neutrophils % Lymphocytes % Monocytes % Eosinophils % Basophils % Nucleated RBC % Absolute Neutrophils Absolute Lymphocytes Absolute Monocytes Absolute Eosinophils Absolute Basophils Sodium Potassium Chloride Carbon Dioxide Anion Gap BUN Creatinine Est GFR (CKD-EPI 2020) Glucose Calcium Total Bilirubin AST ALT Alkaline Phosphatase Total Protein Albumin Procalcitonin 5.13 % CD3 Cells Absolute CD3 Count % CD4 Cells Absolute CD4 Count CD4/CD8 Ratio % CD8 Cells Absolute CD8 Count COVID-19 Source SARS-CoV-2 (PCR) HIV-1 RNA Quant HIV-1 RNA Qualitative Influenza Type A (PCR) Influenza Type B (PCR) RSV (PCR) Add-On Test Request DONE 04/19/24 19:57 Sputum Sputum Culture - Pending Preliminary micro results at discharge 04/19/24 19:57 Sputum Culture - Pending Sputum PFSH All Active Problems (Updated 04/19/24 @ 14:56 by Shelbi Schroeder NP) DVT prophylaxis (Acute) HIV positive (Acute) Acute hypoxic respiratory failure (Acute) Pneumocystis jiroveci pneumonia (Acute) AIDS (acquired immune deficiency syndrome) (Acute) COVID-19 (Acute) Pneumonia (Acute) Thrombocytopenia (Chronic) Hypoxia (Acute) COVID-19 virus infection (Acute) COPD exacerbation (Acute) Hypoxemia (Acute) Pneumonia (Acute) Pulmonary nodules (Acute) Chest pain at rest (Acute) Coronary artery disease (Chronic) Activity of daily living alteration (Acute) Pulmonary infiltrate (Acute) 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) Respiratory failure with hypoxia (Acute) COPD (chronic obstructive pulmonary disease) (Chronic) RODRIGUEZ (dyspnea on exertion) (Acute) sat 78 [address] to office Chronic obstructive pulmonary disease with hypoxia (Acute) Unexplained weight loss (Acute) Pneumonia 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 (Acute ~02/2021) Odynophagia (Acute) Adult failure to thrive (Acute) Vitamin D deficiency (Acute) Hypomagnesemia (Acute) 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) COVID (Acute) February 2019 Elevated troponin (Acute) Headache (Acute) Tobacco abuse (Acute) Medical History COPD (chronic obstructive pulmonary disease) HTN (hypertension) Restrictive airway disease Surgical History No significant past surgical history Social History Smoking/Tobacco Use Status: Current every day Smoking risk assessment performed?: Yes Alcohol Intake: current Alcohol Intake frequency: holidays/special occasions only Drug use: Occasionally Substance use type: marijuana Details: trying to quit smoking 02/06/24 Housing: homeless Do you feel safe at home: Yes Do you feel safe in your relationship?: Yes Additional Social history: [facility] currently 02/06/24 Time Spent with Patient Time Spent with Patient: 70-84 minutes4 Time was spent: preparing to see the patient(eg.review tests), obtaining and/or reviewing separately otained hiistory, ordering medications,tests, procedures, referring, communicating with other health caretaker, indepentently interpreting results, counseling the patient and care coordination
--- NOTE | 2024-04-20 16:37 | RESPIRATORY ---
Pt has [employer] concentrator from [employer]. SN [id number]. Rental #[id number]. Pt had machine brought in to hospital for discharge home today. RT cleaned machine, plugged it in and charged battery to 25% before pt was adamant about discharging home. RT confirmed machine was working correctly and holding battery life, and replaced all the old tubing and cannula with new ones. RT discussed with patient the importance of wearing O2 24/7 as he is supposed to, and especially while he is exerting himself and using more energy.
--- NOTE | 2024-04-21 09:24 | NUR.NOTE ---
Patient EKG was performed after time change. It is 1 hour off. Nursing Note:
[2024-04-21 14:11] LABS: 4/8 Ratio 0.31 (>=0.90); Absolute CD3 618 Cells/uL (840-2669); Absolute CD8 464 Cells/uL (154-1097); CD3 52 % (56-84); CD4 12 % (31-64); CD8 39 % (9-39)
[2024-04-23 12:46] LABS: HIV 1 RNA Qualitative Undetected Copys/mL (Undetected)
== END 2024-04-20 16:24 | disposition home or self-care (01) | DRG 190 ==
LOC: ER 14:16 → MS 14:24
PROVIDERS: Nurse Practitioner Acute Care; Admitting Provider Hospitalist; Emergency Provider Physician Assistant; PCP Family Medicine; Responsible Provider Nurse Practitioner Family; Visit Provider Hospitalist
DX: J44.0 Chronic obstructive pulmonary disease with (acute) lower respiratory infection (principal); J18.9 Pneumonia, unspecified organism; J96.01 Acute respiratory failure with hypoxia; B20 Human immunodeficiency virus [HIV] disease; J44.1 Chronic obstructive pulmonary disease with (acute) exacerbation; Z66 Do not resuscitate; K21.9 Gastro-esophageal reflux disease without esophagitis; D69.6 Thrombocytopenia, unspecified; R91.8 Other nonspecific abnormal finding of lung field; I25.10 Atherosclerotic heart disease of native coronary artery without angina pectoris; E55.9 Vitamin D deficiency, unspecified; F17.210 Nicotine dependence, cigarettes, uncomplicated; Z79.899 Other long term (current) drug therapy
CPT/HCPCS: 00123; 36415; 80053; 82805; 84145; 87040; 87536; 87637; 93005; 94640; 94761; 99291; J1650; 71046; 83605; 83615; 83880; 84484; 85025; 86359; 86360; 87070; 87205; 93010; 94664; 94667; 94668; 94760; 99223; 99239; J0696; J7512; J7620

== ENCOUNTER → 2024-06-09 08:26 | Outpatient (BNVA) | payer MEDICARE, MEDICAID, SELFPAY | PROVIDERS: PCP Family Medicine; Referring Provider Family Medicine; Visit Provider Physician Assistant Surgical | DX: J44.9 Chronic obstructive pulmonary disease, unspecified (principal); J96.91 Respiratory failure, unspecified with hypoxia; U09.9 Post COVID-19 condition, unspecified; B59 Pneumocystosis | CPT/HCPCS: 94618; 99214 ==

== ENCOUNTER → 2024-09-09 08:42 | Outpatient (BNVA) | payer MEDICARE, MEDICAID, SELFPAY | PROVIDERS: PCP Family Medicine; Referring Provider Family Medicine; Visit Provider Internal Medicine Pulmonary Disease | DX: J44.9 Chronic obstructive pulmonary disease, unspecified (principal); R91.8 Other nonspecific abnormal finding of lung field; Z72.0 Tobacco use; Z21 Asymptomatic human immunodeficiency virus [HIV] infection status | CPT/HCPCS: 99215 ==

== ENCOUNTER → 2024-11-25 08:47 | Outpatient (BNVA) | payer MEDICARE, MEDICAID, SELFPAY | PROVIDERS: PCP Family Medicine; Referring Provider Family Medicine; Visit Provider Internal Medicine Pulmonary Disease | DX: J44.9 Chronic obstructive pulmonary disease, unspecified (principal); Z72.0 Tobacco use; R91.8 Other nonspecific abnormal finding of lung field | CPT/HCPCS: 99214 ==

== ENCOUNTER 2024-11-25 09:33 | Outpatient (CLI) | payer MEDICARE, SELFPAY ==
[2024-11-25 09:55] LABS: Abs Immature Grans 0.01 10^3/uL (0.0-0.06); HCT 48.2 % (40.0-50.0); HGB 15.6 g/dL (13.5-17.5); Immature Grans % 0.2 %; MCH 28.3 pg (27.0-33.0); MCHC 32.4 % (32.0-36.0); MCV 87 fL (80-95); MPV 9.0 fL (8.0-11.0); Platelet Count 233 10^3/uL (130-400); RBC 5.52 10^6/uL (4.36-5.78); RDW 15.2 % (11.8-14.1); RDW-SD 48.6 fL; WBC 6.10 10^3/uL (4.4-10.8)
[2024-11-25 10:21] LABS: ALT 24 U/L (16-63); AST 18 U/L (15-37); Albumin 3.6 g/dL (3.4-5.0); Alkaline Phosphatase 121 U/L (46-116); Anion Gap 7.1 mmol/L (3-11); BUN 13 mg/dL (7-18); Bilirubin, Total 0.5 mg/dL (0.2-1.0); CO2 29.9 mmol/L (21.0-32.0); Calcium 9.3 mg/dL (8.5-10.1); Chloride 101 mmol/L (98-107); Estimated GFR 68.38 (mL/min/1.73m2); Glucose 118 mg/dL (74-106); Potassium 4.5 mmol/L (3.5-5.1); Sodium 138 mmol/L (136-145); Total Protein 7.9 g/dL (6.4-8.2)
[2024-11-26 12:50] LABS: HIV 1 RNA Quantitative 635 Copys/mL (Undetected)
[2024-11-26 16:03] LABS: CD3 74 % (56-84); CD4 12 % (31-64); CD8 60 % (9-39)
== END 2024-11-25 09:34 | disposition home or self-care (01) ==
LOC: LBO 09:34
PROVIDERS: PCP Family Medicine; Visit Provider Nurse Practitioner Family
DX: B20 Human immunodeficiency virus [HIV] disease (principal)
CPT/HCPCS: 36415; 80053; 87536; 99214; 71046; 85025; 86359; 86360

== ENCOUNTER 2024-11-25 09:35 | Outpatient (CLI) | payer MEDICARE, SELFPAY ==
--- NOTE | 2024-11-25 09:15 | DI.RAD_ITS ---
Exam(s) XR CHEST 2V PA LATERAL EXAM: XR CHEST 2V PA LATERAL CLINICAL HISTORY: cough, pulmonary infiltrates, ABN FINDINGS OF LUNG FIELD, R91.8 TECHNIQUE: 2D digital imaging was performed. Two views. COMPARISON: CT CT CHEST PE CTA from 04/18/2024 CR,XR XR CHEST 2V PA LATERAL from 04/19/2024 FINDINGS: HEART: Normal size. Aorta: Not dilated. PULMONARY VASCULATURE: Normal. MEDIASTINUM: Unremarkable. LUNGS: Hyperinflated but clear. PLEURAL SPACE: No pleural effusion or pneumothorax. BONE:Unremarkable for age. SOFT TISSUES: Unremarkable. IMPRESSION: Hyperinflation consistent with COPD. No acute abnormality. Previously noted pulmonary infiltrates have resolved. DATA REPOSITORY: RADIATION DOSE DELIVERED:
== END 2024-11-25 09:55 ==
LOC: DI 09:35
PROVIDERS: PCP Family Medicine; Visit Provider Internal Medicine Pulmonary Disease
DX: J44.9 Chronic obstructive pulmonary disease, unspecified (principal)
CPT/HCPCS: 71046